=== PATIENT | male | born 1990 | race Caucasian/White ===

== ENCOUNTER 2019-05-20 06:00 | Outpatient (RCR) | payer MEDICARE, MEDICAID, SELFPAY | END 2019-06-05 23:59 | disposition home or self-care (01) | LOC: APT 06:00 | PROVIDERS: Family Provider Nurse Practitioner Family; PCP Family Medicine; Referring Provider Nurse Practitioner Family; Visit Provider Nurse Practitioner Family | DX: M54.5 Low back pain (principal) | CPT/HCPCS: 97110; 97161 ==

== ENCOUNTER 2019-05-26 16:17 | Outpatient (CLI) | payer OTHER, MEDICARE, MEDICAID, SELFPAY ==
--- NOTE | 2019-05-26 16:00 | MR_ITS ---
WS: [id number] MRI LUMBAR SPINE NONCONTRAST TECHNIQUE: Sagittal T1, T2 and STIR imaging. Axial T1 and T2 imaging. CLINICAL INFORMATION: see dx FINDINGS: Mild lumbar curve. Chronic appearing compression L1 vertebral body appears unchanged since CT abdomen pelvis . Chronic anterior wedging at this level. Small disc protrusions in the lower thoracic spine with slight effacement of ventral thecal sac more prominent at T9-T10, T10-11, T11-T12, and T1 2-L1. This is only covered on the sagittal imaging. L1-L2: Mild chronic retropulsion at L1 with slight effacement of the ventral thecal sac and mild cent ral canal stenosis. No significant disc bulging at L1-2.Mild facet arthropathy. Foramen are patent. L2-L3: Normal. L3-L4: Slight retrolisthesis L3 on L4. Mild annular bulging. Mild left and no significant right tyra inal narrowing. Mild facet arthropathy. Spinal canal is patent. L4-L5: Slight annular bulging. Moderate facet arthropathy. Mild right and no significant left foramin al narrowing. L5-S1: Slight annular bulging. Mild left and no significant right foraminal narrowing. Mild to modera te facet arthropathy. Visualized pelvic bony structures: Normal. Paravertebral soft tissues: Normal. MR/MR lumbar spine wo con* [id number] IMPRESSION: 1. Chronic compression L1 vertebral body with anterior wedging. This is unchan ged since CT June 12, 2018. Mild chronic retropulsion at L1 with mild central canal stenosis. 2. Prominent disc protrusions in the lower thoracic spine with slight effaceme nt of ventral thecal sac at T9-T10, T10-11, T11-12, T12-L1. This is only covere d on the sagittal imaging. 3. Mild left L3-4, right L4-5 and left L5-S1 foraminal narrowing. 4. Mild to moderate facet arthropathy L4-L5 and L5-S1.
== END 2019-05-26 16:18 ==
PROVIDERS: Family Provider Nurse Practitioner Family; PCP Nurse Practitioner Family; Visit Provider Nurse Practitioner Family
DX: M54.5 Low back pain (principal)
CPT/HCPCS: 72148; 99213; 99999

== ENCOUNTER 2019-05-27 20:00 | Outpatient (CLI) | payer MEDICARE, MEDICAID, SELFPAY | END 2019-05-27 20:01 | disposition home or self-care (01) | LOC: SLEEP 05-28 09:47 | PROVIDERS: Family Provider Nurse Practitioner Family; PCP Nurse Practitioner Family; Visit Provider Nurse Practitioner Family | DX: G47.33 Obstructive sleep apnea (adult) (pediatric) (principal) | CPT/HCPCS: 95810; 95811 ==

== ENCOUNTER 2019-06-06 06:00 | Outpatient (RCR) | payer MEDICARE, MEDICAID, SELFPAY | END 2019-07-06 23:59 | disposition home or self-care (01) | LOC: APT 06:00 | PROVIDERS: Family Provider Nurse Practitioner Family; PCP Nurse Practitioner Family; Referring Provider Nurse Practitioner Family; Visit Provider Nurse Practitioner Family | DX: M54.5 Low back pain (principal) | CPT/HCPCS: 97110; 97164 ==

== ENCOUNTER → 2019-06-08 12:48 | Outpatient (BNVA) | payer MEDICARE, MEDICAID, SELFPAY | PROVIDERS: Family Provider Nurse Practitioner Family; PCP Nurse Practitioner Family; Visit Provider Anesthesiology Pain Medicine | DX: G89.29 Other chronic pain (principal); M54.5 Low back pain | CPT/HCPCS: 99213; 99999 ==

== ENCOUNTER → 2019-08-03 11:23 | Outpatient (BNVA) | payer MEDICARE, SELFPAY | PROVIDERS: Family Provider Nurse Practitioner Family; PCP Nurse Practitioner Family; Visit Provider Nurse Practitioner | DX: E11.9 Type 2 diabetes mellitus without complications (principal); E55.9 Vitamin D deficiency, unspecified | CPT/HCPCS: 80053; 80061; 82306; 83036 ==

== ENCOUNTER 2019-08-05 11:04 | Outpatient (CLI) | payer MEDICARE, MEDICAID, SELFPAY ==
--- NOTE | 2019-08-05 11:30 | XR_ITS ---
WS: [id number] LUMBAR SPINE FLEXION AND EXTENSION TECHNIQUE: 3 views of the lumbar spine: Lateral neutral, flexion, and extension views. CLINICAL INFORMATION: Low back pain COMPARISON: None. FINDINGS: Anterior wedging with compression at L1 measuring approximately 60%. No retropulsion. No instability on flexion-extension. Mild facet arthropathy L5-S1. XR/XR lumbar spine f/e only [id number] IMPRESSION: 1. Anterior wedging with chronic compression at L1 is unchanged since May 26, 2019 with mild focal kyphosis at this level. 2. No instability on flexion extension.
== END 2019-08-05 11:05 | disposition home or self-care (01) ==
LOC: RADWPI 11:11
PROVIDERS: Family Provider Nurse Practitioner Family; PCP Nurse Practitioner Family; Visit Provider Licensed Practical Nurse
DX: M54.5 Low back pain (principal); M48.56XA Collapsed vertebra, not elsewhere classified, lumbar region, initial encounter for fracture; X58.XXXA Exposure to other specified factors, initial encounter
CPT/HCPCS: 72120

== ENCOUNTER → 2019-08-06 08:25 | Outpatient (BNVA) | payer MEDICARE, MEDICAID, SELFPAY | PROVIDERS: Family Provider Nurse Practitioner Family; PCP Nurse Practitioner Family; Visit Provider Nurse Practitioner | DX: F31.9 Bipolar disorder, unspecified (principal); F41.1 Generalized anxiety disorder | CPT/HCPCS: 99213 ==

== ENCOUNTER 2019-08-12 15:50 | Emergency (ER) | payer MEDICARE, MEDICAID, SELFPAY ==
[2019-08-12 16:00] VITALS: BP 128/80; PULSE 103; RESP 20; TEMP 36.6; O2SAT 96; BMI 38.4
[2019-08-12 16:20] VITALS: RESP 16
--- NOTE | 2019-08-12 16:21 | XR_ITS ---
WS: [id number] XR chest 1V portable [id number] REASON FOR EXAM: dyspnea/cough FINDINGS: The lung marquez are mildly hypoaerated. The heart and mediastinal interfaces normal. No active infiltrates, pneumonia, pulmonary edema, or pleural effusion. The hilum and apices are normal. No osseous abnormalities. XR/XR chest 1V portable [id number] IMPRESSION: Mildly hypoaerated lungs.
--- NOTE | 2019-08-12 16:29 | W.ED.SOB ---
HPI - SOB/Dyspnea General: Chief Complaint: Shortness of Breath/Dyspnea Stated Complaint: SOB Time Seen by Provider: 08/12/19 16:07 History of Present Illness: HPI Narrative: 29-year-old male comes in he was having an asthma attack he states while at [employer] at work. He did not have his albuterol inhaler with him symptoms have mostly resolved he reports having some tightness on the right side of his chest radiating across the front of his chest and upper abdomen he is not had any nausea vomiting or diarrhea no fever sweats chills no dysuria urgency or frequency. He is not had a productive cough. This began suddenly while at work [employer] at work and is resolved now. He has no residual wheezing at this time. MD elicited complaint: asthma attack Pertinent past history: asthma Onset (ago): hour(s) Context: anxiety Timing: now resolved Severity: mild Known history of: asthma Associated symptoms: Reports chest pain; Deny abdominal pain, fever(s), nausea or vomiting Review of Systems Const: Denies: fever, chills, body aches, change in appetite, fatigue or malaise ENMT: Denies: throat pain, ear pain, nasal discharge or nasal congestion Card: Reports: chest pain Resp: Denies: shortness of breath, productive cough or non-productive cough GI: Denies: abdominal pain, nausea, vomiting, vomiting blood, coffee grounds in vomit, diarrhea, constipation, bloating, blood in stool or black tarry stool : Denies: flank pain, painful urination, urinary frequency or urinary urgency Skin/Breast: Denies: rash or itching PFSH ED PFSH: Medical History Asthma Attention-deficit hyperactivity disorder, predominantly inattentive type Bipolar disorder, unspecified Displacement of lumbar intervertebral disc Generalized anxiety disorder Intervertebral disc disorder with radiculopathy of lumbosacral region Thoracic degenerative disc disease Surgical History History of splenectomy Hx of tonsillectomy Family History Mother Cancer Diabetes Family/Other Cancer UNCLE Denies family history of Anesthesia complication Bleeding disorder Social History Smoking and tobacco status: never smoked Alcohol intake: never Household members: family Marital status: Single Number of children: 0 Current occupational status: disabled History of recent travel: No Physical Exam Const: COMMON NORMALS: no apparent distress GENERAL APPEARANCE: cooperative and comfortable ORIENTATION/CONSCIOUSNESS: Yes awake, Yes oriented to person, Yes oriented to place and Yes oriented to time HENMT: COMMON NORMALS: normocephalic, head/scalp atraumatic, hearing grossly normal bilaterally, external ears normal, EAC's normal, TM's normal bilaterally, nasal mucous membranes and turbinates normal, moist oral mucous membranes and oropharynx normal HEAD & SCALP: normocephalic and atraumatic NOSE: nasal mucous membranes and turbinates normal EXTERNAL EAR: Yes external ears normal EXTERNAL AUDITORY CANAL: EAC's normal TYMPANIC MEMBRANE: TM's normal bilaterally Eye: COMMON NORMALS: PERRL, EOMs intact bilaterally, conjunctivae normal and no scleral icterus CONJUNCTIVA: Yes conjunctivae normal PUPIL: Yes PERRL Neck/C-Spine: COMMON NORMALS: full ROM, no lymphadenopathy, supple and no JVD Lymph: LYMPHATIC: no lymphadenopathy noted and no lymphedema noted Resp: COMMON NORMALS: normal respiratory effort, no retractions, no use of accessory muscles and clear to auscultation bilaterally AUSCULTATION: clear to auscultation bilaterally Cardio: COMMON NORMALS: no JVD, regular rate, regular rhythm and no murmurs RATE: regular rate RHYTHM: regular rhythm GI: COMMON NORMALS: soft to palpation and no hepatosplenomegaly AUSCULTATION: Yes normoactive bowel sounds PALPATION: Yes soft, No tender, No guarding and Yes no hepatosplenomegaly Extremity: COMMON NORMALS: normal to inspection, normal capillary refill, no clubbing, cyanosis or edema, no calf tenderness and no pedal edema Neuro: SENSORIUM/ORIENTATION: Yes oriented to person, Yes oriented to place and Yes oriented to time Skin: COMMON NORMALS: no rashes or lesions noted GENERAL SKIN EXAM: no rashes or lesions noted Course Vital Signs: Vital signs: Vital Signs Temperature 97.8 F 08/12/19 16:00 Pulse Rate 91 08/12/19 17:13 Respiratory Rate 16 08/12/19 17:13 Blood Pressure 128/80 08/12/19 16:00 Pulse Oximetry 98 08/12/19 17:13 MDM - SOB/Dyspnea MDM Narrative: Medical decision making narrative: Symptoms resolved now. There is no evidence of wheezing on exam. Give a prescription for albuterol inhaler to use PRN. Patient does have a history of some anxiety discussed with her that this might of been precipitated by anxiety especially given that is completely resolved there is no residual findings on physical exam. He acknowledges it could be but is not sure. Have him follow-up with his primary care doctor as needed. Discharge Plan Discharge Patient Disposition: Home, Self-Care Clinical Impression: Asthma Condition: Stable Prescriptions: New albuterol sulfate 90 mcg/actuation HFA aerosol inhaler 2 inh INHALATION Q4H PRN (Reason: shortness of breath or wheezing) Qty: 18 RF: 0 No Action melatonin 5 mg capsule PO .q hs RF: 0 tizanidine 4 mg tablet 4 mg PO TID MDD 3 PRN (Reason: muscle spasticity) Qty: 60 RF: 0 mupirocin calcium 2 % cream 1 applic TOPICAL TID 14 Days Qty: 15 RF: 2 hydroxyzine HCl 25 mg tablet 25 mg PO BID PRNRF: 0 budesonide-formoterol 160-4.5 mcg/actuation HFA aerosol inhaler 2 puff INHALATION Q12H RF: 0 tamsulosin 0.4 mg capsule 0.4 mg PO .day RF: 0 twyrqwc-qitmuwfcphkjd-jcsjngzv 250-250-65 mg tablet 1 tab PO Q6H RF: 0 propranolol 10 mg tablet 10 mg PO .at bed RF: 0 albuterol sulfate [Ventolin HFA] 90 mcg/actuation HFA aerosol inhaler 2 puff INHALATION Q6H PRNRF: 0 lurasidone 120 mg tablet 120 mg PO DAILY Qty: 30 RF: 1 lamotrigine 25 mg tablet 50 mg PO BID Qty: 120 RF: 0 gabapentin 300 mg capsule 300 mg PO BID Qty: 60 RF: 1 atomoxetine 40 mg capsule 40 mg PO BID Qty: 60 RF: 1 zolpidem 5 mg tablet 5 mg PO .q hs Qty: 30 RF: 1 omeprazole 40 mg capsule,delayed release(DR/EC) 40 mg PO DAILY 30 Days Qty: 30 RF: 5 (DME) cpap Qty: 1 RF: 0 fluticasone propionate 50 mcg/actuation spray,suspension 2 spray INTRANASAL DAILY Qty: 11.1 RF: 0 cetirizine 10 mg tablet 10 mg PO DAILY Qty: 30 RF: 0 Discharge Orders: Discharge Order (Routine); Ordered 08/12/19 Ordered By: Kwabena Pryor Referrals: Betzaida Santos FNP-C [Primary Care Provider] - Discharge Date/Time: 08/12/19 17:13 Coding Level of Care Code ED Electronic [employer] Technical for Chg Fwd Exam Comprehensive
[2019-08-12 17:13] VITALS: PULSE 91; RESP 16; O2SAT 98
== END 2019-08-12 17:13 | disposition home or self-care (01) ==
LOC: ER 17:55
PROVIDERS: Emergency Provider Family Medicine; PCP Nurse Practitioner Family
DX: J45.909 Unspecified asthma, uncomplicated (principal); Z79.82 Long term (current) use of aspirin
CPT/HCPCS: 12345; 71045; 99281; 99282

== ENCOUNTER 2019-09-24 12:23 | Outpatient (CLI) | payer MEDICARE, MEDICAID, SELFPAY ==
--- NOTE | 2019-09-24 13:00 | MR_ITS ---
WS: [id number] MRI THORACIC SPINE WITHOUT CONTRAST TECHNIQUE: Sagittal T1, T2 and STIR imaging. Axial T2 imaging. Noncontrast imaging obtained. CLINICAL INFORMATION: M51.34 Other intervertebral disc degeneration, thoracic r... COMPARISON: Lumbar spine MRI May 26, 2019 FINDINGS: Mild thoracic curve. Mild thoracic kyphosis. No acute compression. No acute compression fractures. Ch ronic anterior wedging L1. Small shallow central disc protrusion T6-C7, T7-T8, T8-T9, T9-T10, T10-11, and T12-L1. No high-grade central canal stenosis. Cord signal is normal. Left pericentral protrusion T9-T10 with slight narrowing of the left subarticular recess and mild lef t foraminal narrowing. Small left pericentral protrusion T10-11 with mild central canal stenosis. Mild left T11-T12 and right T10-11 foraminal narrowing. Moderate facet arthropathy lower thoracic spine. Normal caliber thoracic aorta. Adrenal glands are no rmal. MR/MR thoracic spin wo con* [id number] IMPRESSION: 1. Mild thoracic curve. Mild thoracic kyphosis. No acute compression fractures . 2. No significant spinal canal narrowing. Cord signal is normal. 3. Small disc protrusions in the mid and lower thoracic spine described above more prominent at T6-T7, T7-8, T10-11, and T12-L1. 4. Left pericentral protrusion T10-11 with mild central canal stenosis. 5. Mild bony foraminal narrowing left T9-T10, left T11-T12, and right T10-T11
== END 2019-09-24 12:24 | disposition home or self-care (01) ==
LOC: RADSHAW 12:31
PROVIDERS: PCP Nurse Practitioner Family; Visit Provider Specialist
DX: M51.34 Other intervertebral disc degeneration, thoracic region (principal); M51.24 Other intervertebral disc displacement, thoracic region; M48.04 Spinal stenosis, thoracic region
CPT/HCPCS: 72146

== ENCOUNTER → 2019-11-03 12:09 | Outpatient (BNVA) | payer MEDICARE, MEDICAID, SELFPAY | PROVIDERS: PCP Nurse Practitioner Family; Visit Provider Nurse Practitioner Family | DX: E55.9 Vitamin D deficiency, unspecified (principal); K21.9 Gastro-esophageal reflux disease without esophagitis; R82.90 Unspecified abnormal findings in urine; R51 Headache; J45.20 Mild intermittent asthma, uncomplicated; F41.9 Anxiety disorder, unspecified; Z79.899 Other long term (current) drug therapy; N63.0 Unspecified lump in unspecified breast; E11.69 Type 2 diabetes mellitus with other specified complication; J30.89 Other allergic rhinitis; R39.11 Hesitancy of micturition | CPT/HCPCS: 80053; 81000; 82306; 83036; 84443; 85025 ==

== ENCOUNTER → 2019-11-04 13:22 | Outpatient (BNVA) | payer MEDICARE, MEDICAID, SELFPAY | PROVIDERS: PCP Nurse Practitioner Family; Visit Provider Anesthesiology Pain Medicine | DX: M51.34 Other intervertebral disc degeneration, thoracic region (principal); M51.26 Other intervertebral disc displacement, lumbar region; S32.019D Unspecified fracture of first lumbar vertebra, subsequent encounter for fracture with routine healing; X58.XXXD Exposure to other specified factors, subsequent encounter; M51.17 Intervertebral disc disorders with radiculopathy, lumbosacral region | CPT/HCPCS: 99213 ==

== ENCOUNTER 2019-11-04 14:48 | Outpatient (CLI) | payer MEDICARE, MEDICAID, SELFPAY ==
[2019-11-04 15:12] LABS: Basophils # 0.1 10^3/uL (0.0-0.1); Basophils % 0.8 %; Eosinophils # 0.3 10^3/uL (0.0-0.8); Hemoglobin 14.8 g/dL (11.7-16.6); Lymphocytes # 5.1 10^3/uL (0.8-4.8); Lymphocytes % 37.5 %; Mean Corpuscular HGB Conc 32.9 g/dL (30.0-36.0); Mean Corpuscular Hemoglobin 30.3 pg (28.0-34.0); Mean Platelet Volume 10.9 fL (7.4-10.4); Monocytes # 1.5 10^3/uL (0.2-0.9); Neutrophils # 6.52 10^3/uL (1.8-7.7); Neutrophils % 48.5 %; Nucleated Red Blood Cells % 0 %; Platelet Count 559 10^3/cmm (130-400); Red Blood Count 4.89 10^6/uL (4.1-5.3); Red Cell Distribution Width 14.6 % (12.1-15.1); White Blood Count 13.5 10^3/uL (4.0-10.0)
[2019-11-04 15:33] LABS: Alanine Aminotransferase 35 U/L (0-41); Albumin Level 4.6 g/dL (3.5-5.2); Alkaline Phosphatase 98 IU/L (40-130); Aspartate Amino Transferase 31 U/L (0-40); Blood Urea Nitrogen 11 mg/dL (6-20); Calcium 9.6 mg/dL (8.5-10.5); Carbon Dioxide 24 mmol/L (22-29); Chloride 103 mmol/L (98-107); Globulin 2.8 g/dL (1.3-4.6); Glomerular Filtration Rate 115.1 mL/min (90-130); Glucose 93 mg/dL (65-115); Osmolality Calculated 282 mOsm/kg (285-295); Sodium 138 mmol/L (136-145); Total Bilirubin 0.3 mg/dL (0.15-1.2); Total Protein 7.4 g/dL (6.6-8.7)
[2019-11-04 16:03] LABS: Anion Gap 14.9 (5-19); Potassium 3.9 mmol/L (3.5-5.1)
--- NOTE | 2019-11-05 11:59 | ONC FU_ITS ---
Dr. Zuniga follow up note Patient: Willi Meadows Unit #: [id number]: 1990 Dicatated By: Randolph Zuniga M.D.Date of Visit:Nov 04, 2019 Onc Med Follow-up/Prog Note History of Present Illness: Mr. 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 Since then his white blood count and platelets go up and down . Patient denies any history of abnormal bleeding except gum bleed but he has some dental problem for which he is seeing dentist. Other than that no history of petechiae or ecchymosis, no history of hemoptysis or hematemesis. No night sweats, no weight loss, no peripheral lymphadenopathy, no history of recurrent infections Came for follow-up, denies any specific complaints, no fever chills, no nausea or vomiting, no diarrhea or constipation, no abdominal fullness, no recurrent fever or infection. Patient has history of chronic back pain, which is being managed by pain clinic and patient said he is considering steroid injection to his back and need clearance from hematology. Medications: Ambien 1 Tablet (of 10 mg) Oral at bedtime, Flomax 1 (0.4 mg) Capsule Oral daily, Latuda 1 (120 mg) Tablet Oral daily, Meclizine HCl 1 (25 mg) Tablet Oral daily, Omeprazole 1 (40 mg) Capsule Delayed Release Oral daily, Strattera 1 Capsule (of 40 mg) Oral daily, Vitamin D2 1 (45049 Units) Tablet Oral q 7 days Allergies: Adhesive Tape, anesthesia extension set, Depakote ER, Insect stings, LATEX, morphine derivatives, Peanut, and Penicillins. Review of Systems: Constitutional - His energy level is low. Appetite is good and weight is stable. No fever, chills, hot flashes, or night sweats, ENMT - No sinus congestion/drainage. No mouth sores. No sore throat or difficulty swallowing, Hematologic/Lymphatic - He bruises easily, Respiratory - He has shortness of breath with activity. No cough. No pleuritic pain, Cardiovascular - No angina pain, Gastrointestinal - He has nausea. No vomiting. He has heartburn. No acid reflux. He has diarrhea and constipation off and on. Bloody stools, Genitourinary (M) - No dysuria or hematuria. No urinary frequency. No urgency or incontinence, Musculoskeletal - No joint or bone pain, Neurologic - He has dizziness. No numbness/paresthesias or other focal neurologic symptoms, Psychiatric - He has anxiety. No depression. No insomnia. Vital Signs: Performed on Nov 04, 2019 15:55 Height - 66.00 in Weight - 252.2 lbs (HIGH) BSA - 2.21 sq.m BMI - 40.71 (HIGH) Temperature - 97.5 F (LOW) Pulse - 110 /min (HIGH) Respiration - 24 /min BP - 127/85 mm(hg) O2 Sat - 94 % (LOW) Pain - 6 Performance Status: 0 - Fully active, able to carry on all predisease activities without restrictions. (ECOG) Physical Examination: ENMT - No mouth sores, no thrush, no jaundice, no peripheral lymphadenopathy, Respiratory - Lungs are clear, Cardiovascular - Regular rate and rhythm of heart, Abdomen - Soft, bowel sounds present, no organomegaly, Extremities - No visible edema. Lab/Imaging: Most recent lab results are not available for this patient. Impression: History of ITP initially diagnosed in September 2010, treated with steroids but due to excessive weight gain and questionable psychosis due to steroids so, were discontinued and splenectomy was performed on 11/25/2010. Mild leukocytosis/thrombocytosis probably due to splenectomy or occult bleeding or subclinical infection, patient has alternate lifestyle Chronic back pain, followed in pain clinic Plan: Discussed with patient regarding his labs white blood count 13.5 hemoglobin 14.8 crit 45 platelets 559,000 with a normal differential CMP within normal limits Clinically, patient is doing well with no new signs symptom or signs symptoms suggestive of infection. His follow-up CBC shows persistent but stable, mild leukocytosis/thrombocytosis, which could be due to splenectomy done in the past other possibilities could be underlying chronic inflammation or subclinical infection. We will continue to monitor and he will return to clinic in 3 months with CBC CMP and sed rate. Based on his CBC, patient is mild but stable leukocytosis/thrombocytosis, patient is cleared from hematological point of view for procedure but again assuming normal rest of the preprocedure evaluation Signed By: Randolph Zuniga M.D. <<Signature on File>>
== END 2019-11-04 14:49 | disposition home or self-care (01) ==
LOC: ONCMED 14:53
PROVIDERS: PCP Nurse Practitioner Family; Visit Provider Internal Medicine Hematology & Oncology
DX: D72.829 Elevated white blood cell count, unspecified (principal); D47.3 Essential (hemorrhagic) thrombocythemia; Z90.81 Acquired absence of spleen; G89.29 Other chronic pain; M54.9 Dorsalgia, unspecified
CPT/HCPCS: 80053; 85025; G0463

== ENCOUNTER → 2019-12-22 09:05 | Outpatient (BNVA) | payer MEDICARE, MEDICAID, SELFPAY | PROVIDERS: PCP Nurse Practitioner Family; Visit Provider Nurse Practitioner | DX: F31.9 Bipolar disorder, unspecified (principal); F41.1 Generalized anxiety disorder; F90.0 Attention-deficit hyperactivity disorder, predominantly inattentive type | CPT/HCPCS: 99214 ==

== ENCOUNTER → 2019-12-23 09:39 | Outpatient (BNVA) | payer MEDICARE, MEDICAID, SELFPAY | PROVIDERS: PCP Nurse Practitioner Family; Referring Provider Nurse Practitioner Family; Visit Provider Specialist | DX: G43.711 Chronic migraine without aura, intractable, with status migrainosus (principal); G31.84 Mild cognitive impairment of uncertain or unknown etiology; E66.01 Morbid (severe) obesity due to excess calories; G47.33 Obstructive sleep apnea (adult) (pediatric); R20.2 Paresthesia of skin | CPT/HCPCS: 99215 ==

== ENCOUNTER 2020-01-07 11:49 | Outpatient (CLI) | payer MEDICARE, MEDICAID, SELFPAY ==
--- NOTE | 2020-01-07 12:09 | MR_ITS ---
WS: [id number] MRI HEAD WITHOUT CONTRAST TECHNIQUE: Sagittal T1, T2 axial, T2 axial FLAIR, axial and coronal T1 images, axial susceptibility w eighted imaging, axial diffusion weighted images, and coronal T2 images were obtained. CLINICAL INFORMATION: R41.3 Other amnesia COMPARISON: CT head January 08, 2019 FINDINGS: No evidence of restricted diffusion to suggest acute ischemia. Ventricular system and basal cisterns are patent. No suspicious intracranial signal abnormalities. Mild parenchymal volume loss. Moderate a trophy involving the cerebellar vermis. Cerebellar hemispheres are normal in appearance. Otherwise no rmal posterior fossa. Normal vascular flow voids at the skull base. No extra-axial fluid collections. No evidence of mass or mass effect. Retention cysts in the maxillar y sinuses left greater than right. No hemosiderin on susceptibly weighted images. Normal optic chiasm and pituitary infundibulum. Temporal lobes and hippocampal formations are normal in appearance. Normal cavernous sinuses and Meck el's cave. MR/MR head wo con* [id number] IMPRESSION: 1. No evidence of restricted diffusion to suggest acute ischemia. 2. No suspicious intracranial signal abnormalities. 3. Moderate atrophy involving the cerebellar vermis 4. Mild parenchymal volume loss more pronounced in the parietal lobes somewhat prominent for a patient this age. 5. Temporal lobes and hippocampal formations are normal in appearance.
== END 2020-01-07 11:50 | disposition home or self-care (01) ==
PROVIDERS: PCP Nurse Practitioner Family; Visit Provider Specialist
DX: R41.3 Other amnesia (principal); G31.9 Degenerative disease of nervous system, unspecified
CPT/HCPCS: 70551

== ENCOUNTER → 2020-01-21 07:38 | Outpatient (BNVA) | payer MEDICARE, MEDICAID, SELFPAY | PROVIDERS: PCP Nurse Practitioner Family; Visit Provider Nurse Practitioner | DX: F31.9 Bipolar disorder, unspecified (principal); F41.1 Generalized anxiety disorder; F90.0 Attention-deficit hyperactivity disorder, predominantly inattentive type; F43.12 Post-traumatic stress disorder, chronic | CPT/HCPCS: 99214 ==

== ENCOUNTER → 2020-02-18 08:08 | Outpatient (BNVA) | payer MEDICARE, MEDICAID, SELFPAY | PROVIDERS: PCP Nurse Practitioner Family; Visit Provider Anesthesiology | DX: M47.26 Other spondylosis with radiculopathy, lumbar region (principal); M51.26 Other intervertebral disc displacement, lumbar region; M51.17 Intervertebral disc disorders with radiculopathy, lumbosacral region; M51.34 Other intervertebral disc degeneration, thoracic region; Z79.891 Long term (current) use of opiate analgesic | CPT/HCPCS: 99214 ==

== ENCOUNTER → 2020-03-08 07:40 | Outpatient (BNVA) | payer MEDICARE, MEDICAID, SELFPAY | PROVIDERS: PCP Nurse Practitioner Family; Visit Provider Nurse Practitioner | DX: F31.9 Bipolar disorder, unspecified (principal); F41.1 Generalized anxiety disorder; F90.0 Attention-deficit hyperactivity disorder, predominantly inattentive type | CPT/HCPCS: 99214 ==

== ENCOUNTER → 2020-03-17 13:51 | Outpatient (BNVA) | payer MEDICARE, MEDICAID, SELFPAY | PROVIDERS: PCP Nurse Practitioner Family; Visit Provider Anesthesiology | DX: M54.41 Lumbago with sciatica, right side (principal); M47.26 Other spondylosis with radiculopathy, lumbar region; M51.26 Other intervertebral disc displacement, lumbar region; M51.34 Other intervertebral disc degeneration, thoracic region; Z79.891 Long term (current) use of opiate analgesic | CPT/HCPCS: 99213; 99214 ==

== ENCOUNTER → 2020-04-25 09:20 | Outpatient (BNVA) | payer MEDICARE, MEDICAID, SELFPAY | PROVIDERS: PCP Nurse Practitioner Family; Visit Provider Nurse Practitioner | DX: F31.9 Bipolar disorder, unspecified (principal); F41.1 Generalized anxiety disorder; F90.0 Attention-deficit hyperactivity disorder, predominantly inattentive type | CPT/HCPCS: 99214 ==

== ENCOUNTER → 2020-05-10 09:30 | Outpatient (BNVA) | payer MEDICARE, MEDICAID, SELFPAY | PROVIDERS: PCP Nurse Practitioner Family; Visit Provider Nurse Practitioner | DX: F31.9 Bipolar disorder, unspecified (principal); F41.1 Generalized anxiety disorder; F90.0 Attention-deficit hyperactivity disorder, predominantly inattentive type | CPT/HCPCS: 99214 ==

== ENCOUNTER → 2020-06-16 08:54 | Outpatient (BNVA) | payer MEDICARE, MEDICAID, SELFPAY | PROVIDERS: PCP Nurse Practitioner Family; Visit Provider Anesthesiology | DX: M47.26 Other spondylosis with radiculopathy, lumbar region (principal); M51.17 Intervertebral disc disorders with radiculopathy, lumbosacral region; M51.34 Other intervertebral disc degeneration, thoracic region; M51.26 Other intervertebral disc displacement, lumbar region; S32.019D Unspecified fracture of first lumbar vertebra, subsequent encounter for fracture with routine healing; S32.010D Wedge compression fracture of first lumbar vertebra, subsequent encounter for fracture with routine healing; X58.XXXD Exposure to other specified factors, subsequent encounter; Z79.891 Long term (current) use of opiate analgesic | CPT/HCPCS: 99213; 99214 ==

== ENCOUNTER → 2020-06-30 11:58 | Outpatient (BNVA) | payer MEDICARE, MEDICAID, SELFPAY | PROVIDERS: PCP Nurse Practitioner Family; Visit Provider Nurse Practitioner | DX: F41.1 Generalized anxiety disorder (principal); F31.9 Bipolar disorder, unspecified; F90.0 Attention-deficit hyperactivity disorder, predominantly inattentive type | CPT/HCPCS: 99214 ==

== ENCOUNTER → 2020-08-17 08:30 | Outpatient (BNVA) | payer MEDICARE, MEDICAID, SELFPAY | PROVIDERS: PCP Nurse Practitioner Family; Visit Provider Nurse Practitioner | DX: F41.1 Generalized anxiety disorder (principal); F90.0 Attention-deficit hyperactivity disorder, predominantly inattentive type; F31.9 Bipolar disorder, unspecified | CPT/HCPCS: 99214 ==

== ENCOUNTER 2020-09-01 21:01 | Emergency (ER) | payer MEDICARE, MEDICAID, SELFPAY ==
[2020-09-01 21:18] VITALS: BP 157/95; PULSE 88; RESP 18; TEMP 37.1; O2SAT 95; BMI 45.7
--- NOTE | 2020-09-01 21:22 | CTR_ITS ---
PROCEDURE INFORMATION: Exam: CT Abdomen And Pelvis With Contrast Exam date and time: 09/01/2020 9:25 PM Age: 30 years old Clinical indication: Abdominal pain; Localized; Upper; Prior surgery; Surgery type: Splenectomy, hernia; Additional info: Abd pain TECHNIQUE: Imaging protocol: Computed tomography of the abdomen and pelvis with contrast. Radiation optimization: All CT scans at this facility use at least one of these dose optimization techniques: automated exposure control; mA and/or kV adjustment per patient size (includes targeted exams where dose is matched to clinical indication); or iterative reconstruction. Contrast material: OMNI 300; Contrast volume: 95 ml; Contrast route: INTRAVENOUS (IV); COMPARISON: CT abdomen pelvis w con* [id number] 06/12/2018 7:21 PM RADIATION DOSE METRICS: Total DLP (mGy-cm): 1875.21 FINDINGS: Liver: Normal. No mass. Gallbladder and bile ducts: Normal. No calcified stones. No ductal dilation. Pancreas: Normal. No ductal dilation. Spleen: Status post splenectomy. Adrenal glands: Normal. No mass. Kidneys and ureters: Normal. No hydronephrosis. Stomach and bowel: Few diverticula are seen on the distal descending colon compatible with mild diverticulosis. There are nondilated loops of small bowel seen, some containing desiccated bowel contents suggesting small bowel stasis and enteritis. Appendix: The appendix is visualized and is normal in configuration. Intraperitoneal space: See Lymph nodes finding. Vasculature: Unremarkable. No abdominal aortic aneurysm. Lymph nodes: There multiple small mesenteric lymph nodes seen within the right flank that are below CT criteria for lymphadenopathy. However, mesenteric lymphadenitis cannot be entirely excluded. Urinary bladder: Unremarkable as visualized. Reproductive: Unremarkable as visualized. Bones/joints: There is moderate anterior wedge compression of the L1 vertebral body. Soft tissues: Unremarkable. CT/CT abdomen pelvis w con* [id number] IMPRESSION: 1. Nondilated small bowel loops containing some desiccated bowel contents could represent small bowel stasis and enteritis. 2. Small lymph nodes seen in the right flank below CT criteria for lymphadenopathy. However, mild mesenteric lymphadenitis cannot be entirely excluded. 3. Normal appendix 4. No evidence for ureteral obstruction Radiation Dose CTDIVOL = (mGy): DLP = 1875.21 (mGy-cm)
--- NOTE | 2020-09-01 21:26 | ED_ITS ---
HPI - Abdominal Pain General: Chief Complaint: Abdominal Pain Stated Complaint: diarrhea Time Seen by Provider: 09/01/20 21:22 Source: patient Mode of arrival: ambulatory Limitations: no limitations History of Present Illness: HPI narrative: 30-year-old male has been having diarrhea since March. has been having abdominal pain as well. States been worsening since March he has tried multiple different things including diet modification. States his pain is diffuse in nature and rates it a 5 out of 10 states his stools are watery. He has been seen by multiple providers and saw Dr. Reddy recently. He is scheduled for a colonoscopy in a month. He denies any worsening improving factors. Associated Symptoms: Reports diarrhea; Denies chills, dysuria and fever(s) Review of Systems Const: Denies: fever(s), chills, body aches or change in appetite Eyes: Denies: blurry vision or eye discomfort ENMT: Denies: throat pain or dental pain Card: Denies: chest pain Resp: Denies: dyspnea GI: Reports: abdominal pain and diarrhea : Denies: dysuria Musc: Denies: neck pain or back pain Skin/Breast: Denies: rash Neuro: Denies: headache(s) Psych: Denies: depression Thaddeus/Lymph: Denies: easy bruising All/Imm: Denies: urticaria PFSH ED PFSH: Medical History Anxiety Asthma Attention-deficit hyperactivity disorder, predominantly inattentive type Bipolar disorder, unspecified Calculus of kidney Compression fracture of L1 vertebra with routine healing Displacement of lumbar intervertebral disc Frequent headaches Generalized anxiety disorder GERD (gastroesophageal reflux disease) Idiopathic thrombocytopenic purpura (ITP) 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, lumbar region Thoracic degenerative disc disease Urinary hesitancy Surgical History H/O esophagogastroduodenoscopy History of hernia repair History of splenectomy Hx of tonsillectomy Status post colonoscopy Family History Mother Cancer Diabetes Family/Other Cancer UNCLE Denies family history of Anesthesia complication Bleeding disorder Social History Smoking and tobacco status: never smoked Second hand smoke exposure: Yes Alcohol intake: never Household members: family Marital status: Single Number of children: 0 Current occupational status: disabled History of recent travel: No Physical Exam Const: COMMON NORMALS: no acute distress, patient oriented x3 and healthy appearing HENMT: COMMON NORMALS: normocephalic and atraumatic HEAD & SCALP: normocephalic and atraumatic Eye: COMMON NORMALS: Equal, round and reactive pupils present and EOMs intact bilaterally PUPIL: Yes Equal, round and reactive pupils present Neck/C-Spine: COMMON NORMALS: full ROM and supple Chest: COMMONS NORMALS: normal inspection of the chest and normal palpation of entire chest wall Resp: COMMON NORMALS: normal respiratory effort, No retractions, No use of accessory muscles and clear to auscultation bilaterally AUSCULTATION: clear to auscultation bilaterally Cardio: COMMON NORMALS: regular rate, regular rhythm and No murmurs present (Cardio) RATE: regular rate RHYTHM: regular rhythm GI: COMMON NORMALS: Normal to inspection, nondistended, normoactive bowel sounds present, Soft to palpation, non-tender and no masses PALPATION: Yes Soft to palpation Extremity: COMMON NORMALS: normal to inspection and full ROM Neuro: COMMON NORMALS: patient oriented x3, moves all extremities and no focal motor deficits Psych: COMMON NORMALS: mental status grossly normal, Normal thought process present and cooperative THOUGHT PROCESS: Normal thought process present Skin: COMMON NORMALS: no rashes or lesions noted and no wounds GENERAL SKIN EXAM: no rashes or lesions noted Course Vital Signs: Vital signs: Vital Signs Temperature 98.7 F 09/01/20 21:18 Pulse Rate 88 09/01/20 21:18 Respiratory Rate 18 09/01/20 21:18 Blood Pressure 157/95 09/01/20 21:18 Pulse Oximetry 95 09/01/20 21:18 MDM - Abdominal Pain MDM Narrative: Medical decision making narrative: Patient presents with chronic diarrhea and abdominal pain. CT showed no acute findings. He is to follow-up with Dr. Reddy as scheduled for his colonoscopy. He is to return if worsening. He understands agrees the plan. Lab Data: Labs: Lab Results 09/01/20 09/01/20 Range/Units 21:42 21:42 WBC 15.1 H (4.0-10.0) 10^3/ uL RBC 4.84 (4.1-5.3) 10^6/u L Hgb 15.1 (11.7-16.6) g/dL Hct 45.3 (42.0-52.0) % MCV 93.6 (80-94) fL MCH 31.2 (28.0-34.0) pg MCHC 33.3 (30.0-36.0) g/dL RDW 14.6 (12.1-15.1) % Plt Count 526 H (130-400) 10^3/c mm MPV 11.1 H (7.4-10.4) fL Neut % (Auto) 45.4 % Lymph % (Auto) 38.9 % Borden % (Auto) 12.6 % Eos % (Auto) 1.8 % Baso % (Auto) 0.9 % Neut # (Auto) 6.89 (1.8-7.7) 10^3/u L Lymph # (Auto) 5.9 H (0.8-4.8) 10^3/u L Borden # (Auto) 1.9 H (0.2-0.9) 10^3/u L Eos # (Auto) 0.3 (0.0-0.8) 10^3/u L Baso # (Auto) 0.1 (0.0-0.1) 10^3/u L Nucleated RBC % (a uto) 0 % Nucleated RBCs # 0.0 /100WBC Sodium 139 (136-145) mmol/L Potassium 4.1 (3.5-5.1) mmol/L Chloride 106 (98-107) mmol/L Carbon Dioxide 24 (22-29) mmol/L Anion Gap 13.1 (5-19) BUN 10 (6-20) mg/dL Creatinine 0.6 L (0.7-1.2) mg/dL GFR Calculation 159.3 H (90-130) mL/min Glucose 90 (65-115) mg/dL Calculated Osmolal ity 287 (285-295) mOsm/k g Calcium 8.9 (8.5-10.5) mg/dL Total Bilirubin 0.3 (0.15-1.2) mg/dL AST 21 (0-40) U/L ALT 33 (0-41) U/L Alkaline Phosphata se 101 (40-130) IU/L Total Protein 7.0 (6.6-8.7) g/dL Albumin 4.3 (3.5-5.2) g/dL Globulin 2.7 (1.3-4.6) g/dL Lipase 37 (13-60) U/L Imaging Data ^: CT Abd/Pel: Attestation: I personally reviewed and interpreted this imaging study as follows: Radiologist's impression: [employer] [address] [address] Scan Report Signed Patient: Willi Meadows Unit #: [id number] : 1990 Age/Sex: 30 / M ADM Date: 09/01/20 Loc: ER Room/Bed: Attending Dr: Ordering Provider/Ordering MD: Oscar Jurado MD Date of Service: 09/01/20 Procedure(s): CT abdomen pelvis w con* [id number] Accession Number(s): [id number] Report Number: [id number] PROCEDURE INFORMATION: Exam: CT Abdomen And Pelvis With Contrast Exam date and time: 09/01/2020 9:25 PM Age: 30 years old Clinical indication: Abdominal pain; Localized; Upper; Prior surgery; Surgery type: Splenectomy, hernia; Additional info: Abd pain TECHNIQUE: Imaging protocol: Computed tomography of the abdomen and pelvis with contrast. Radiation optimization: All CT scans at this facility use at least one of these dose optimization techniques: automated exposure control; mA and/or kV adjustment per patient size (includes targeted exams where dose is matched to clinical indication); or iterative reconstruction. Contrast material: OMNI 300; Contrast volume: 95 ml; Contrast route: INTRAVENOUS (IV); COMPARISON: CT abdomen pelvis w con* [id number] 06/12/2018 7:21 PM RADIATION DOSE METRICS: Total DLP (mGy-cm): 1875.21 FINDINGS: Liver: Normal. No mass. Gallbladder and bile ducts: Normal. No calcified stones. No ductal dilation. Pancreas: Normal. No ductal dilation. Spleen: Status post splenectomy. Adrenal glands: Normal. No mass. Kidneys and ureters: Normal. No hydronephrosis. Stomach and bowel: Few diverticula are seen on the distal descending colon compatible with mild diverticulosis. There are nondilated loops of small bowel seen, some containing desiccated bowel contents suggesting small bowel stasis and enteritis. Appendix: The appendix is visualized and is normal in configuration. Intraperitoneal space: See Lymph nodes finding. Vasculature: Unremarkable. No abdominal aortic aneurysm. Lymph nodes: There multiple small mesenteric lymph nodes seen within the right flank that are below CT criteria for lymphadenopathy. However, mesenteric lymphadenitis cannot be entirely excluded. Urinary bladder: Unremarkable as visualized. Reproductive: Unremarkable as visualized. Bones/joints: There is moderate anterior wedge compression of the L1 vertebral body. Soft tissues: Unremarkable. CT/CT abdomen pelvis w con* [id number] IMPRESSION: 1. Nondilated small bowel loops containing some desiccated bowel contents could represent small bowel stasis and enteritis. 2. Small lymph nodes seen in the right flank below CT criteria for lymphadenopathy. However, mild mesenteric lymphadenitis cannot be entirely excluded. 3. Normal appendix 4. No evidence for ureteral obstruction Radiation Dose CTDIVOL = (mGy): DLP = 1875.21 Discharge Plan Discharge Patient Disposition: Home Clinical Impression: Abdominal pain, Diarrhea Condition: Stable Prescriptions: No Action melatonin 5 mg capsule 10 mg PO BEDTIME@2200 RF: 0 mupirocin calcium 2 % cream 1 applic TOPICAL TID 14 Days Qty: 15 RF: 2 hydroxyzine HCl 25 mg tablet 25 mg PO BID PRN (Reason: anxiety) 30 Days Qty: 30 RF: 5 rjzsjxd-vunhkwbsghokp-xwlkttox 250-250-65 mg tablet 2 tab PO Q6H 30 Days Qty: 240 RF: 5 pantoprazole [Protonix] 20 mg tablet,delayed release (DR/EC) 40 mg PO DAILY@1000 RF: 0 propranolol 10 mg tablet 10 mg PO BEDTIME@2200 RF: 0 albuterol sulfate [Ventolin HFA] 90 mcg/actuation HFA aerosol inhaler 2 puff INHALATION Q6H PRN (Reason: Shortness Of Breath) RF: 0 budesonide-formoterol [Symbicort] 160-4.5 mcg/actuation HFA aerosol inhaler 2 puff inhalation BID@1000,2200 RF: 0 Aimovig Autoinjector 140 mg/mL auto-injector 140 mg SUBCUT Q30D RF: 0 tramadol 50 mg tablet 50 mg PO TID PRN (Reason: pain) 30 Days Qty: 90 RF: 2 (DME) cpap Qty: 1 RF: 0 Benadryl 50 mg Capsule 50 mg PO Q6H PRN (Reason: Allergy Symptoms) RF: 0 Lastacaft 0.25 % drops See Rx Instructions .ROUTE .COMPLEX RF: 0 Lamictal 150 mg tablet 75 mg PO BID@1000,2200 RF: 0 cetirizine 10 mg tablet 10 mg PO DAILY@1000 RF: 0 gabapentin 400 mg capsule 400 mg PO BID@1000,2200 RF: 0 tamsulosin 0.4 mg capsule 0.4 mg PO DAILY@1000 RF: 0 fluticasone propionate 50 mcg/actuation spray,suspension 2 spray INTRANASAL DAILY@1000 RF: 0 atomoxetine 40 mg capsule 40 mg PO BID@1000,2200 RF: 0 Lunesta 3 mg tablet 3 mg PO BEDTIME@220 RF: 0 cholecalciferol (vitamin D3) 1,250 mcg (50,000 unit) tablet 50,000 unit PO Q7D RF: 0 lurasidone 120 mg tablet 120 mg PO DAILY@1000 RF: 0 Discharge Orders: Discharge ED (Routine); Ordered 09/01/20 Ordered By: Oscar Jurado Referrals: Geni Espinosa APN [Primary Care Provider] - Mitul Reddy MD [Physician] - 1-3 days Discharge Diet: Advance as tolerated Discharge Activity: Resume usual activity Patient Instructions: Chronic Diarrhea (ED), Abdominal Pain (ED) Coding Level of Care Code ED Chemical Processor for Chg Fwd Exam Comprehensive
[2020-09-01] MEDS: diphenoxylate/atropine Tablet 2 TAB PO (21:39)
[2020-09-01] MEDS: sodium chloride 0.9% 1,000 ML 999 ML IV (21:39)
[2020-09-01] MEDS: iohexol 300 mg/mL 100 mL Btl IV (21:44)
[2020-09-01 21:46] LABS: Basophils # 0.1 10^3/uL (0.0-0.1); Basophils % 0.9 %; Eosinophils # 0.3 10^3/uL (0.0-0.8); Eosinophils % 1.8 %; Hematocrit 45.3 % (42.0-52.0); Hemoglobin 15.1 g/dL (11.7-16.6); Lymphocytes # 5.9 10^3/uL (0.8-4.8); Lymphocytes % 38.9 %; Mean Corpuscular HGB Conc 33.3 g/dL (30.0-36.0); Mean Corpuscular Hemoglobin 31.2 pg (28.0-34.0); Mean Corpuscular Volume 93.6 fL (80-94); Mean Platelet Volume 11.1 fL (7.4-10.4); Monocytes # 1.9 10^3/uL (0.2-0.9); Monocytes % 12.6 %; Neutrophils # 6.89 10^3/uL (1.8-7.7); Neutrophils % 45.4 %; Nucleated Red Blood Cells % 0 %; Platelet Count 526 10^3/cmm (130-400); Red Blood Count 4.84 10^6/uL (4.1-5.3); Red Cell Distribution Width 14.6 % (12.1-15.1); White Blood Count 15.1 10^3/uL (4.0-10.0)
[2020-09-01 22:01] LABS: Alanine Aminotransferase 33 U/L (0-41); Albumin Level 4.3 g/dL (3.5-5.2); Alkaline Phosphatase 101 IU/L (40-130); Anion Gap 13.1 (5-19); Aspartate Amino Transferase 21 U/L (0-40); Blood Urea Nitrogen 10 mg/dL (6-20); Calcium 8.9 mg/dL (8.5-10.5); Carbon Dioxide 24 mmol/L (22-29); Chloride 106 mmol/L (98-107); Globulin 2.7 g/dL (1.3-4.6); Glomerular Filtration Rate 159.3 mL/min (90-130); Glucose 90 mg/dL (65-115); Lipase 37 U/L (13-60); Osmolality Calculated 287 mOsm/kg (285-295); Potassium 4.1 mmol/L (3.5-5.1); Sodium 139 mmol/L (136-145); Total Bilirubin 0.3 mg/dL (0.15-1.2)
[2020-09-01 22:21] VITALS: BP 122/88; PULSE 76; RESP 16; O2SAT 94
== END 2020-09-01 22:25 | disposition home or self-care (01) ==
PROVIDERS: Emergency Provider Emergency Medicine; PCP Nurse Practitioner Family
DX: R10.9 Unspecified abdominal pain (principal); R19.7 Diarrhea, unspecified; Z79.82 Long term (current) use of aspirin; Z87.442 Personal history of urinary calculi; Z77.22 Contact with and (suspected) exposure to environmental tobacco smoke (acute) (chronic)
CPT/HCPCS: 74177; 80053; 83690; 85025; 96360; 99283; J7030; Q9967

== ENCOUNTER → 2020-09-06 11:02 | Outpatient (BNVA) | payer MEDICARE, MEDICAID, SELFPAY | PROVIDERS: PCP Nurse Practitioner Family; Visit Provider Surgery | DX: R10.9 Unspecified abdominal pain (principal); Z20.822 Contact with and (suspected) exposure to COVID-19 | CPT/HCPCS: 87635; 99211 ==

== ENCOUNTER → 2020-10-04 08:42 | Outpatient (BNVA) | payer MEDICARE, MEDICAID, SELFPAY | PROVIDERS: PCP Nurse Practitioner Family; Visit Provider Anesthesiology | DX: M47.26 Other spondylosis with radiculopathy, lumbar region (principal); M51.17 Intervertebral disc disorders with radiculopathy, lumbosacral region; M51.26 Other intervertebral disc displacement, lumbar region; S32.010D Wedge compression fracture of first lumbar vertebra, subsequent encounter for fracture with routine healing; X58.XXXD Exposure to other specified factors, subsequent encounter; Z79.891 Long term (current) use of opiate analgesic | CPT/HCPCS: 99213 ==

== ENCOUNTER → 2020-10-31 07:19 | Outpatient (BNVA) | payer MEDICARE, MEDICAID, SELFPAY | PROVIDERS: PCP Nurse Practitioner Family; Visit Provider Nurse Practitioner | DX: F41.1 Generalized anxiety disorder (principal); F90.0 Attention-deficit hyperactivity disorder, predominantly inattentive type; F31.9 Bipolar disorder, unspecified | CPT/HCPCS: 99214 ==

== ENCOUNTER → 2020-11-16 10:49 | Outpatient (BNVA) | payer MEDICARE, MEDICAID, SELFPAY | PROVIDERS: PCP Nurse Practitioner Family; Visit Provider Anesthesiology | DX: M54.41 Lumbago with sciatica, right side (principal); M47.26 Other spondylosis with radiculopathy, lumbar region; M51.34 Other intervertebral disc degeneration, thoracic region; M51.26 Other intervertebral disc displacement, lumbar region; S32.010D Wedge compression fracture of first lumbar vertebra, subsequent encounter for fracture with routine healing; X58.XXXD Exposure to other specified factors, subsequent encounter; Z79.891 Long term (current) use of opiate analgesic | CPT/HCPCS: 87635; 99213 ==

== ENCOUNTER 2020-11-20 06:27 | Day surgery (SDC) | payer MEDICARE, MEDICAID, SELFPAY ==
[2020-11-20 06:47] VITALS: BP 143/102; PULSE 81; RESP 18; TEMP 36.3; O2SAT 95
--- NOTE | 2020-11-20 06:50 | W.PM.OPSFHP ---
Same Day Surgery H&P Indication for Procedure/HPI DATE OF PROCEDURE: November 20, 2020 CHIEF COMPLAINT/INDICATIONFOR SURGICAL PROCEDURE: EGD/colon PREOP DIAGNOSIS: panendoscopy PLANNED PROCEDRUE: Operation Date: 10/19/20 12:00 Proposed Procedures p EGD/colon 87433 88206 R10.9(Not Applicable) - Mitul Reddy MD s Colonoscopy(Not Applicable) - Mitul Reddy MD Operation Date: 11/20/20 07:30 Proposed Procedures p EGD 38518 38560 r10.9(Not Applicable) - Mitul Reddy MD s Colonoscopy(Not Applicable) - Mitul Reddy MD Medications/Allergies* Home Medications Medication Instructions Recorded Confirmed Type melatonin 5 mg capsule 10 mg PO BEDTIME@2200 cap 05/26/19 11/20/20 History propranolol 10 mg tablet 10 mg PO BEDTIME@2200 tab 05/26/19 11/20/20 History albuterol sulfate 90 mcg/actuation 2 puff INHALATION Q6H PRN 06/08/19 11/20/20 History aerosol inhaler budesonide-formoterol HFA 160 2 puff INHALATION BID@1000,2200 02/18/20 11/20/20 History mcg-4.5 mcg/actuation aerosol inhaler erenumab-aooe 140 mg/mL 140 mg SUBCUT Q30D ml 03/17/20 11/20/20 History subcutaneous auto-injector pantoprazole 20 mg tablet,delayed 40 mg PO DAILY@1000 tab 08/29/20 11/20/20 History release alcaftadine [Lastacaft] See Rx Instructions .ROUTE .COMPLEX 09/01/20 11/20/20 History cetirizine 10 mg PO DAILY@1000 09/01/20 11/20/20 History cholecalciferol (vitamin D3) 50,000 unit PO Q7D 09/01/20 11/20/20 History diphenhydramine HCl [Benadryl] 50 mg PO Q6H PRN 09/01/20 11/20/20 History fluticasone propionate 2 spray INTRANASAL DAILY@1000 09/01/20 11/20/20 History tamsulosin 0.4 mg PO DAILY@1000 09/01/20 11/20/20 History mupirocin calcium 1 applic TOPICAL TID PRN 11/16/20 11/20/20 History Allergies/Adverse Reactions Allergy/AdvReac Type Severity Reaction Status Date / Time aripiprazole [From Abilify] Allergy Severe anaphylaxsi Verified 11/16/20 11:13 s insect venom Allergy Severe respiratory Verified 11/16/20 11:13 distress Milk Containing Products Allergy Severe diahrrea Verified 11/16/20 11:13 peanut Allergy Severe anaphylaxsis, Verified 11/16/20 11:13 hives adhesive tape Allergy Mild rash Verified 11/16/20 11:13 morphine Allergy Mild itching Verified 11/16/20 11:13 procaine [From Novocain] Allergy brain Verified 11/16/20 11:13 becomes foggy divalproex sodium AdvReac Mild confusion Verified 11/16/20 11:13 [From Depakote] latex AdvReac Mild rash, edema Verified 11/16/20 11:13 Pertinent History/Comorbid Conditions* Medical History (Updated 11/04/20 @ 09:38 by Anibal Weathers MD) Anxiety Asthma Attention-deficit hyperactivity disorder, predominantly inattentive type Bipolar disorder, unspecified Calculus of kidney Compression fracture of L1 vertebra with routine healing Displacement of lumbar intervertebral disc Frequent headaches Generalized anxiety disorder GERD (gastroesophageal reflux disease) Idiopathic thrombocytopenic purpura (ITP) 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, lumbar region Thoracic degenerative disc disease Urinary hesitancy Surgical History (Updated 08/29/20 @ 11:56 by Mitul Reddy MD) H/O esophagogastroduodenoscopy History of hernia repair History of splenectomy Hx of tonsillectomy Status post colonoscopy Family History (Updated 05/26/19 @ 12:50 by Faith Coleman LPN) Diabetes Mother Cancer Mother Family/Other UNCLE Denies family history of Anesthesia complication Bleeding disorder Social History Smoking and tobacco status: never smoked Second hand smoke exposure: Yes Alcohol intake: never Household members: family Marital status: Single Number of children: 0 Current occupational status: disabled History of recent travel: No Pertinent Exam Findings alert, oriented x 3 and regular rate & rhythm Recommendations Surgery/Procedure today Coding Level of Care Code Acute 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
[2020-11-20] MEDS: sodium chloride 0.9% 1,000 ML 30 ML IV (06:59)
[2020-11-20 07:01] LABS: Glucose Point of Care 93 mg/dL (70-110)
--- NOTE | 2020-11-20 07:10 | P.ANESASSM_ITS ---
Pre-Anesthetic Assessment Pre-Anesthetic Assessment: Height/Weight: Height 1.65 m Weight 123.831 kg Temp Pulse Resp BP Pulse Ox 97.4 F L 81 18 143/102 95 11/20/20 06:47 11/20/20 06:47 11/20/20 06:47 11/20/20 06:47 11/20/20 06:47 Preop Diagnosis: panendoscopy Proposed Procedure: Operation Date: 10/19/20 12:00 Proposed Procedures p EGD/colon 37653 98408 R10.9(Not Applicable) - Mitul Reddy MD s Colonoscopy(Not Applicable) - Mitul Reddy MD Operation Date: 11/20/20 07:30 Proposed Procedures p EGD 01809 14555 r10.9(Not Applicable) - Mitul Reddy MD s Colonoscopy(Not Applicable) - Mitul Reddy MD Familial anesthetic complications: long wake up Was Beta Ashanti taken within 24 hours: N/A Was Clonidine taken within 24 hours: N/A Last intake: Intake Last Liquid Date 11/19/20 Last Liquid Time 23:30 Last Solid Date 11/17/20 Last Solid Time 00:00 Social: Social History: No alcohol and No tobacco Exam: Pre-Anes Outpt Exam: alert, oriented x 3, clear to auscultation bilaterally and regular rate & rhythm Airway: Submandibular: WNL Cervical ROM: WNL MP: 2 Dentition: Full History/ROS: Other Pulmonary: Pulmonary: Asthma, DRISCOLL and Sleep apnea CV/HEM: CV/HEM: Arrythmia : : None reported GI: GI: GERD Metabolic: Metabolic: DM and Morbid obesity Musc/skel: Musc/skel: Lower Back Pain Neuropsych: Neuropsych: Anxiety, Bipolar, Depression and MCGREGOR Anesthetic Plan: ASA status: 2 Anesthesia: MAC Risk of > 500 ml blood loss (7ml/kg in children): No Meds/Allergies 2 Current Medications: Current Medications Generic Name Dose Route Start Last Admin Trade Name Freq PRN Reason Stop Dose Admin Sodium Chloride 1,000 mls @ 30 ml s/hr 11/20/20 06:45 11/20/20 06:59 Sodium Chloride 0.9% IV 11/21/20 06:44 30 mls/hr .Q24H YADIRA Administration PFSH Anesthesia PFSH: Medical History Anxiety Asthma Attention-deficit hyperactivity disorder, predominantly inattentive type Bipolar disorder, unspecified Calculus of kidney Compression fracture of L1 vertebra with routine healing Displacement of lumbar intervertebral disc Frequent headaches Generalized anxiety disorder GERD (gastroesophageal reflux disease) Idiopathic thrombocytopenic purpura (ITP) 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, lumbar region Thoracic degenerative disc disease Urinary hesitancy Surgical History H/O esophagogastroduodenoscopy History of hernia repair History of splenectomy Hx of tonsillectomy Status post colonoscopy Family History Mother Cancer Diabetes Family/Other Cancer UNCLE Denies family history of Anesthesia complication Bleeding disorder Social History (Updated 11/16/20 @ 11:14 by Magda Dozier LPN) Smoking and tobacco status: never smoked Second hand smoke exposure: Yes Alcohol intake: never Household members: family Marital status: Single Number of children: 0 Current occupational status: disabled History of recent travel: No Data Anesthesia Other Labs: Laboratory Results - last 48 hr 11/20/20 06:58 POC Glucose 93 Cardiac Studies: No Data to Display
--- NOTE | 2020-11-20 07:51 | ANE.PACU2 ---
Inpatient post-anesthesia follow up: Airway intact: Yes Vital signs: Temperature 97.4 F Pulse Rate 81 Respiratory Rate 18 Blood Pressure 143/102 Pulse Oximetry 95 Oxygen Delivery Me thod Room Air Oxygen Flow Rate Fraction of Inspir ed Oxygen Hydration adequate: Yes Nausea and vomiting: No Pain level: 1 Mental status: Baseline
[2020-11-20 07:54] VITALS: BP 114/78; PULSE 92; RESP 16; TEMP 36.4; O2SAT 95
[2020-11-20 08:05] VITALS: BP 115/78; PULSE 90; RESP 16; TEMP 36.6; O2SAT 96
== END 2020-11-20 08:20 | disposition home or self-care (01) ==
PROVIDERS: PCP Nurse Practitioner Family; Visit Provider Surgery
PROC: 0DJ08ZZ Inspection of Upper Intestinal Tract, Via Natural or Artificial Opening Endoscopic (ICD-10-PCS; CPT 43235; principal; 2020-11-20 07:30)
PROC: 0DJD8ZZ Inspection of Lower Intestinal Tract, Via Natural or Artificial Opening Endoscopic (ICD-10-PCS; CPT 45378; 2020-11-20 07:30)
DX: K52.9 Noninfective gastroenteritis and colitis, unspecified (principal); R10.9 Unspecified abdominal pain; K29.70 Gastritis, unspecified, without bleeding; K21.9 Gastro-esophageal reflux disease without esophagitis; E11.9 Type 2 diabetes mellitus without complications; E66.01 Morbid (severe) obesity due to excess calories; Z68.42 Body mass index [BMI] 45.0-49.9, adult; F41.9 Anxiety disorder, unspecified; J45.909 Unspecified asthma, uncomplicated
CPT/HCPCS: 36416; 43239; 45380; 82274; 82962; 83630; 87493; 87506; 88305; 96360; J2704; J7030

== ENCOUNTER → 2020-11-27 14:31 | Outpatient (BNVA) | payer MEDICARE, MEDICAID, SELFPAY | PROVIDERS: PCP Nurse Practitioner Family; Visit Provider Nurse Practitioner | DX: F90.0 Attention-deficit hyperactivity disorder, predominantly inattentive type (principal); F41.1 Generalized anxiety disorder; F31.9 Bipolar disorder, unspecified; Z02.83 Encounter for blood-alcohol and blood-drug test | CPT/HCPCS: 80306; 99214 ==

== ENCOUNTER → 2020-12-04 13:52 | Outpatient (BNVA) | payer MEDICARE, MEDICAID, SELFPAY | PROVIDERS: PCP Nurse Practitioner Family; Visit Provider Nurse Practitioner Family | DX: J02.9 Acute pharyngitis, unspecified (principal); E55.9 Vitamin D deficiency, unspecified; R73.01 Impaired fasting glucose; Z13.6 Encounter for screening for cardiovascular disorders; K21.9 Gastro-esophageal reflux disease without esophagitis; Z79.899 Other long term (current) drug therapy | CPT/HCPCS: 80053; 80061; 82306; 82607; 83036; 84443; 85025; 87071; 87880 ==

== ENCOUNTER → 2020-12-25 14:47 | Outpatient (BNVA) | payer MEDICARE, MEDICAID, SELFPAY | PROVIDERS: PCP Nurse Practitioner Family; Visit Provider Nurse Practitioner | DX: F90.0 Attention-deficit hyperactivity disorder, predominantly inattentive type (principal); F41.1 Generalized anxiety disorder; F31.9 Bipolar disorder, unspecified; Z02.83 Encounter for blood-alcohol and blood-drug test | CPT/HCPCS: 99214 ==

== ENCOUNTER → 2020-12-26 16:39 | Outpatient (BNVA) | payer MEDICARE, MEDICAID, SELFPAY | PROVIDERS: PCP Nurse Practitioner Family; Visit Provider Orthopaedic Surgery | DX: M54.5 Low back pain (principal) | CPT/HCPCS: 72110; 80053; 85025 ==

== ENCOUNTER 2021-01-09 06:00 | Outpatient (RCR) | payer MEDICARE, MEDICAID, SELFPAY | END 2021-02-04 23:59 | disposition home or self-care (01) | LOC: TPT 06:00 | PROVIDERS: PCP Nurse Practitioner Family; Referring Provider Orthopaedic Surgery; Visit Provider Orthopaedic Surgery | DX: M54.50 Low back pain, unspecified (principal) | CPT/HCPCS: 97110; 97163; 97530 ==

== ENCOUNTER → 2021-01-24 17:21 | Outpatient (BNVA) | payer MEDICARE, MEDICAID, SELFPAY | PROVIDERS: PCP Nurse Practitioner Family; Visit Provider Nurse Practitioner Family | DX: E53.8 Deficiency of other specified B group vitamins (principal); R19.7 Diarrhea, unspecified; E55.9 Vitamin D deficiency, unspecified | CPT/HCPCS: 82306; 82607; 86592; 87806 ==

== ENCOUNTER → 2021-01-30 15:04 | Outpatient (BNVA) | payer MEDICARE, MEDICAID, SELFPAY | PROVIDERS: PCP Nurse Practitioner Family; Visit Provider Nurse Practitioner | DX: F90.0 Attention-deficit hyperactivity disorder, predominantly inattentive type (principal); F41.1 Generalized anxiety disorder; F31.9 Bipolar disorder, unspecified; Z02.83 Encounter for blood-alcohol and blood-drug test | CPT/HCPCS: 99214 ==

== ENCOUNTER → 2021-01-31 09:24 | Outpatient (BNVA) | payer MEDICARE, MEDICAID, SELFPAY | PROVIDERS: PCP Nurse Practitioner Family; Visit Provider Nurse Practitioner Family | DX: R39.11 Hesitancy of micturition (principal); R79.89 Other specified abnormal findings of blood chemistry; R19.7 Diarrhea, unspecified | CPT/HCPCS: 81000; 82274; 86705; 86706; 86709; 86803; 87340; 87491; 87493; 87506; 87591 ==

== ENCOUNTER → 2021-02-07 16:56 | Outpatient (BNVA) | payer MEDICARE, MEDICAID, SELFPAY | PROVIDERS: PCP Nurse Practitioner Family; Visit Provider Nurse Practitioner Family | DX: J02.9 Acute pharyngitis, unspecified (principal); Z20.822 Contact with and (suspected) exposure to COVID-19 | CPT/HCPCS: 87071; 87635; 87880 ==

== ENCOUNTER 2021-02-12 17:04 | Emergency (ER) | payer MEDICARE, MEDICAID, SELFPAY ==
[2021-02-12 17:47] VITALS: BP 131/83; PULSE 101; RESP 18; TEMP 36.8; O2SAT 96; BMI 44.9
--- NOTE | 2021-02-12 21:00 | XRR_ITS ---
PROCEDURE INFORMATION: Exam: XR Chest Exam date and time: 02/12/2021 9:00 PM Age: 30 years old Clinical indication: Cough TECHNIQUE: Imaging protocol: XR of the chest. Views: 1 view. COMPARISON: CR XR chest 1V portable [id number] 08/12/2019 4:26 PM FINDINGS: The lungs are clear of infiltrate. There are no pleural effusions or pneumothorax. The heart size and pulmonary vascularity are normal. XR/XR chest 1V portable [id number] IMPRESSION: No active disease. Radiation Dose CTDIVOL = (mGy): DLP = (mGy-cm)
--- NOTE | 2021-02-12 21:01 | ED_ITS ---
HPI - Nausea/Vomiting/Diarrhea General: Chief complaint: Nausea/Vomiting/Diarrhea Stated complaint: Vomiting & Coughing, unable to stop urinating Time Seen by Provider: 02/12/21 20:55 Source: patient Mode of arrival: ambulatory Limitations: no limitations History of Present Illness: HPI Narrative: 30-year-old male states that over the last day has been having nausea vomiting states that everything that he is eating or drinking he has been vomiting is not able to keep anything down. States he is also had a cough over the same time denies any shortness of breath denies any fever denies any pain anywhere. Denies any diarrhea. Associated nausea: Yes Associated symtoms: Reports nausea; Denies chest pain, dysuria or headache(s) Review of Systems Const: Denies: fever(s), chills, body aches or change in appetite Eyes: Denies: blurry vision or eye discomfort ENMT: Denies: throat pain or dental pain Card: Denies: chest pain Resp: Reports: non-productive cough GI: Reports: nausea : Denies: dysuria Musc: Denies: neck pain or back pain Skin/Breast: Denies: rash Neuro: Denies: headache(s) Psych: Denies: depression Thaddeus/Lymph: Denies: easy bruising All/Imm: Denies: urticaria PFSH ED PFSH: Medical History Anxiety Asthma Attention-deficit hyperactivity disorder, predominantly inattentive type Bipolar disorder, unspecified Calculus of kidney Compression fracture of L1 vertebra with routine healing Displacement of lumbar intervertebral disc Frequent headaches Generalized anxiety disorder GERD (gastroesophageal reflux disease) Idiopathic thrombocytopenic purpura (ITP) 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, lumbar region Psychiatric care Thoracic degenerative disc disease Urinary hesitancy Surgical History H/O esophagogastroduodenoscopy (11/20/20) History of hernia repair History of splenectomy Hx of tonsillectomy Status post colonoscopy (11/20/20) Family History Mother Cancer Diabetes Family/Other Cancer UNCLE Denies family history of Anesthesia complication Bleeding disorder Social History Smoking and tobacco status: never smoked Second hand smoke exposure: Yes Alcohol intake: never Caregiver/support person: Yes Lives independently: No Household members: family Marital status: Single Number of children: 0 service: No Current occupational status: disabled History of recent travel: No Current gender identity: Male Special law needs: No Physical Exam Const: COMMON NORMALS: no acute distress, patient oriented x3 and healthy appearing HENMT: COMMON NORMALS: normocephalic and atraumatic HEAD & SCALP: normocephalic and atraumatic Eye: COMMON NORMALS: Equal, round and reactive pupils present and EOMs intact bilaterally PUPIL: Yes Equal, round and reactive pupils present Neck/C-Spine: COMMON NORMALS: full ROM and supple Chest: COMMONS NORMALS: normal inspection of the chest and normal palpation of entire chest wall Resp: COMMON NORMALS: normal respiratory effort, No retractions, No use of accessory muscles and clear to auscultation bilaterally AUSCULTATION: clear to auscultation bilaterally Cardio: COMMON NORMALS: regular rate, regular rhythm and No murmurs present (Cardio) RATE: regular rate RHYTHM: regular rhythm GI: COMMON NORMALS: Normal to inspection, nondistended, normoactive bowel meka nds present, Soft to palpation, non-tender and no masses PALPATION: Yes Soft to palpation Extremity: COMMON NORMALS: normal to inspection and full ROM Neuro: COMMON NORMALS: patient oriented x3, moves all extremities and no focal motor deficits Psych: COMMON NORMALS: mental status grossly normal, Normal thought process present and cooperative THOUGHT PROCESS: Normal thought process present Skin: COMMON NORMALS: no rashes or lesions noted and no wounds GENERAL SKIN EXAM: no rashes or lesions noted Course Vital Signs: Vital signs: Vital Signs Temperature 98.2 F 02/12/21 17:47 Pulse Rate 98 02/12/21 22:15 Respiratory Rate 16 02/12/21 22:15 Blood Pressure 125/83 02/12/21 22:15 Pulse Oximetry 97 02/12/21 22:15 MDM - Nausea/Vomiting/Diarrhea MDM Narrative: Medical decision making narrative: 30-year-old male presented here wit vomiting likely viral in origin he is well-appearing here CT scan is normal he does have an elevated white count looking back his white count only slightly elevated but is likely elevated today due to stress reaction he has no signs of any serious illness get CT of his abdomen is normal he is follow-up his PCP have his white count rechecked will prescribe Zofran for home he feels improved here. Lab Data: Labs: Lab Results 02/12/21 02/12/21 02/12/21 21:20 21:20 21:20 WBC 23.6 10^3/uL H 10 ^3/uL (4.0-10.0) RBC 5.07 10^6/uL 10^6 /uL (4.1-5.3) Hgb 15.7 g/dL g/dL (11.7-16.6) Hct 45.0 % % (42.0-52.0) MCV 88.8 fl fl (80-94) MCH 31.0 pg pg (28.0-34.0) MCHC 34.9 g/dL g/dL (30.0-36.0) RDW 14.0 % % (12.1-15.1) Plt Count 641 10^3/cmm H 10 ^3/cmm (130-400) MPV 11.2 fL H fL (7.4-10.4) Neut % (Auto) 61.7 % % Lymph % (Auto) 29.0 % % [place] % (Auto) 7.7 % % Eos % (Auto) 0.6 % % Baso % (Auto) 0.5 % % Neut # (Auto) 14.58 10^3/uL H 1 0^3/uL (1.8-7.7) Lymph # (Auto) 6.9 10^3/uL H 10^ 3/uL (0.8-4.8) [place] # (Auto) 1.8 10^3/uL H 10^ 3/uL (0.2-0.9) Eos # (Auto) 0.2 10^3/uL 10^3/ uL (0.0-0.8) Baso # (Auto) 0.1 10^3/uL 10^3/ uL (0.0-0.1) Nucleated RBC % (a uto) 0 % % Nucleated RBCs # 0.0 /100WBC /100W BC Sodium 139 mmol/L mmol/L (136-145) Potassium 3.7 mmol/L mmol/L (3.5-5.1) Chloride 102 mmol/L mmol/L (98-107) Carbon Dioxide 24 mmol/L mmol/L (22-29) Anion Gap 16.7 (5-19) BUN 8 mg/dL mg/dL (6-20) Creatinine 0.6 mg/dL L mg/dL (0.7-1.2) GFR Calculation 159.3 mL/min H mL /min (90-130) Glucose 87 mg/dL mg/dL (65-115) Calculated Osmolal ity 286 mOsm/kg mOsm/ kg (285-295) Calcium 9.5 mg/dL mg/dL (8.5-10.5) Total Bilirubin 0.4 mg/dL mg/dL (0.15-1.2) AST 31 U/L U/L (0-40) ALT 51 U/L H U/L (0-41) Alkaline Phosphata se 116 IU/L IU/L (40-130) Total Protein 7.8 g/dL g/dL (6.6-8.7) Albumin 4.5 g/dL g/dL (3.5-5.2) Globulin 3.3 g/dL g/dL (1.3-4.6) Lipase 38 U/L U/L (13-60) Urine Color Urine Appearance Urine pH Ur Specific Gravit y Urine Protein Urine Glucose (UA) Urine Ketones Urine Blood Urine Nitrate Urine Bilirubin Urine Urobilinogen Ur Leukocyte Anjelica ase Urine RBC Urine WBC Ur Squamous Epith Cells Amorphous Sediment Urine Bacteria Urine Mucus SARS-CoV-2 Ag (Rap id) Negative (Negative) 02/12/21 21:20 WBC RBC Hgb Hct MCV MCH MCHC RDW Plt Count MPV Neut % (Auto) Lymph % (Auto) [place] % (Auto) Eos % (Auto) Baso % (Auto) Neut # (Auto) Lymph # (Auto) [place] # (Auto) Eos # (Auto) Baso # (Auto) Nucleated RBC % (a uto) Nucleated RBCs # Sodium Potassium Chloride Carbon Dioxide Anion Gap BUN Creatinine GFR Calculation Glucose Calculated Osmolal ity Calcium Total Bilirubin AST ALT Alkaline Phosphata se Total Protein Albumin Globulin Lipase Urine Color Dark yellow (Yellow) Urine Appearance Clear (CLEAR) Urine pH 5 (5-7) Ur Specific Gravit y 1.030 (1.005-1.030) Urine Protein Trace (Negative) Urine Glucose (UA) Norm (Normal) Urine Ketones 1+ H (Negative) Urine Blood Neg (Negative) Urine Nitrate Negative (Negative) Urine Bilirubin 1+ H (Negative) Urine Urobilinogen Norm mg/dL mg/dL (Negative) Ur Leukocyte Anjelica ase Negative (Negative) Urine RBC None /hpf /hpf (0-2) Urine WBC None /hpf /hpf (0-5) Ur Squamous Epith Cells None /hpf /hpf (0-5) Amorphous Sediment Not Reportable Urine Bacteria None /hpf /hpf (NONE) Urine Mucus 3+ /hpf /hpf SARS-CoV-2 Ag (Rap id) Imaging Data^: CT Abd/Pel: Attestation: I personally reviewed and interpreted this imaging study as follows: Radiologist's impression: [id number] [address] [address] Scan Report Signed Patient: Willi Meadows Unit #: [id number] : 1990 Age/Sex: 30 / M ADM Date: 02/12/21 Loc: ER Room/Bed: Attending Dr: Ordering Provider/Ordering MD: Oscar Jurado MD Date of Service: 02/12/21 Procedure(s): CT abdomen pelvis w con* [id number] Accession Number(s): [id number] Report Number: [id number] PROCEDURE INFORMATION: Exam: CT Abdomen And Pelvis With Contrast Exam date and time: 02/12/2021 10:13 PM Age: 30 years old Clinical indication: Nausea and vomiting and other: Diarrhea; Abdominal pain; Epigastric; Prior surgery; Surgery type: Spleenectomy, hernia x 2; Additional info: Abd pain TECHNIQUE: Imaging protocol: Computed tomography of the abdomen and pelvis with contrast. Radiation optimization: All CT scans at this facility use at least one of these dose optimization techniques: automated exposure control; mA and/or kV adjustment per patient size (includes targeted exams where dose is matched to clinical indication); or iterative reconstruction. Contrast material: OMNI 350; Contrast volume: 95 ml; Contrast route: INTRAVENOUS (IV); COMPARISON: CT abdomen pelvis w con* [id number] 09/01/2020 9:41 PM RADIATION DOSE METRICS: Total DLP (mGy-cm): 1925.21 FINDINGS: The lung bases are clear. The there is an old compression fracture of L1. There is no liver mass. There is no intrahepatic biliary dilatation. A gallstone is seen within the gallbladder. The pancreas is unremarkable. The patient is status post splenectomy. There is no adrenal mass. There is no hydronephrosis. There are no renal calculi. There is no perinephric stranding. There is no renal mass. The aorta is normal in caliber. The IVC is normal in caliber. There is no retroperitoneal adenopathy. There are some small lymph nodes within the mesentery in the right lower quadrant. The stomach is unremarkable. The small bowel loops in the upper abdomen are nondistended with no bowel wall thickening. The colonic structures within the upper abdomen are normal in caliber with no bowel wall thickening. Within the pelvis: A normal appendix is seen within the right lower quadrant. The bladder is unremarkable. The prostate gland and seminal vesicles are normal. There is no free fluid within the pelvis. There is no inguinal adenopathy. There is no pelvic adenopathy. The rectosigmoid colon is decompressed. CT/CT abdomen pelvis w con* [id number] IMPRESSION: 1. A gallstone is seen within the gallbladder. 2. Normal appendix. 3. The no evidence for bowel obstruction or bowel wall thickening. Radiation Dose CTDIVOL = (mGy): DLP = 1925.21 (mGy-cm) Dictated By: Mauricio Ayers MD Signed By: Mauricio Ayers MD Signed Date/Time: 02/12/212241 DD/ 12 Discharge Plan Discharge Patient Disposition: Home Clinical Impression: Diarrhea, Vomiting Condition: Stable Prescriptions: New ondansetron 4 mg tablet,disintegrating 4 mg PO Q6H PRN (Reason: nausea and vomiting) Qty: 14 RF: 0 No Action albuterol sulfate [Ventolin HFA] 90 mcg/actuation HFA aerosol inhaler 2 puff INHALATION Q6H PRN (Reason: Shortness Of Breath) RF: 0 Aimovig Autoinjector 140 mg/mL auto-injector 140 mg SUBCUT Q30D RF: 0 cholecalciferol (vitamin D3) 125 mcg (5,000 unit) capsule 125 mcg PO DAILY Qty: 30 RF: 2 atorvastatin 10 mg tablet 10 mg PO DAILY Qty: 30 RF: 2 atomoxetine 40 mg capsule 40 mg PO BID@1000,2200 Qty: 60 RF: 1 eszopiclone [Lunesta] 3 mg tablet 3 mg PO BEDTIME@2200 Qty: 30 RF: 1 lamotrigine [Lamictal] 200 mg tablet 200 mg PO DAILY Qty: 30 RF: 1 lurasidone 120 mg tablet 120 mg PO DAILY@1000 Qty: 30 RF: 1 dextroamphetamine-amphetamine [Adderall XR] 20 mg capsule,extended release 24hr 20 mg PO DAILY 30 Days Qty: 30 RF: 0 triamcinolone acetonide 0.1 % lotion 1 applic topical BID 14 Days Qty: 60 RF: 0 ketoconazole 2 % shampoo 1 applic topical .twice a week 56 Days Qty: 120 RF: 2 ergocalciferol (vitamin D2) 1,250 mcg (50,000 unit) capsule 1,250 mcg PO .WEEKLY Qty: 4 RF: 2 tramadol 50 mg tablet 50 mg PO QID PRN (Reason: pain) 30 Days Qty: 120 RF: 0 gabapentin 400 mg capsule 400 mg PO BID@1000,2200 30 Days Qty: 60 RF: 0 cyanocobalamin (vitamin B-12) 1,000 mcg/mL solution See Rx Instructions .ROUTE .COMPLEX Qty: 4 RF: 0 montelukast 10 mg tablet 10 mg PO DAILY Qty: 10 RF: 0 Lastacaft 0.25 % drops See Rx Instructions .ROUTE .COMPLEX RF: 0 fluticasone propionate 50 mcg/actuation spray,suspension 2 spray INTRANASAL DAILY@1000 RF: 0 mupirocin calcium 2 % cream 1 applic TOPICAL TID PRN (Reason: Itching) RF: 0 Discharge Orders: Discharge ED (Routine); Ordered 02/12/21 Ordered By: Oscar Jurado Referrals: Jana Mcbride FNP [Primary Care Provider] - 4-7 days Discharge Diet: Advance as tolerated Discharge Activity: Resume usual activity Patient Instructions: Acute Nausea and Vomiting (ED) Coding Level of Care Code ED Learning Disabled Teacher for Chg Fwd Exam Comprehensive
[2021-02-12] MEDS: sodium chloride 0.9% 1,000 ML 999 ML IV (21:29)
[2021-02-12] MEDS: diphenhydrAMINE 50 mg/mL SDV 1mL IVP (21:29)
[2021-02-12] MEDS: metoclopramide 5 mg/mL SDV 2 mL 10 MG IVP (21:29)
[2021-02-12 21:31] LABS: Basophils % 0.5 %; Hemoglobin 15.7 g/dL (11.7-16.6); Monocytes % 7.7 %; Nucleated Red Blood Cells % 0 %
[2021-02-12 21:34] LABS: Basophils # 0.1 10^3/uL (0.0-0.1); Eosinophils # 0.2 10^3/uL (0.0-0.8); Eosinophils % 0.6 %; Lymphocytes # 6.9 10^3/uL (0.8-4.8); Mean Corpuscular HGB Conc 34.9 g/dL (30.0-36.0); Mean Corpuscular Volume 88.8 fl (80-94); Mean Platelet Volume 11.2 fL (7.4-10.4); Monocytes # 1.8 10^3/uL (0.2-0.9); Neutrophils # 14.58 10^3/uL (1.8-7.7); Neutrophils % 61.7 %; Platelet Count 641 10^3/cmm (130-400); Red Blood Count 5.07 10^6/uL (4.1-5.3); White Blood Count 23.6 10^3/uL (4.0-10.0)
[2021-02-12 21:46] LABS: Add Urine Microscopic? YES; Bilirubin Urine 1+ (Negative); Blood Urine Neg (Negative); Glucose Urine UA Norm (Normal); Ketones Urine 1+ (Negative); Leukocyte Esterase Urine Negative (Negative); Nitrate Urine Negative (Negative); Protein Urine Trace (Negative); Urine Appearance Clear (CLEAR); Urine Color Dark Yellow (Yellow); Urobilinogen Urine Norm (Negative); pH Urine 5 (5-7)
[2021-02-12 21:48] LABS: Add Urine Culture? No; Mucus Urine 3+ /hpf
[2021-02-12 21:52] LABS: Alanine Aminotransferase 51 U/L (0-41); Albumin Level 4.5 g/dL (3.5-5.2); Alkaline Phosphatase 116 IU/L (40-130); Anion Gap 16.7 (5-19); Aspartate Amino Transferase 31 U/L (0-40); Blood Urea Nitrogen 8 mg/dL (6-20); Calcium 9.5 mg/dL (8.5-10.5); Carbon Dioxide 24 mmol/L (22-29); Chloride 102 mmol/L (98-107); Globulin 3.3 g/dL (1.3-4.6); Glomerular Filtration Rate 159.3 mL/min (90-130); Glucose 87 mg/dL (65-115); Lipase 38 U/L (13-60); Osmolality Calculated 286 mOsm/kg (285-295); Potassium 3.7 mmol/L (3.5-5.1); Sodium 139 mmol/L (136-145); Total Bilirubin 0.4 mg/dL (0.15-1.2); Total Protein 7.8 g/dL (6.6-8.7)
[2021-02-12 22:00] LABS: SARS Covid-2 Antigen Negative (Negative)
[2021-02-12 22:10] LABS: Slide Review Slide Review Perform
--- NOTE | 2021-02-12 22:13 | CTR_ITS ---
PROCEDURE INFORMATION: Exam: CT Abdomen And Pelvis With Contrast Exam date and time: 02/12/2021 10:13 PM Age: 30 years old Clinical indication: Nausea and vomiting and other: Diarrhea; Abdominal pain; Epigastric; Prior surgery; Surgery type: Spleenectomy, hernia x 2; Additional info: Abd pain TECHNIQUE: Imaging protocol: Computed tomography of the abdomen and pelvis with contrast. Radiation optimization: All CT scans at this facility use at least one of these dose optimization techniques: automated exposure control; mA and/or kV adjustment per patient size (includes targeted exams where dose is matched to clinical indication); or iterative reconstruction. Contrast material: OMNI 350; Contrast volume: 95 ml; Contrast route: INTRAVENOUS (IV); COMPARISON: CT abdomen pelvis w con* [id number] 09/01/2020 9:41 PM RADIATION DOSE METRICS: Total DLP (mGy-cm): 1925.21 FINDINGS: The lung bases are clear. The there is an old compression fracture of L1. There is no liver mass. There is no intrahepatic biliary dilatation. A gallstone is seen within the gallbladder. The pancreas is unremarkable. The patient is status post splenectomy. There is no adrenal mass. There is no hydronephrosis. There are no renal calculi. There is no perinephric stranding. There is no renal mass. The aorta is normal in caliber. The IVC is normal in caliber. There is no retroperitoneal adenopathy. There are some small lymph nodes within the mesentery in the right lower quadrant. The stomach is unremarkable. The small bowel loops in the upper abdomen are nondistended with no bowel wall thickening. The colonic structures within the upper abdomen are normal in caliber with no bowel wall thickening. Within the pelvis: A normal appendix is seen within the right lower quadrant. The bladder is unremarkable. The prostate gland and seminal vesicles are normal. There is no free fluid within the pelvis. There is no inguinal adenopathy. There is no pelvic adenopathy. The rectosigmoid colon is decompressed. CT/CT abdomen pelvis w con* [id number] IMPRESSION: 1. A gallstone is seen within the gallbladder. 2. Normal appendix. 3. The no evidence for bowel obstruction or bowel wall thickening. Radiation Dose CTDIVOL = (mGy): DLP = 1925.21 (mGy-cm)
[2021-02-12 22:15] VITALS: BP 125/83; PULSE 98; RESP 16; O2SAT 97
[2021-02-12] MEDS: iohexol 350 mg/mL 100 mL Btl IV (22:22)
== END 2021-02-12 22:57 | disposition home or self-care (01) ==
PROVIDERS: Emergency Provider Emergency Medicine; PCP Nurse Practitioner Family
DX: R19.7 Diarrhea, unspecified (principal); R11.10 Vomiting, unspecified; Z79.891 Long term (current) use of opiate analgesic; F41.1 Generalized anxiety disorder; F90.0 Attention-deficit hyperactivity disorder, predominantly inattentive type; M51.34 Other intervertebral disc degeneration, thoracic region
CPT/HCPCS: 71045; 74177; 80053; 81001; 83690; 85025; 87426; 96361; 96374; 96375; 99283; J1200; J2765; J7030; Q9967

== ENCOUNTER → 2021-03-20 17:00 | Outpatient (BNVA) | payer MEDICARE, MEDICAID, SELFPAY | PROVIDERS: PCP Nurse Practitioner Family; Visit Provider Nurse Practitioner Family | DX: E78.5 Hyperlipidemia, unspecified (principal); R73.01 Impaired fasting glucose; L02.413 Cutaneous abscess of right upper limb | CPT/HCPCS: 80061; 83036; 87070 ==

== ENCOUNTER → 2021-04-03 07:27 | Outpatient (BNVA) | payer MEDICARE, MEDICAID, SELFPAY | PROVIDERS: PCP Nurse Practitioner Family; Visit Provider Nurse Practitioner | DX: F41.1 Generalized anxiety disorder (principal); F31.9 Bipolar disorder, unspecified; Z02.83 Encounter for blood-alcohol and blood-drug test; F90.0 Attention-deficit hyperactivity disorder, predominantly inattentive type | CPT/HCPCS: 99214 ==

== ENCOUNTER → 2021-06-11 11:30 | Outpatient (BNVA) | payer MEDICARE, MEDICAID, SELFPAY | PROVIDERS: PCP Nurse Practitioner Family; Visit Provider Nurse Practitioner Family | DX: K58.9 Irritable bowel syndrome, unspecified (principal); G62.9 Polyneuropathy, unspecified; E87.5 Hyperkalemia; E78.5 Hyperlipidemia, unspecified; R73.9 Hyperglycemia, unspecified; E66.9 Obesity, unspecified; R79.89 Other specified abnormal findings of blood chemistry | CPT/HCPCS: 80053; 80061; 83036 ==

== ENCOUNTER 2021-07-04 22:35 | Emergency (ER) | payer MEDICARE, MEDICAID, SELFPAY ==
[2021-07-04 22:42] VITALS: BP 148/79; PULSE 88; RESP 16; TEMP 36.7; O2SAT 93; BMI 44.1
--- NOTE | 2021-07-04 22:57 | ED_ITS ---
HPI - Nausea/Vomiting/Diarrhea General: Chief complaint: Nausea/Vomiting/Diarrhea Stated complaint: Diarrhea Time Seen by Provider: 07/04/21 22:38 History of Present Illness: Patient states that she had diarrhea since year 2013 been worse since 2017 when he moved here and is been worse over the last year and especially the last few weeks he is having more frequent bowel movements. Has been treated multiple times for this through primary care. No medication seems to work. Patient does have a lot of anxiety and takes quite a bit medication. Associated nausea: No Associated symtoms: Denies chest pain, headache(s) or nausea Review of Systems Const: Denies: fever(s), chills or body aches Eyes: Denies: eye discomfort ENMT: Denies: throat pain Card: Denies: chest pain Resp: Denies: dyspnea GI: Reports: diarrhea (Becoming more frequently last few weeks. 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, lumbar region Psychiatric care Thoracic degenerative disc disease Urinary hesitancy Surgical History H/O esophagogastroduodenoscopy (11/20/20) History of hernia repair History of splenectomy Hx of tonsillectomy Status post colonoscopy (11/20/20) Family History Mother Cancer Diabetes Family/Other Cancer UNCLE Denies family history of Anesthesia complication Bleeding disorder Social History Smoking and tobacco status: never smoked Second hand smoke exposure: Yes Alcohol intake: never Caregiver/support person: Yes Lives independently: No Household members: family Marital status: Single Number of children: 0 service: No Current occupational status: disabled History of recent travel: No Current gender identity: Male Special law needs: No Physical Exam Const: COMMON NORMALS: no acute distress, patient oriented x3 and alert HENMT: COMMON NORMALS: normocephalic and external ears normal HEAD & SCALP: normocephalic EXTERNAL EAR: Yes external ears normal Eye: COMMON NORMALS: EOMs intact bilaterally Neck/C-Spine: COMMON NORMALS: no JVD Resp: COMMON NORMALS: normal respiratory effort and No use of accessory muscles Cardio: COMMON NORMALS: no JVD GI: INSPECTION: Yes normal to inspection Extremity: COMMON NORMALS: normal to inspection and full ROM Neuro: COMMON NORMALS: patient oriented x3 SENSORIUM/ORIENTATION: Yes alert Psych: COMMON NORMALS: mental status grossly normal Skin: COMMON NORMALS: no rashes or lesions noted GENERAL SKIN EXAM: no rashes or lesions noted Course Vital Signs: Vital signs: Vital Signs Temperature 98.1 F 07/04/21 23:05 Pulse Rate 87 07/04/21 23:05 Respiratory Rate 16 07/04/21 23:05 Blood Pressure 145/71 07/04/21 23:05 Pulse Oximetry 95 07/04/21 23:05 MDM - Nausea/Vomiting/Diarrhea Medical Decision Making Patient presents with chronic diarrhea that is been present since 2012 worse since 2016 and then worse the last few weeks. Patient not follow-up primary care provider patient encouraged to see primary care provider Discharge Plan Discharge Patient Disposition: Home Clinical Impression: Chronic diarrhea Condition: Stable Prescriptions: New Lomotil 2.5-0.025 mg tablet 1 tab PO QID PRN (Reason: diarrhea) Qty: 14 0RF No Action atomoxetine 40 mg capsule 40 mg PO BID@1000,2200 Qty: 60 1RF lurasidone 120 mg tablet 120 mg PO DAILY@1000 Qty: 30 1RF lamotrigine [Lamictal] 200 mg tablet 200 mg PO DAILY Qty: 30 1RF eszopiclone [Lunesta] 3 mg tablet 3 mg PO BEDTIME@2200 Qty: 30 1RF dextroamphetamine-amphetamine [Adderall XR] 20 mg capsule,extended release 24hr 20 mg PO DAILY 30 Days Qty: 30 0RF dicyclomine 20 mg tablet 40 mg PO QID Qty: 240 0RF Aimovig Autoinjector 140 mg/mL auto-injector 140 mg SUBCUT Q30D Qty: 1 6RF Rx Instructions: TAKE MONTHLY ON THE 18 albuterol sulfate [Ventolin HFA] 90 mcg/actuation HFA aerosol inhaler 2 puff INHALATION Q6H PRN (Reason: Shortness Of Breath) 0RF cholecalciferol (vitamin D3) 125 mcg (5,000 unit) capsule 125 mcg PO DAILY Qty: 30 2RF triamcinolone acetonide 0.1 % lotion 1 applic topical BID 14 Days Qty: 60 0RF ketoconazole 2 % shampoo 1 applic topical .twice a week 56 Days Qty: 120 2RF clotrimazole-betamethasone 1-0.05 % cream 1 applic topical BID 14 Days Qty: 45 0RF fluticasone propionate 50 mcg/actuation spray,suspension 2 spray INTRANASAL DAILY Qty: 16 5RF erythromycin 5 mg/gram (0.5 %) ointment 0.5 inch ophthalmic (eye) BID Qty: 1 1RF dicyclomine 10 mg capsule 10 mg PO BID 30 Days Qty: 60 2RF gabapentin 400 mg capsule 400 mg PO BID@1000,2200 30 Days Qty: 60 3RF cyanocobalamin (vitamin B-12) 1,000 mcg/mL solution See Rx Instructions .ROUTE .COMPLEX Qty: 4 0RF Dose Instruction: inject 1ML INTRAMUSCULARLY WEEKLY Rx Instructions: inject 1ML INTRAMUSCULARLY WEEKLY montelukast 10 mg tablet 10 mg PO DAILY Qty: 30 5RF ergocalciferol (vitamin D2) 1,250 mcg (50,000 unit) capsule See Rx Instructions .ROUTE .COMPLEX Qty: 4 2RF Dose Instruction: TAKE ONE CAPSULE BY MOUTH WEEKLY Rx Instructions: TAKE ONE CAPSULE BY MOUTH WEEKLY atorvastatin 10 mg tablet See Rx Instructions .ROUTE .COMPLEX Qty: 30 2RF Dose Instruction: TAKE ONE TABLET BY MOUTH EVERY DAY Rx Instructions: TAKE ONE TABLET BY MOUTH EVERY DAY emtricitabine-tenofovir (TDF) 200-300 mg tablet See Rx Instructions .ROUTE .COMPLEX Qty: 30 2RF Dose Instruction: TAKE ONE TABLET BY MOUTH EVERY DAY Rx Instructions: TAKE ONE TABLET BY MOUTH EVERY DAY Lastacaft 0.25 % drops See Rx Instructions .ROUTE .COMPLEX 0RF Rx Instructions: USE DIRECTED BID AT 1000,2200 mupirocin calcium 2 % cream 1 applic TOPICAL TID PRN (Reason: Itching) 0RF Discharge Orders: Discharge ED (Routine); Ordered 07/04/21 Ordered By: Marino Solis Referrals: Jana Mcbride FNP [Primary Care Provider] - Discharge Diet: Usual diet Discharge Activity: Resume usual activity Patient Instructions: Irritable Bowel Syndrome (ED) Activity Restrictions/Additional Instructions: Follow-up with medical provider as directed. Take medications as prescribed. Return to the ER or your medical provider if condition worsens. Please read and understand discharge instructions. If any questions ask please. Hospital will contact you with appointment for Dr. Kruger's office Coding Level of Care Code ED Dietary Server for Travis Fwd Exam Comprehensive
[2021-07-04] MEDS: diphenoxylate/atropine Tablet 2 TAB PO (23:04)
[2021-07-04 23:05] VITALS: BP 145/71; PULSE 87; RESP 16; TEMP 36.7; O2SAT 95
--- NOTE | 2021-07-05 11:01 | DCPLANNER ---
Addendum entered by Bree Vigil 08/08/21 21:36: Patient had a follow up appointment scheduled with Dr. Kruger at [facility] - patient did not attend appointment. Addendum entered by Bree Vigil 07/10/21 09:04: Patient has an appointment scheduled for Friday, August 01, [address] at 9:[address] Kruger. Clinic will call patient with appointment information. Original Note: catalogue and special products manager had message to schedule a follow up appointment for patient with Dr. Teixeira office. catalogue and special products manager sent patients information to the [facility] front office thru workload. Patients information will be printed and reviewed. Clinic will call patient with appointment information.
== END 2021-07-04 23:07 | disposition home or self-care (01) ==
PROVIDERS: Emergency Provider Nurse Practitioner Family; PCP Nurse Practitioner Family
DX: K52.9 Noninfective gastroenteritis and colitis, unspecified (principal); Z90.81 Acquired absence of spleen; F41.9 Anxiety disorder, unspecified; K21.9 Gastro-esophageal reflux disease without esophagitis
CPT/HCPCS: 99283

== ENCOUNTER → 2021-07-27 13:44 | Outpatient (BNVA) | payer MEDICARE, MEDICAID, SELFPAY | PROVIDERS: PCP Nurse Practitioner Family; Visit Provider Nurse Practitioner | DX: F31.9 Bipolar disorder, unspecified (principal); F41.1 Generalized anxiety disorder; F90.0 Attention-deficit hyperactivity disorder, predominantly inattentive type | CPT/HCPCS: 99214 ==

== ENCOUNTER 2022-05-12 15:00 | Emergency (ER) | payer MEDICARE, MEDICAID, SELFPAY ==
[2022-05-12 15:08] VITALS: BP 122/76; PULSE 107; RESP 16; TEMP 36.2; O2SAT 95; BMI 39.4
[2022-05-12] MEDS: sodium chloride 0.9% 1,000 ML 999 ML IV (15:51)
--- NOTE | 2022-05-12 15:51 | ED_ITS ---
HPI - Nausea/Vomiting/Diarrhea General: Chief complaint: Nausea/Vomiting/Diarrhea Stated complaint: diarrhea Time Seen by Provider: 05/12/22 15:09 Source: patient Mode of arrival: ambulatory Limitations: no limitations History of Present Illness: This 32-year-old male presents to the ER with chronic vomiting and diarrhea. He has had this for over 3 years and has been evaluated by the keypunch operator who performed colonoscopy and upper GI endoscopies with no clear etiology found. Patient has no fever, chest pain or shortness of breath. He presents to the ER today stating that the diarrhea is like a waterfall . This waterfall type diarrhea has been going on for months now. He also complains of some epigastric discomfort. Patient is afebrile and clinically stable. Associated symtoms: Denies chest pain, dysuria or headache(s) Review of Systems Const: Denies: chills, body aches or change in appetite Card: Denies: chest pain or lightheadedness GI: Reports: diarrhea : Denies: dysuria Musc: Denies: neck pain or back pain Neuro: Denies: headache(s) or weakness in extremities Psych: Denies: depression Thaddeus/Lymph: Denies: easy bruising All/Imm: Denies: urticaria, tongue swelling or facial swelling PFSH ED PFSH: Medical History Anxiety Asthma Attention-deficit hyperactivity disorder, predominantly inattentive type Bipolar disorder, unspecified Calculus of kidney Compression fracture of L1 vertebra with routine healing Displacement of lumbar intervertebral disc Frequent headaches Generalized anxiety disorder GERD (gastroesophageal reflux disease) Idiopathic thrombocytopenic purpura (ITP) 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, lumbar region Psychiatric care Thoracic degenerative disc disease Urinary hesitancy Surgical History H/O esophagogastroduodenoscopy (11/20/20) History of hernia repair History of splenectomy Hx of tonsillectomy Status post colonoscopy (11/20/20) Family History Mother Cancer Diabetes Family/Other Cancer UNCLE Denies family history of Anesthesia complication Bleeding disorder Social History (Reviewed 05/10/22 @ 11:38 by LEIF Darden Smoking and tobacco status: never smoked Second hand smoke exposure: Yes Alcohol intake: never Caregiver/support person: Yes Lives independently: No Household members: family Marital status: Single Number of children: 0 service: No Current occupational status: disabled History of recent travel: No Current gender identity: Male Special law needs: No Physical Exam Const: COMMON NORMALS: no acute distress, patient oriented x3, no limitations and alert Chest: COMMONS NORMALS: normal inspection of the chest Resp: COMMON NORMALS: normal respiratory effort, No retractions, No use of accessory muscles and clear to auscultation bilaterally AUSCULTATION: clear to auscultation bilaterally Cardio: COMMON NORMALS: regular rate, regular rhythm and No murmurs present (C ardio) RATE: regular rate RHYTHM: regular rhythm GI: COMMON NORMALS: Normal to inspection, nondistended, normoactive bowel sounds present OTHER: Abdomen is soft. Minimal epigastric discomfort. Normal bowel sounds. : COMMON NORMALS: Yes no CVA tenderness BLADDER/KIDNEY EXAM: Yes no CVA tenderness Back/Pelvis: COMMON NORMALS: no CVA tenderness and no thoracic nor lumbar tenderness Extremity: GENERAL: Yes normal exam except as noted Neuro: COMMON NORMALS: patient oriented x3 and no focal motor deficits SENSORIUM/ORIENTATION: Yes alert Psych: COMMON NORMALS: mental status grossly normal and cooperative Course Vital Signs: Vital signs: Vital Signs Temperature 97.1 F L 05/12/22 15:08 Pulse Rate 107 H 05/12/22 15:08 Respiratory Rate 16 05/12/22 15:08 Blood Pressure 122/76 05/12/22 15:08 Pulse Oximetry 95 05/12/22 15:08 Oxygen Delivery Me thod 05/12/22 15:08 MDM - Nausea/Vomiting/Diarrhea Medical Decision Making Medical decision making: Patient has chronic diarrhea that has been extensively worked up with no significant findings. Review of his medical records shows that he has irritable bowel syndrome though patient states he is not aware of this. CBC and CMP are unremarkable. Patient has no fever, chest pain, shortness of br eath or any other systemic symptoms of concern. He will be treated symptomatically with Imodium. Return instructions provided. Lab Data 05/12/22 15:47 05/12/22 15:45 Laboratory Results WBC 12.5 10^3/uL (4.0-10.0) H 05/12/22 15:47 RBC 4.97 10^6/uL (4.1-5.3) 05/12/22 15:47 Hgb 14.9 g/dL (11.7-16.6) 05/12/22 15:47 Hct 44.7 % (42.0-52.0) 05/12/22 15:47 MCV 89.9 fl (80-94) 05/12/22 15:47 MCH 30.0 pg (28.0-34.0) 05/12/22 15:47 MCHC 33.3 g/dL (30.0-36.0) 05/12/22 15:47 RDW 14.6 % (12.1-15.1) 05/12/22 15:47 Plt Count 616 10^3/cmm (130-400) H 05/12/22 15:47 MPV 11.4 fL (7.4-10.4) H 05/12/22 15:47 Neut % (Auto) 45.0 % 05/12/22 15:47 Lymph % (Auto) 45.0 % 05/12/22 15:47 [place] % (Auto) 7.5 % 05/12/22 15:47 Eos % (Auto) 1.4 % 05/12/22 15:47 Baso % (Auto) 0.9 % 05/12/22 15:47 Neut # (Auto) 5.63 10^3/uL (1.8-7.7) 05/12/22 15:47 Lymph # (Auto) 5.6 10^3/uL (0.8-4.8) H 05/12/22 15:47 [place] # (Auto) 0.9 10^3/uL (0.2-0.9) 05/12/22 15:47 Eos # (Auto) 0.2 10^3/uL (0.0-0.8) 05/12/22 15:47 Baso # (Auto) 0.1 10^3/uL (0.0-0.1) 05/12/22 15:47 Nucleated RBC % (auto) 0 % 05/12/22 15:47 Nucleated RBCs # 0.0 /100WBC 05/12/22 15:47 Sodium 138 mmol/L (136-145) 05/12/22 15:45 Potassium 4.0 mmol/L (3.5-5.1) 05/12/22 15:45 Chloride 102 mmol/L (98-107) 05/12/22 15:45 Carbon Dioxide 26 mmol/L (22-29) 05/12/22 15:45 Anion Gap 14.0 (5-19) 05/12/22 15:45 BUN 9 mg/dL (6-20) 05/12/22 15:45 Creatinine 0.7 mg/dL (0.7-1.2) 05/12/22 15:45 GFR Calculation 131.5 mL/min (90-130) H 05/12/22 15:45 Glucose 143 mg/dL (65-115) H 05/12/22 15:45 Calculated Osmolality 287 mOsm/kg (285-295) 05/12/22 15:45 Calcium 8.7 mg/dL (8.5-10.5) 05/12/22 15:45 Total Bilirubin 0.3 mg/dL (0.15-1.2) 05/12/22 15:45 AST 26 U/L (0-40) 05/12/22 15:45 ALT 31 U/L (0-41) 05/12/22 15:45 Alkaline Phosphatase 101 U/L (40-130) 05/12/22 15:45 Total Protein 7.7 g/dL (6.6-8.7) 05/12/22 15:45 Albumin 4.7 g/dL (3.5-5.2) 05/12/22 15:45 Globulin 3.0 g/dL (1.3-4.6) 05/12/22 15:45 Lipase 22 U/L (13-60) 05/12/22 15:45 Discharge Plan Discharge Patient Disposition: Home Clinical Impression: Chronic diarrhea Condition: Stable Prescriptions: New Imodium A-D 2 mg tablet 2 mg PO Q6H PRN (Reason: loose stool) Qty: 30 0RF No Action Aimovig Autoinjector 140 mg/mL auto-injector 140 mg SUBCUT Q30D Qty: 1 6RF Rx Instructions: TAKE MONTHLY ON THE 18 albuterol sulfate [Ventolin HFA] 90 mcg/actuation HFA aerosol inhaler 2 puff INHALATION Q6H PRN (Reason: Shortness Of Breath) cholecalciferol (vitamin D3) 125 mcg (5,000 unit) capsule 125 mcg PO DAILY Qty: 30 2RF triamcinolone acetonide 0.1 % lotion 1 applic topical BID 14 Days Qty: 60 0RF ketoconazole 2 % shampoo 1 applic topical .twice a week 56 Days Qty: 120 2RF clotrimazole-betamethasone 1-0.05 % cream 1 applic topical BID 14 Days Qty: 45 0RF fluticasone propionate 50 mcg/actuation spray,suspension 2 spray INTRANASAL DAILY Qty: 16 5RF erythromycin 5 mg/gram (0.5 %) ointment 0.5 inch ophthalmic (eye) BID Qty: 1 1RF gabapentin 400 mg capsule 400 mg PO BID@1000,2200 30 Days Qty: 60 3RF clindamycin HCl 300 mg capsule 300 mg PO TID 10 Days Qty: 30 0RF tramadol 50 mg tablet 50 mg PO Q6H PRN (Reason: pain) Qty: 20 0RF clindamycin HCl 300 mg capsule 300 mg PO TID Qty: 21 3RF hydroxyzine pamoate [Vistaril] 25 mg capsule 25 mg PO TID PRN (Reason: itching) Qty: 90 2RF sertraline 25 mg tablet 25 mg PO DAILY Qty: 30 5RF cyanocobalamin (vitamin B-12) 1,000 mcg/mL solution See Rx Instructions .ROUTE .COMPLEX Qty: 4 0RF Dose Instruction: inject 1ML INTRAMUSCULARLY WEEKLY Rx Instructions: inject 1ML INTRAMUSCULARLY WEEKLY emtricitabine-tenofovir (TDF) 200-300 mg tablet See Rx Instructions .ROUTE .COMPLEX Qty: 30 2RF Dose Instruction: TAKE ONE TABLET BY MOUTH EVERY DAY Rx Instructions: TAKE ONE TABLET BY MOUTH EVERY DAY eszopiclone [Lunesta] 3 mg tablet 3 mg PO BEDTIME@2200 Qty: 30 0RF dextroamphetamine-amphetamine [Adderall XR] 20 mg capsule,extended release 24hr 20 mg PO DAILY 30 Days Qty: 30 0RF ergocalciferol (vitamin D2) 1,250 mcg (50,000 unit) capsule See Rx Instructions .ROUTE .COMPLEX Qty: 4 2RF Dose Instruction: TAKE ONE CAPSULE BY MOUTH WEEKLY Rx Instructions: TAKE ONE CAPSULE BY MOUTH WEEKLY montelukast 10 mg tablet See Rx Instructions .ROUTE .COMPLEX Qty: 30 5RF Dose Instruction: TAKE ONE TABLET BY MOUTH EVERY DAY Rx Instructions: TAKE ONE TABLET BY MOUTH EVERY DAY atomoxetine 40 mg capsule 40 mg PO BID@1000,2200 Qty: 60 1RF lamotrigine [Lamictal] 200 mg tablet 200 mg PO DAILY Qty: 30 1RF lurasidone 120 mg tablet 120 mg PO DAILY@1000 Qty: 30 1RF atorvastatin 10 mg tablet See Rx Instructions .ROUTE .COMPLEX Qty: 30 2RF Dose Instruction: TAKE ONE TABLET BY MOUTH EVERY DAY Rx Instructions: TAKE ONE TABLET BY MOUTH EVERY DAY Lastacaft 0.25 % drops See Rx Instructions .ROUTE .COMPLEX Rx Instructions: USE DIRECTED BID AT 1000,2200 mupirocin calcium 2 % cream 1 applic TOPICAL TID PRN (Reason: Itching) Lomotil 2.5-0.025 mg tablet 1 tab PO QID PRN (Reason: diarrhea) Qty: 14 0RF Discharge Orders: Discharge ED (Routine); Ordered 05/12/22 Ordered By: Boris Abrams Referrals: [facility] [Primary Care Provider] - Discharge Diet: Usual diet Discharge Activity: Resume usual activity Patient Instructions: Opioid Safety, Pain Management Activity Restrictions/Additional Instructions: Take Imodium as needed for diarrhea. Maintain adequate fluid intake. Follow-up with your primary care physician within a week for reevaluation. Return with new or worsening symptoms. Coding Level of Care Code ED [employer] Admissions Representative for [facility] [employer] Exam Comprehensive
[2022-05-12 16:05] LABS: Basophils # 0.1 10^3/uL (0.0-0.1); Basophils % 0.9 %; Eosinophils # 0.2 10^3/uL (0.0-0.8); Eosinophils % 1.4 %; Hematocrit 44.7 % (42.0-52.0); Hemoglobin 14.9 g/dL (11.7-16.6); Lymphocytes # 5.6 10^3/uL (0.8-4.8); Mean Corpuscular HGB Conc 33.3 g/dL (30.0-36.0); Mean Corpuscular Volume 89.9 fl (80-94); Mean Platelet Volume 11.4 fL (7.4-10.4); Monocytes # 0.9 10^3/uL (0.2-0.9); Monocytes % 7.5 %; Neutrophils # 5.63 10^3/uL (1.8-7.7); Nucleated Red Blood Cells % 0 %; Platelet Count 616 10^3/cmm (130-400); Red Blood Count 4.97 10^6/uL (4.1-5.3); Red Cell Distribution Width 14.6 % (12.1-15.1); White Blood Count 12.5 10^3/uL (4.0-10.0)
[2022-05-12 16:21] LABS: Alanine Aminotransferase 31 U/L (0-41); Albumin Level 4.7 g/dL (3.5-5.2); Alkaline Phosphatase 101 U/L (40-130); Aspartate Amino Transferase 26 U/L (0-40); Blood Urea Nitrogen 9 mg/dL (6-20); Calcium 8.7 mg/dL (8.5-10.5); Carbon Dioxide 26 mmol/L (22-29); Chloride 102 mmol/L (98-107); Glomerular Filtration Rate 131.5 mL/min (90-130); Glucose 143 mg/dL (65-115); Lipase 22 U/L (13-60); Osmolality Calculated 287 mOsm/kg (285-295); Sodium 138 mmol/L (136-145); Total Bilirubin 0.3 mg/dL (0.15-1.2); Total Protein 7.7 g/dL (6.6-8.7)
[2022-05-12 16:29] LABS: Slide Review Slide Review Perform
[2022-05-12 17:52] VITALS: BP 134/72; PULSE 77; RESP 16; O2SAT 98
== END 2022-05-12 18:21 | disposition home or self-care (01) ==
PROVIDERS: Emergency Provider Family Medicine
DX: K52.9 Noninfective gastroenteritis and colitis, unspecified (principal); Z77.22 Contact with and (suspected) exposure to environmental tobacco smoke (acute) (chronic)
CPT/HCPCS: 80053; 83690; 85025; 99284; J7030

== ENCOUNTER 2022-05-25 15:58 | Emergency (ER) | payer MEDICARE, MEDICAID, SELFPAY ==
[2022-05-25 16:05] VITALS: BP 121/89; PULSE 118; RESP 18; TEMP 36.6; O2SAT 95
[2022-05-25] MEDS: ketorolac 60 mg/2 mL INJ IM (16:41)
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
[2022-05-25 16:57] VITALS: BP 121/89; PULSE 118; RESP 18; TEMP 36.6; O2SAT 95
== END 2022-05-25 17:00 | disposition home or self-care (01) ==
PROVIDERS: Emergency Provider Nurse Practitioner; PCP Pediatrics
DX: K02.9 Dental caries, unspecified (principal); H92.01 Otalgia, right ear; K52.9 Noninfective gastroenteritis and colitis, unspecified; H61.21 Impacted cerumen, right ear; Z77.22 Contact with and (suspected) exposure to environmental tobacco smoke (acute) (chronic)
CPT/HCPCS: 96372; 99283; J1885

== ENCOUNTER → 2022-06-10 17:08 | Outpatient (BNVA) | payer MEDICARE, MEDICAID, SELFPAY | PROVIDERS: PCP Pediatrics; Visit Provider Nurse Practitioner Family | DX: G62.9 Polyneuropathy, unspecified (principal); J45.20 Mild intermittent asthma, uncomplicated; J30.89 Other allergic rhinitis; Z91.89 Other specified personal risk factors, not elsewhere classified; E55.9 Vitamin D deficiency, unspecified; R73.9 Hyperglycemia, unspecified; E78.5 Hyperlipidemia, unspecified; R53.83 Other fatigue; R39.11 Hesitancy of micturition; K58.9 Irritable bowel syndrome, unspecified; Z11.3 Encounter for screening for infections with a predominantly sexual mode of transmission; Z91.010 Allergy to peanuts; E53.8 Deficiency of other specified B group vitamins; R19.7 Diarrhea, unspecified | CPT/HCPCS: 80053; 81000; 82306; 82607; 83036; 84146; 84153; 84403; 84443; 85025; 86003; 86592; 87491; 87591; 87806 ==

== ENCOUNTER 2022-06-11 18:04 | Outpatient (CLI) | payer MEDICARE, MEDICAID, SELFPAY | END 2022-06-11 18:05 | disposition home or self-care (01) | PROVIDERS: PCP Nurse Practitioner Family; Visit Provider Nurse Practitioner Family | DX: K58.9 Irritable bowel syndrome, unspecified (principal); R19.7 Diarrhea, unspecified | CPT/HCPCS: 83630; 87493; 87506 ==

== ENCOUNTER 2022-06-11 22:36 | Emergency (ER) | payer MEDICARE, MEDICAID, SELFPAY ==
[2022-06-11 22:42] VITALS: BP 138/91; PULSE 113; RESP 18; TEMP 36.4; O2SAT 95; BMI 41.2
--- NOTE | 2022-06-11 23:17 | W.ED.GENADLT ---
HPI - General Adult General: Chief complaint: General Medical Stated complaint: right side of face pain, MCGREGOR Time Seen by Provider: 06/11/22 23:15 History of Present Illness: 32-year-old male patient comes in with mouth pain. Patient reports upper right-sided jaw pain. Patient does have a long history of dental problems and infection. Patient is unable to get into a dentist at this time. Patient appears nontoxic. Patient appears in mild to moderate pain. Associated symptoms: Deny chest pain, dyspnea, nausea, rash or vomiting Review of Systems General: Reports: 10 or more systems reviewed and unremarkable except in HPI and below Const: Reports: fever(s) Eyes: Denies: change in vision ENMT: Reports: dental pain Card: Denies: chest pain Resp: Denies: dyspnea GI: Denies: nausea or vomiting Skin/Breast: Denies: rash PFSH ED PFSH: Medical History Anxiety Asthma Attention-deficit hyperactivity disorder, predominantly inattentive type Bipolar disorder, unspecified Calculus of kidney Compression fracture of L1 vertebra with routine healing Displacement of lumbar intervertebral disc Frequent headaches Generalized anxiety disorder GERD (gastroesophageal reflux disease) Idiopathic thrombocytopenic purpura (ITP) 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, lumbar region Psychiatric care Thoracic degenerative disc disease Urinary hesitancy Surgical History H/O esophagogastroduodenoscopy (11/20/20) History of hernia repair History of splenectomy Hx of tonsillectomy Status post colonoscopy (11/20/20) Family History Mother Cancer Diabetes Family/Other Cancer UNCLE Denies family history of Anesthesia complication Bleeding disorder Social History Smoking and tobacco status: never smoked Second hand smoke exposure: Yes Alcohol intake: never Caregiver/support person: Yes Lives independently: No Household members: family Marital status: Single Number of children: 0 service: No Current occupational status: disabled Current gender identity: Male Special law needs: No Physical Exam Const: COMMON NORMALS: alert HENMT: COMMON NORMALS: normocephalic and TM's normal bilaterally HEAD & SCALP: normocephalic TYMPANIC MEMBRANE: TM's normal bilaterally MOUTH: other (Poor dentition, receding gum lines, decay of teeth at the gingiva) THROAT: posterior oropharynx normal Neck/C-Spine: COMMON NORMALS: full ROM Resp: COMMON NORMALS: normal respiratory effort Cardio: COMMON NORMALS: regular rate and regular rhythm RATE: regular rate RHYTHM: regular rhythm Extremity: COMMON NORMALS: normal to inspection Neuro: SENSORIUM/ORIENTATION: Yes alert Skin: COMMON NORMALS: turgor normal GENERAL SKIN EXAM: turgor normal Course Vital Signs: Vital signs: Vital Signs Temperature 97.6 F 06/11/22 22:42 Pulse Rate 113 H 06/11/22 22:42 Respiratory Rate 18 06/11/22 22:42 Blood Pressure 138/91 06/11/22 22:42 Pulse Oximetry 95 06/11/22 22:42 Oxygen Delivery Me thod 06/11/22 22:42 MDM - General Adult Medical Decision Making Patient comes in today with dental pain. On exam patient has poor dentition with decay at the gumline. No obvious facial swelling. Bilateral TMs are clear. No significant swelling is noted. Differential diagnosis includes not limited to gingivitis, dental abscess, Karl's angina. No sign of serious illness or injury is noted. Reviewed exam with patient with recommendations for treatment for dental infection and need for follow-up with dentist for further treatment. A list of local dental clinics was given to patient. Discharge Plan Discharge Patient Disposition: Home Clinical Impression: Periodontitis, Pain, dental Condition: Stable Prescriptions: New doxycycline monohydrate 100 mg capsule 100 mg PO BID 10 Days Qty: 20 0RF tramadol 50 mg tablet 50 mg PO BID PRN (Reason: pain (scale score 7-10)) Qty: 7 0RF No Action clindamycin HCl 300 mg capsule 300 mg PO TID Qty: 21 3RF hydroxyzine pamoate [Vistaril] 25 mg capsule 25 mg PO TID PRN (Reason: itching) Qty: 90 2RF sertraline 25 mg tablet 25 mg PO DAILY Qty: 30 5RF gabapentin 400 mg capsule 400 mg PO BID@1000,2200 30 Days Qty: 60 2RF montelukast 10 mg tablet See Rx Instructions .ROUTE .COMPLEX Qty: 30 2RF Dose Instruction: TAKE ONE TABLET BY MOUTH EVERY DAY Rx Instructions: TAKE ONE TABLET BY MOUTH EVERY DAY albuterol sulfate [Ventolin HFA] 90 mcg/actuation HFA aerosol inhaler 2 puff INHALATION Q6H PRN (Reason: Shortness Of Breath) Qty: 8.5 2RF budesonide-formoterol [Symbicort] 160-4.5 mcg/actuation HFA aerosol inhaler 2 puff inhalation BID Qty: 10.2 2RF fluticasone propionate 50 mcg/actuation spray,suspension 2 spray INTRANASAL DAILY Qty: 16 2RF emtricitabine-tenofovir (TDF) 200-300 mg tablet See Rx Instructions .ROUTE .COMPLEX Qty: 30 2RF Dose Instruction: TAKE ONE TABLET BY MOUTH EVERY DAY Rx Instructions: TAKE ONE TABLET BY MOUTH EVERY DAY Lastacaft 0.25 % drops See Rx Instructions .ROUTE .COMPLEX Rx Instructions: USE DIRECTED BID AT 1000,2200 Imodium A-D 2 mg tablet 2 mg PO Q6H PRN (Reason: loose stool) Qty: 30 0RF Periogard 0.12 % mouthwash 15 ml buccal BID Qty: 473 0RF Discharge Orders: Discharge ED (Routine); Ordered 06/11/22 Ordered By: Jose C Mancera Referrals: Jana Mcbride FNP [Primary Care Provider] - Discharge Diet: Usual diet Discharge Activity: Increase activity as tolerated Patient Instructions: Gingivostomatitis (ED) Activity Restrictions/Additional Instructions: Good oral care. Take antibiotic as directed. Follow-up with primary care for further instructions. Follow-up with dentist for definitive care. Coding Level of Care Code ED Otorhinolaryngologist for Travis Landrum
[2022-06-11] MEDS: doxycycline 100 mg Tablet PO (23:52)
[2022-06-11] MEDS: TRAMadol 50 mg Tablet PO (23:52)
[2022-06-12 00:01] VITALS: BP 165/94; PULSE 104; RESP 16; O2SAT 99
== END 2022-06-12 00:02 | disposition home or self-care (01) ==
PROVIDERS: Emergency Provider Nurse Practitioner Family; PCP Nurse Practitioner Family
DX: K05.30 Chronic periodontitis, unspecified (principal); Z77.22 Contact with and (suspected) exposure to environmental tobacco smoke (acute) (chronic)
CPT/HCPCS: 99283

== ENCOUNTER → 2023-08-13 10:53 | Outpatient (BNVA) | payer MEDICAID, SELFPAY | PROVIDERS: PCP Nurse Practitioner Family; Visit Provider Nurse Practitioner Family | DX: J45.20 Mild intermittent asthma, uncomplicated (principal); J30.89 Other allergic rhinitis; F31.9 Bipolar disorder, unspecified; K58.9 Irritable bowel syndrome, unspecified; E55.9 Vitamin D deficiency, unspecified; F41.9 Anxiety disorder, unspecified; E66.01 Morbid (severe) obesity due to excess calories; R79.89 Other specified abnormal findings of blood chemistry; E53.8 Deficiency of other specified B group vitamins; F41.1 Generalized anxiety disorder; E78.5 Hyperlipidemia, unspecified | CPT/HCPCS: 80053; 80061; 82306; 82607; 83036; 84443; 85025 ==

== ENCOUNTER 2023-08-14 00:54 | Emergency (ER) | payer MEDICAID, SELFPAY ==
[2023-08-14] VITALS (9 sets, daily range): BP systolic 111–136; BP diastolic 60–88; PULSE 86–111; RESP 16–18; TEMP 36.6; O2SAT 92–95
[2023-08-14 01:22] LABS: Basophils # 0.1 10^3/uL (0.0-0.1); Basophils % 0.5 %; Eosinophils # 0.2 10^3/uL (0.0-0.8); Hematocrit 45.7 % (37-53); Lymphocytes # 3.4 10^3/uL (0.8-4.8); Lymphocytes % 15.4 %; Mean Corpuscular HGB Conc 34.8 g/dL (30-55); Mean Corpuscular Hemoglobin 31.7 pg (27-33); Mean Corpuscular Volume 91.2 fl (82-101); Mean Platelet Volume 10.8 fL (7.4-10.4); Monocytes # 1.8 10^3/uL (0.2-0.9); Monocytes % 8.1 %; Neutrophils # 16.35 10^3/uL (1.8-7.7); Neutrophils % 74.6 %; Nucleated Red Blood Cells % 0 %; Platelet Count 523 10^3/cmm (157-399); Red Blood Count 5.01 10^6/uL (3.85-5.65); Red Cell Distribution Width 14.9 % (12.1-15.1); White Blood Count 21.92 10^3/uL (3.29-11.43)
[2023-08-14] MEDS: ondansetron 2 mg/ML SDV 2 mL 4 MG IVP ×2 (01:25→05:20)
[2023-08-14] MEDS: sodium chloride 0.9% 1,000 ML 999 ML IV (01:25)
--- NOTE | 2023-08-14 01:28 | ED_ITS ---
HPI - Nausea/Vomiting/Diarrhea 2 General: Chief complaint: Nausea/Vomiting/Diarrhea Stated complaint: V\Diar Time Seen by Provider: 08/14/23 00:58 History of Present Illness: Patient presents to the ER with nausea vomiting and diarrhea. Patient said this is chronic and been going on for over a year. Patient says his entire abdomen started hurting about an hour ago this prompted him to come in to the ER. Patient is been seen multiple times by his family practice doctor and in ER for this chronic nausea vomiting diarrhea. 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 Asthma Attention-deficit hyperactivity disorder, predominantly inattentive type Generalized anxiety disorder Bipolar disorder, unspecified Surgical History H/O esophagogastroduodenoscopy (11/20/20) Status post colonoscopy (11/20/20) History of hernia repair Hx of tonsillectomy History of splenectomy Family History Mother Cancer Diabetes Family/Other Cancer UNCLE Denies family history of Anesthesia complication Bleeding disorder Social History Smoking and tobacco/nicotine status: never used tobacco/nicotine Second hand smoke exposure: Yes Alcohol intake: never Substance/Drug Use: never Caregiver/support person: Yes Lives independently: No Household members: family Marital status: Single Number of children: 0 service: No Current occupational status: disabled Current gender identity: Male Special law needs: No Physical Exam 2 Const: COMMON NORMALS: no acute distress, average body habitus, patient oriented x3, no limitations, healthy appearing, alert and well nourished Neck/C-Spine: COMMON NORMALS: no JVD Chest: COMMONS NORMALS: normal inspection of the chest and normal palpation of entire chest wall Resp: COMMON NORMALS: normal respiratory effort, No retractions, No use of accessory muscles and clear to auscultation bilaterally AUSCULTATION: clear to auscultation bilaterally Cardio: COMMON NORMALS: no JVD, regular rate (Mildly tachycardic), regular rhythm, S1 normal heart sound present, S2 normal heart sound present, No gallops present (Cardio), No clicks present (Cardio) and No murmurs present (Cardio) RATE: regular rate (Mildly tachycardic) RHYTHM: regular rhythm HEART SOUNDS: S1 normal heart sound present and S2 normal heart sound present GI: COMMON NORMALS: Normal to inspection, nondistended, normoactive bowel sounds present, Soft to palpation and No hepatosplenomegaly present; negative for non-tender (Mildly diffusely tender to palpation) PALPATION: Yes Soft to palpation and Yes No hepatosplenomegaly present Neuro: COMMON NORMALS: patient oriented x3 SENSORIUM/ORIENTATION: Yes alert Course 2 Vital Signs: Vital signs: Vital Signs Temperature 97.9 F 08/14/23 00:58 Pulse Rate 102 H 08/14/23 04:00 Respiratory Rate 18 08/14/23 00:58 Blood Pressure 111/60 08/14/23 04:00 Pulse Oximetry 92 08/14/23 04:00 Oxygen Delivery Me thod Room Air 08/14/23 02:01 MDM - Nausea/Vomiting/Diarrhea Medical Decision Making Patient given 1 L normal saline bolus, 4 mg Zofran, lab work involve the CBC CMP lipase which showed a white count of 21,000 otherwise unremarkable, abdomen pelvis CT was obtained which showed infectious or inflammatory enteritis. Patient be placed on Cipro and referred back to his family practice doctor for further evaluation and treatment. Differential Diagnosis Unlikely traveler's diarrhea, food poisoning, gastroenteritis, clostridium difficile infection, drug-induced nausea and vomiting or dehydration Medical Records I reviewed the patient's medical records. Lab Data I reviewed the patient's lab results. 08/14/23 01:10 08/14/23 01:10 Radiology Impressions Abdomen/Pelvis CT 08/14/23 02:14 IMPRESSION: Infectious or inflammatory enteritis. Status post splenectomy. Gallstones without acute cholecystitis. Laboratory Results WBC 21.92 10^3/uL (3.29-11.43) H 08/14/23 01:10 RBC 5.01 10^6/uL (3.85-5.65) 08/14/23 01:10 Hgb 15.90 g/dL (11.27-16.99) 08/14/23 01:10 Hct 45.7 % (37-53) 08/14/23 01:10 MCV 91.2 fl (82-101) 08/14/23 01:10 MCH 31.7 pg (27-33) 08/14/23 01:10 MCHC 34.8 g/dL (30-55) 08/14/23 01:10 RDW 14.9 % (12.1-15.1) 08/14/23 01:10 Plt Count 523 10^3/cmm (157-399) H 08/14/23 01:10 MPV 10.8 fL (7.4-10.4) H 08/14/23 01:10 Neut % (Auto) 74.6 % 08/14/23 01:10 Lymph % (Auto) 15.4 % 08/14/23 01:10 Wilkin % (Auto) 8.1 % 08/14/23 01:10 Eos % (Auto) 1.0 % 08/14/23 01:10 Baso % (Auto) 0.5 % 08/14/23 01:10 Neut # (Auto) 16.35 10^3/uL (1.8-7.7) H 08/14/23 01:10 Lymph # (Auto) 3.4 10^3/uL (0.8-4.8) 08/14/23 01:10 Wilkin # (Auto) 1.8 10^3/uL (0.2-0.9) H 08/14/23 01:10 Eos # (Auto) 0.2 10^3/uL (0.0-0.8) 08/14/23 01:10 Baso # (Auto) 0.1 10^3/uL (0.0-0.1) 08/14/23 01:10 Nucleated RBC % (auto) 0 % 08/14/23 01:10 Nucleated RBCs # 0.0 /100WBC 08/14/23 01:10 Sodium 139 mmol/L (136-145) 08/14/23 01:10 Potassium 3.7 mmol/L (3.5-5.1) 08/14/23 01:10 Chloride 103 mmol/L (98-107) 08/14/23 01:10 Carbon Dioxide 22 mmol/L (22-29) 08/14/23 01:10 Anion Gap 17.7 (5-19) 08/14/23 01:10 BUN 16 mg/dL (6-20) 08/14/23 01:10 Creatinine 0.7 mg/dL (0.7-1.2) 08/14/23 01:10 GFR Calculation 130.7 mL/min (90-130) H 08/14/23 01:10 Glucose 121 mg/dL (65-115) H 08/14/23 01:10 Calculated Osmolality 290 mOsm/kg (285-295) 08/14/23 01:10 Calcium 9.4 mg/dL (8.5-10.5) 08/14/23 01:10 Magnesium 1.8 mg/dL (1.7-2.3) 08/14/23 01:10 Total Bilirubin 0.8 mg/dL (0.15-1.2) 08/14/23 01:10 AST 33 U/L (0-40) 08/14/23 01:10 ALT 45 U/L (0-41) H 08/14/23 01:10 Alkaline Phosphatase 116 U/L (40-130) 08/14/23 01:10 Total Protein 8.0 g/dL (6.6-8.7) 08/14/23 01:10 Albumin 4.6 g/dL (3.5-5.2) 08/14/23 01:10 Globulin 3.4 g/dL (1.3-4.6) 08/14/23 01:10 Lipase 23 U/L (13-60) 08/14/23 01:10 No radiology studies performed this visit Discharge Plan Discharge Patient Disposition: Home Clinical Impression: Enteritis Abdominal pain Qualifiers: Abdominal location: unspecified location Qualified Code(s): R10.9 - Unspecified abdominal pain Condition: Stable Prescriptions: New ondansetron HCl 4 mg tablet 4 mg PO Q8H PRN (Reason: nausea and vomiting) Qty: 14 0RF ciprofloxacin HCl 500 mg tablet 500 mg PO Q12H Qty: 20 0RF No Action emtricitabine-tenofovir (TDF) 200-300 mg tablet See Rx Instructions .ROUTE .COMPLEX Qty: 30 2RF Dose Instruction: TAKE ONE TABLET BY MOUTH EVERY DAY Rx Instructions: TAKE ONE TABLET BY MOUTH EVERY DAY cholecalciferol (vitamin D3) 1,250 mcg (50,000 unit) capsule 50,000 unit PO .weekly Qty: 4 2RF dicyclomine 20 mg tablet 20 mg PO QID Qty: 120 2RF Rx Instructions: Take 1 tablet by mouth four times daily. quetiapine 50 mg tablet 50 mg PO DAILY Qty: 30 2RF Rx Instructions: Take one tablet by mouth every day at bedtime. montelukast 10 mg tablet See Rx Instructions .ROUTE .COMPLEX Qty: 30 2RF Dose Instruction: TAKE ONE TABLET BY MOUTH EVERY DAY Rx Instructions: TAKE ONE TABLET BY MOUTH EVERY DAY fluticasone propionate 50 mcg/actuation spray,suspension 2 spray INTRANASAL DAILY Qty: 16 2RF Spiriva Respimat 2.5 mcg/actuation mist 2 puff inhalation DAILY Qty: 4 2RF albuterol sulfate [Ventolin HFA] 90 mcg/actuation HFA aerosol inhaler 2 puff INHALATION Q6H PRN (Reason: Shortness Of Breath) Qty: 8.5 2RF budesonide-formoterol [Symbicort] 160-4.5 mcg/actuation HFA aerosol inhaler 2 puff inhalation BID Qty: 10.2 2RF Periogard 0.12 % mouthwash 15 ml buccal BID Qty: 473 2RF Lastacaft 0.25 % drops See Rx Instructions .ROUTE .COMPLEX Rx Instructions: USE DIRECTED BID AT 1000,2200 Imodium A-D 2 mg tablet 2 mg PO Q6H PRN (Reason: loose stool) Qty: 30 0RF Discharge Orders: Discharge ED (Routine); Ordered 08/14/23 Ordered By: Papito Styles Patient Instructions: Abdominal Pain (ED), Enteritis (ED) Activity Restrictions/Additional Instructions: Your evaluation in the ER that included lab work and CT scan of your abdomen pelvis showed you may have enteritis which is irritation of your intestines. This is sometimes inflammatory or infectious. You have been prescribed Cipro as an antibiotic and Zofran is an antinausea pill please take these as directed. Please follow-up with your family practice physician for further evaluation and testing. Coding Level of Care Code ED Rubber Tile Floor Layer for Travis Landrum
[2023-08-14 01:40] LABS: Alanine Aminotransferase 45 U/L (0-41); Albumin Level 4.6 g/dL (3.5-5.2); Alkaline Phosphatase 116 U/L (40-130); Anion Gap 17.7 (5-19); Aspartate Amino Transferase 33 U/L (0-40); Blood Urea Nitrogen 16 mg/dL (6-20); Calcium 9.4 mg/dL (8.5-10.5); Carbon Dioxide 22 mmol/L (22-29); Chloride 103 mmol/L (98-107); Creatinine Clr Calc Pharmacy 170.4377; Globulin 3.4 g/dL (1.3-4.6); Glomerular Filtration Rate 130.7 mL/min (90-130); Glucose 121 mg/dL (65-115); Lipase 23 U/L (13-60); Magnesium 1.8 mg/dL (1.7-2.3); Osmolality Calculated 290 mOsm/kg (285-295); Potassium 3.7 mmol/L (3.5-5.1); Sodium 139 mmol/L (136-145); Total Bilirubin 0.8 mg/dL (0.15-1.2)
[2023-08-14 01:50] LABS: Slide Review Slide Review Perform
--- NOTE | 2023-08-14 02:14 | CTR_ITS ---
PROCEDURE INFORMATION: Exam: CT Abdomen And Pelvis With Contrast Exam date and time: 08/14/2023 2:24 AM Age: 33 years old Clinical indication: Nausea and vomiting; Prior surgery; Surgery date: 6+ months; Surgery type: Hernia, splenectomy; Additional info: Diffuse abd pain, n/v/d, leukocytosis TECHNIQUE: Imaging protocol: Computed tomography of the abdomen and pelvis with contrast. Radiation optimization: All CT scans at this facility use at least one of these dose optimization techniques: automated exposure control; mA and/or kV adjustment per patient size (includes targeted exams where dose is matched to clinical indication); or iterative reconstruction. Contrast material: OMNI 350; Contrast volume: 100 ml; Contrast route: INTRAVENOUS (IV); COMPARISON: CT abdomen pelvis w con* [id number] 02/12/2021 10:20 PM RADIATION DOSE METRICS: Total DLP (mGy-cm): 951 FINDINGS: Liver: Normal. No mass. Gallbladder and bile ducts: Gallstones without evidence of acute cholecystitis. Pancreas: Normal. No ductal dilation. Spleen: The patient has had a splenectomy. Adrenal glands: Normal. No mass. Kidneys and ureters: Normal. No hydronephrosis. Stomach and bowel: Loops of small bowel in the left upper quadrant with thickened hussein consistent with infectious or inflammatory enteritis. Appendix: No evidence of appendicitis. Intraperitoneal space: Unremarkable. No free air. No significant fluid collection. Vasculature: Unremarkable. No abdominal aortic aneurysm. Lymph nodes: Unremarkable. No enlarged lymph nodes. Urinary bladder: Unremarkable as visualized. Reproductive: Unremarkable as visualized. Bones/joints: Unremarkable. No acute fracture. Soft tissues: Unremarkable. CT/CT abdomen pelvis w con* [id number] IMPRESSION: Infectious or inflammatory enteritis. Status post splenectomy. Gallstones without acute cholecystitis.
[2023-08-14] MEDS: iohexol 350 mg/mL 500 mL Btl (per mL) IV (02:26)
== END 2023-08-14 05:32 | disposition home or self-care (01) ==
PROVIDERS: Emergency Provider Emergency Medicine
DX: K52.9 Noninfective gastroenteritis and colitis, unspecified (principal); Z77.22 Contact with and (suspected) exposure to environmental tobacco smoke (acute) (chronic)
CPT/HCPCS: 74177; 80053; 83690; 83735; 85025; 96361; 96374; 96376; 99285; J2405; J7030; Q9967

== ENCOUNTER 2023-08-24 17:06 | Emergency (ER) | payer MEDICAID, SELFPAY ==
[2023-08-24 17:14] VITALS: BP 121/79; PULSE 86; RESP 16; TEMP 36.6; O2SAT 95
--- NOTE | 2023-08-24 17:26 | ED_ITS ---
HPI - Nausea/Vomiting/Diarrhea 2 General: Chief complaint: Nausea/Vomiting/Diarrhea Stated complaint: v/d Time Seen by Provider: 08/24/23 17:25 History of Present Illness: 33-year-old male patient comes in today with epigastric pain along with vomiting and diarrhea that he reports is chronic. Patient states that it has been going on for several years but has flared up more recently. Patient reports being seen by emergency department 10 days ago and at that time was diagnosed with enteritis. Patient was given some antibiotics and Zofran but reports no improvement of symptoms and increased pain. Patient appears nontoxic. Patient appears in no pain at this time. Patient does not endorse blood in the stool or vomitus. Review of the record it was noted patient had enteritis on the and was also noted to have a large gallstone in the gallbladder. Patient was also seen to have been seen in February 2021 and had a gallstone at that time 2. Patient's symptoms are reported to be exacerbated after eating. 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 Asthma Attention-deficit hyperactivity disorder, predominantly inattentive type Generalized anxiety disorder Bipolar disorder, unspecified Surgical History H/O esophagogastroduodenoscopy (11/20/20) Status post colonoscopy (11/20/20) History of hernia repair Hx of tonsillectomy History of splenectomy Family History Mother Cancer Diabetes Family/Other Cancer UNCLE Denies family history of Anesthesia complication Bleeding disorder Social History Smoking and tobacco/nicotine status: never used tobacco/nicotine Second hand smoke exposure: Yes Alcohol intake: never Substance/Drug Use: never Caregiver/support person: Yes Lives independently: No Household members: family Marital status: Single Number of children: 0 service: No Current occupational status: disabled Current gender identity: Male Special law needs: No Physical Exam 2 Const: COMMON NORMALS: alert HENMT: COMMON NORMALS: normocephalic HEAD & SCALP: normocephalic Neck/C-Spine: COMMON NORMALS: full ROM Resp: COMMON NORMALS: normal respiratory effort and clear to auscultation bilaterally AUSCULTATION: clear to auscultation bilaterally Cardio: COMMON NORMALS: regular rate RATE: regular rate GI: AUSCULTATION: Yes normoactive bowel sounds PALPATION: Yes Tenderness to palpation present (GI) (Epigastric) Back/Pelvis: COMMON NORMALS: thoracic and lumbar spine normal to inspection Extremity: COMMON NORMALS: normal to inspection Neuro: SENSORIUM/ORIENTATION: Yes alert Skin: COMMON NORMALS: turgor normal GENERAL SKIN EXAM: turgor normal Course 2 Vital Signs: Vital signs: Vital Signs Temperature 97.8 F 08/24/23 17:14 Pulse Rate 86 08/24/23 17:14 Respiratory Rate 16 08/24/23 17:14 Blood Pressure 121/79 08/24/23 17:14 Pulse Oximetry 95 08/24/23 17:14 Oxygen Delivery Me thod Room Air 08/24/23 17:14 MDM - Nausea/Vomiting/Diarrhea Medical Decision Making 33-year-old male patient comes in today with recurrent nausea, vomiting, and diarrhea. Patient reports eating seems to make the symptoms worse. Patient reports symptoms have waxed and waned for the last 2 to 3 years. Patient appears nontoxic. Patient was last treated 10 days ago with Zofran and Cipro. Patient reports medications do not help and seems to have worsened the symptoms. Patient denies any blood in vomit or stool. Patient appears well. Patient appears in no pain. Vital signs are normal. Differential diagnosis includes gallbladder colic, cholelithiasis, irritable bowel syndrome, malingering. Laboratory values were unremarkable. Patient was given a liter of fluids. Patient is mainly concerned with about the persistence of symptoms she has had. Reviewed CT scan from 10 days ago and shoulder enteritis but patient also had a large gallstone. Did a gallbladder ultrasound today which did note cholelithiasis and some mild gallbladder wall thickening. No Mckee's tenderness was noted. White count had improved from prior exam. And chemistries were normal. Suspect patient may have had a mild cholecystitis with his enteritis before that was treated with the Cipro. Will go ahead and recommend the patient follow-up with surgeon for the gallstone and due to his symptoms of nausea and diarrhea after eating. Patient was agreeable to this and believes that may be his gallbladder that is acting up but has yet to have anyone wanting to remove it. Otherwise, patient is stable and discharged home with Bentyl and Zofran. Lab Data 08/24/23 17:50 08/24/23 17:50 Radiology Impressions Gallbladder Ultrasound 08/24/23 17:37 IMPRESSION: Cholelithiasis and mild gallbladder wall thickening, raising concern for acute cholecystitis. If clinically indicated, HIDA scan may be useful for confirmation. Laboratory Results WBC 10.73 10^3/uL (3.29-11.43) 08/24/23 17:50 RBC 4.76 10^6/uL (3.85-5.65) 08/24/23 17:50 Hgb 15.00 g/dL (11.27-16.99) 08/24/23 17:50 Hct 42.9 % (37-53) 08/24/23 17:50 MCV 90.1 fl (82-101) 08/24/23 17:50 MCH 31.5 pg (27-33) 08/24/23 17:50 MCHC 35.0 g/dL (30-55) 08/24/23 17:50 RDW 14.6 % (12.1-15.1) 08/24/23 17:50 Plt Count 648 10^3/cmm (157-399) H 08/24/23 17:50 MPV 10.4 fL (7.4-10.4) 08/24/23 17:50 Neut % (Auto) 31.8 % 08/24/23 17:50 Lymph % (Auto) 47.3 % 08/24/23 17:50 Tate % (Auto) 15.8 % 08/24/23 17:50 Eos % (Auto) 3.7 % 08/24/23 17:50 Baso % (Auto) 1.1 % 08/24/23 17:50 Neut # (Auto) 3.41 10^3/uL (1.8-7.7) 08/24/23 17:50 Lymph # (Auto) 5.1 10^3/uL (0.8-4.8) H 08/24/23 17:50 Tate # (Auto) 1.7 10^3/uL (0.2-0.9) H 08/24/23 17:50 Eos # (Auto) 0.4 10^3/uL (0.0-0.8) 08/24/23 17:50 Baso # (Auto) 0.1 10^3/uL (0.0-0.1) 08/24/23 17:50 Nucleated RBC % (auto) 0 % 08/24/23 17:50 Nucleated RBCs # 0.0 /100WBC 08/24/23 17:50 Sodium 145 mmol/L (136-145) 08/24/23 17:50 Potassium 3.7 mmol/L (3.5-5.1) 08/24/23 17:50 Chloride 109 mmol/L (98-107) H 08/24/23 17:50 Carbon Dioxide 25 mmol/L (22-29) 08/24/23 17:50 Anion Gap 14.7 (5-19) 08/24/23 17:50 BUN 9 mg/dL (6-20) 08/24/23 17:50 Creatinine 0.8 mg/dL (0.7-1.2) 08/24/23 17:50 GFR Calculation 112.0 mL/min (90-130) 08/24/23 17:50 Glucose 93 mg/dL (65-115) 08/24/23 17:50 Calculated Osmolality 298 mOsm/kg (285-295) H 08/24/23 17:50 Lactic Acid 0.8 mmol/L (0.5-2.2) 08/24/23 17:50 Calcium 8.8 mg/dL (8.5-10.5) 08/24/23 17:50 Total Bilirubin 0.3 mg/dL (0.15-1.2) 08/24/23 17:50 AST 25 U/L (0-40) 08/24/23 17:50 ALT 32 U/L (0-41) 08/24/23 17:50 Alkaline Phosphatase 127 U/L (40-130) 08/24/23 17:50 Total Protein 7.6 g/dL (6.6-8.7) 08/24/23 17:50 Albumin 4.4 g/dL (3.5-5.2) 08/24/23 17:50 Globulin 3.2 g/dL (1.3-4.6) 08/24/23 17:50 Lipase 26 U/L (13-60) 08/24/23 17:50 All radiology interpretation(s) finalized by discharge Discharge Plan Discharge Patient Disposition: Home Clinical Impression: Cholelithiasis Qualifiers: Cholelithiasis location: gallbladder Cholecystitis presence: without cholecystitis Biliary obstruction: without biliary obstruction Qualified Code(s): K80.20 - Calculus of gallbladder without cholecystitis without obstruction Condition: Stable Prescriptions: New dicyclomine 20 mg tablet 20 mg PO QID PRN (Reason: abdominal pain) Qty: 40 0RF ondansetron 4 mg tablet,disintegrating 4 mg PO Q8H PRN (Reason: nausea and vomiting) Qty: 10 0RF No Action emtricitabine-tenofovir (TDF) 200-300 mg tablet See Rx Instructions .ROUTE .COMPLEX Qty: 30 2RF Dose Instruction: TAKE ONE TABLET BY MOUTH EVERY DAY Rx Instructions: TAKE ONE TABLET BY MOUTH EVERY DAY cholecalciferol (vitamin D3) 1,250 mcg (50,000 unit) capsule 50,000 unit PO .weekly Qty: 4 2RF dicyclomine 20 mg tablet 20 mg PO QID Qty: 120 2RF Rx Instructions: Take 1 tablet by mouth four times daily. quetiapine 50 mg tablet 50 mg PO DAILY Qty: 30 2RF Rx Instructions: Take one tablet by mouth every day at bedtime. montelukast 10 mg tablet See Rx Instructions .ROUTE .COMPLEX Qty: 30 2RF Dose Instruction: TAKE ONE TABLET BY MOUTH EVERY DAY Rx Instructions: TAKE ONE TABLET BY MOUTH EVERY DAY fluticasone propionate 50 mcg/actuation spray,suspension 2 spray INTRANASAL DAILY Qty: 16 2RF Spiriva Respimat 2.5 mcg/actuation mist 2 puff inhalation DAILY Qty: 4 2RF albuterol sulfate [Ventolin HFA] 90 mcg/actuation HFA aerosol inhaler 2 puff INHALATION Q6H PRN (Reason: Shortness Of Breath) Qty: 8.5 2RF budesonide-formoterol [Symbicort] 160-4.5 mcg/actuation HFA aerosol inhaler 2 puff inhalation BID Qty: 10.2 2RF Periogard 0.12 % mouthwash 15 ml buccal BID Qty: 473 2RF Lastacaft 0.25 % drops See Rx Instructions .ROUTE .COMPLEX Rx Instructions: USE DIRECTED BID AT 1000,2200 Imodium A-D 2 mg tablet 2 mg PO Q6H PRN (Reason: loose stool) Qty: 30 0RF ondansetron HCl 4 mg tablet 4 mg PO Q8H PRN (Reason: nausea and vomiting) Qty: 14 0RF ciprofloxacin HCl 500 mg tablet 500 mg PO Q12H Qty: 20 0RF Discharge Orders: Discharge ED (Routine); Ordered 08/24/23 Ordered By: Jose C Mancera Referrals: Betzaida Satnos FNP-C [Primary Care Provider] - Discharge Diet: Usual diet Patient Instructions: Biliary Colic (ED), Gallstones (ED) Activity Restrictions/Additional Instructions: Use dicyclomine to help with abdominal pain and diarrhea. Take medication as directed every 4-6 hours as needed for pain. Take 30 minutes prior to meal to help with postmeal symptoms. Use Zofran as needed for breakthrough nausea. Follow-up with surgeon for further care and removal of gallbladder. Return to ER for fever greater than 100.4, blood in vomit or stool, or uncontrolled pain. Coding Level of Care Code ED [employer] Compliance Specialist for Travis Landrum
--- NOTE | 2023-08-24 17:37 | USR_ITS ---
PROCEDURE INFORMATION: Exam: US Abdomen, Limited; Right Upper Quadrant Exam date and time: 08/24/2023 5:49 PM Age: 33 years old Clinical indication: Abdominal pain; Acute; Additional info: N/v/d, gallstones TECHNIQUE: Imaging protocol: Real time ultrasound of the abdomen with image documentation. Limited exam focused on the right upper quadrant. COMPARISON: CT abdomen pelvis w con* [id number] 08/14/2023 2:24 AM FINDINGS: Liver: Unremarkable. Gallbladder: Cholelithiasis and mild gallbladder wall thickening. No pericholecystic fluid. Biliary ducts: Normal. No stones. No dilation. Pancreas: Unremarkable as visualized. Right kidney: No mass. No definite stones. No hydronephrosis. US/US gall bladder [id number] IMPRESSION: Cholelithiasis and mild gallbladder wall thickening, raising concern for acute cholecystitis. If clinically indicated, HIDA scan may be useful for confirmation.
[2023-08-24 18:06] LABS: Positive M 1
[2023-08-24 18:07] LABS: Basophils # 0.1 10^3/uL (0.0-0.1); Basophils % 1.1 %; Eosinophils # 0.4 10^3/uL (0.0-0.8); Eosinophils % 3.7 %; Hematocrit 42.9 % (37-53); Lymphocytes # 5.1 10^3/uL (0.8-4.8); Lymphocytes % 47.3 %; Mean Corpuscular Hemoglobin 31.5 pg (27-33); Mean Corpuscular Volume 90.1 fl (82-101); Mean Platelet Volume 10.4 fL (7.4-10.4); Monocytes # 1.7 10^3/uL (0.2-0.9); Monocytes % 15.8 %; Neutrophils # 3.41 10^3/uL (1.8-7.7); Neutrophils % 31.8 %; Nucleated Red Blood Cells % 0 %; Platelet Count 648 10^3/cmm (157-399); Red Blood Count 4.76 10^6/uL (3.85-5.65); Red Cell Distribution Width 14.6 % (12.1-15.1); White Blood Count 10.73 10^3/uL (3.29-11.43)
[2023-08-24 18:29] LABS: Alanine Aminotransferase 32 U/L (0-41); Albumin Level 4.4 g/dL (3.5-5.2); Alkaline Phosphatase 127 U/L (40-130); Anion Gap 14.7 (5-19); Aspartate Amino Transferase 25 U/L (0-40); Blood Urea Nitrogen 9 mg/dL (6-20); Calcium 8.8 mg/dL (8.5-10.5); Carbon Dioxide 25 mmol/L (22-29); Chloride 109 mmol/L (98-107); Creatinine Clr Calc Pharmacy 151.8548; Globulin 3.2 g/dL (1.3-4.6); Glucose 93 mg/dL (65-115); Lipase 26 U/L (13-60); Osmolality Calculated 298 mOsm/kg (285-295); Potassium 3.7 mmol/L (3.5-5.1); Sodium 145 mmol/L (136-145); Total Bilirubin 0.3 mg/dL (0.15-1.2); Total Protein 7.6 g/dL (6.6-8.7)
[2023-08-24] MEDS: lactated ringers 1,000 ML 999 ML IV (18:29)
[2023-08-24 18:30] LABS: Lactic Sepsis W/Reflex 0.8 mmol/L (0.5-2.2)
[2023-08-24 19:31] VITALS: BP 120/82; PULSE 81; RESP 16; TEMP 36.6; O2SAT 96
--- NOTE | 2023-08-24 20:53 | DCPLANNER ---
Message sent to General surgery for referral of gallstones
== END 2023-08-24 19:32 | disposition home or self-care (01) ==
PROVIDERS: Emergency Provider Nurse Practitioner Family; PCP Nurse Practitioner Family
DX: K80.20 Calculus of gallbladder without cholecystitis without obstruction (principal); Z77.22 Contact with and (suspected) exposure to environmental tobacco smoke (acute) (chronic)
CPT/HCPCS: 36415; 76705; 80053; 83605; 83690; 85025; 99284; J7120

== ENCOUNTER 2023-08-28 14:26 | Emergency (ER) | payer MEDICAID, SELFPAY ==
[2023-08-28 14:29] VITALS: BP 115/70; PULSE 64; RESP 17; TEMP 36.6; O2SAT 94; BMI 39.1
[2023-08-28 15:44] LABS: Basophils # 0.1 10^3/uL (0.0-0.1); Eosinophils # 0.2 10^3/uL (0.0-0.8); Eosinophils % 2.4 %; Hematocrit 42.7 % (37-53); Lymphocytes # 5.1 10^3/uL (0.8-4.8); Lymphocytes % 63.7 %; Mean Corpuscular HGB Conc 34.2 g/dL (30-55); Mean Corpuscular Hemoglobin 31.5 pg (27-33); Mean Platelet Volume 10.2 fL (7.4-10.4); Monocytes # 0.7 10^3/uL (0.2-0.9); Monocytes % 8.5 %; Neutrophils # 1.93 10^3/uL (1.8-7.7); Neutrophils % 24.3 %; Nucleated Red Blood Cells % 0 %; Platelet Count 575 10^3/cmm (157-399); Red Blood Count 4.64 10^6/uL (3.85-5.65); Red Cell Distribution Width 14.7 % (12.1-15.1); White Blood Count 7.96 10^3/uL (3.29-11.43)
[2023-08-28 16:02] LABS: Alanine Aminotransferase 29 U/L (0-41); Albumin Level 4.2 g/dL (3.5-5.2); Alkaline Phosphatase 110 U/L (40-130); Anion Gap 12.5 (5-19); Aspartate Amino Transferase 23 U/L (0-40); Blood Urea Nitrogen 12 mg/dL (6-20); Calcium 9.2 mg/dL (8.5-10.5); Carbon Dioxide 28 mmol/L (22-29); Chloride 105 mmol/L (98-107); Glomerular Filtration Rate 156.1 mL/min (90-130); Glucose 85 mg/dL (65-115); Osmolality Calculated 293 mOsm/kg (285-295); Potassium 3.5 mmol/L (3.5-5.1); Sodium 142 mmol/L (136-145); Total Bilirubin 0.3 mg/dL (0.15-1.2); Total Protein 7.2 g/dL (6.6-8.7)
[2023-08-28 16:28] VITALS: BP 146/62; PULSE 67; O2SAT 94
--- NOTE | 2023-08-28 16:28 | USR_ITS ---
PROCEDURE INFORMATION: Exam: US Abdomen, Limited; Right Upper Quadrant Exam date and time: 08/28/2023 4:55 PM Age: 33 years old Clinical indication: Abdominal pain; Additional info: Abd pain TECHNIQUE: Imaging protocol: Real time ultrasound of the abdomen with image documentation. Limited exam focused on the right upper quadrant. COMPARISON: US gall bladder [id number] 08/24/2023 5:49 PM FINDINGS: Liver: Unremarkable. Gallbladder: Cholelithiasis and mild gallbladder wall thickening. No pericholecystic fluid. Biliary ducts: Normal. No stones. No dilation. Pancreas: Unremarkable as visualized. Right kidney: No mass. No definite stones. No hydronephrosis. US/US gall bladder [id number] IMPRESSION: Cholelithiasis and mild gallbladder wall thickening, raising concern for acute cholecystitis. If clinically indicated, HIDA scan may be useful for confirmation.
[2023-08-28] MEDS: diphenhydrAMINE 50 mg/mL SDV 1mL IVP (16:46)
--- NOTE | 2023-08-28 16:48 | ED_ITS ---
HPI - Nausea/Vomiting/Diarrhea 2 General: Chief complaint: Nausea/Vomiting/Diarrhea Stated complaint: diarrhea Time Seen by Provider: 08/28/23 16:27 Source: patient Mode of arrival: ambulatory History of Present Illness: 33-year-old male presents emergency room complaining of persistent diarrhea with upper abdominal epigastric discomfort. He was seen for it earlier this month initially on the and subsequently on the . His first visit was thought to be enteritis he did have an elevated white count, CT at that time which did not show any significant abdominal pathology did note gallstones with no evidence of acute cholecystitis. On subsequent visit on the his white count was improved but an ultrasound done at that time had signs of cholecystitis with some thickening of the gallbladder wall. He was deferred to outpatient treatment. He returns today continued complaining of continued nausea vomiting and diarrhea triggered by eating. It does not seem to matter what he eats almost anything will cause that he denies hematochezia melena hematemesis or coffee-ground emesis denies dysuria urgency or frequency no fever. MD elicited complaint: nausea, vomiting and diarrhea Pertinent past history: other (Cholelithiasis) Onset (ago): minute(s) Description of vomiting: bilious Description of diarrhea: semi-solid Associated nausea: Yes Associated abdominal pain: Yes Location of pain: Epigastric, LUQ and RUQ Quality: cramping Exacerbating factors: eating Relieving factors: none Associated symtoms: Reports bloating, anorexia, malaise, nausea and weakness; Denies altered mental status, anxiety, change in vision, chest pain, cough, diaphoresis, decreased urine output, dizziness, dysuria, epistaxis, fatigue, fecal incontinence, fevers/chills, headache(s), myalgias, numbness, palpitations, rash, short of breath, syncope, tenesmus or tinnitus Review of Systems 2 Const: Reports: malaise; Denies: fever(s), chills, fatigue or diaphoresis Eyes: Denies: change in vision ENMT: Denies: tinnitus or epistaxis Card: Denies: chest pain, palpitations or syncope Resp: Denies: dyspnea, productive cough or non-productive cough GI: Reports: abdominal pain, nausea, vomiting, diarrhea and bloating; Denies: fecal incontinence : Denies: dysuria, urinary frequency or urinary urgency Musc: Denies: neck pain or back pain Skin/Breast: Denies: rash Neuro: Denies: headache(s) or dizziness Psych: Denies: anxiety PFSH ED 2 PFSH: Medical History Urinary hesitancy Calculus of kidney Anxiety Frequent headaches GERD (gastroesophageal reflux disease) Idiopathic thrombocytopenic purpura (ITP) Compression fracture of L1 vertebra with routine healing Other spondylosis with radiculopathy, lumbar region Displacement of lumbar intervertebral disc 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 Asthma Attention-deficit hyperactivity disorder, predominantly inattentive type Generalized anxiety disorder Bipolar disorder, unspecified Surgical History H/O esophagogastroduodenoscopy (11/20/20) Status post colonoscopy (11/20/20) History of hernia repair Hx of tonsillectomy History of splenectomy Family History Mother Cancer Diabetes Family/Other Cancer UNCLE Denies family history of Anesthesia complication Bleeding disorder Social History Smoking and tobacco/nicotine status: never used tobacco/nicotine Second hand smoke exposure: Yes Alcohol intake: never Substance/Drug Use: never Caregiver/support person: Yes Lives independently: No Household members: family Marital status: Single Number of children: 0 service: No Current occupational status: disabled Current gender identity: Male Special law needs: No Physical Exam 2 Const: COMMON NORMALS: no acute distress EXAM LIMITATIONS: no altered mental status GENERAL APPEARANCE: cooperative and comfortable O RIENTATION/CONSCIOUSNESS: Yes awake, Yes oriented to person, Yes oriented to place and Yes oriented to time HENMT: COMMON NORMALS: normocephalic, atraumatic and hearing grossly normal bilaterally HEAD & SCALP: normocephalic and atraumatic Resp: COMMON NORMALS: normal respiratory effort, No retractions, No use of accessory muscles and clear to auscultation bilaterally AUSCULTATION: clear to auscultation bilaterally Cardio: COMMON NORMALS: regular rate, regular rhythm and No murmurs present (Cardio) RATE: regular rate RHYTHM: regular rhythm GI: COMMON NORMALS: Soft to palpation and No hepatosplenomegaly present A USCULTATION: Yes normoactive bowel sounds PALPATION: Yes Soft to palpation, No Tenderness to palpation present (GI), No Guarding due to palpation present (GI) and Yes No hepatosplenomegaly present Extremity: COMMON NORMALS: normal to inspection, capillary refill normal, no clubbing, cyanosis or edema, no calf tenderness and no pedal edema Neuro: SENSORIUM/ORIENTATION: Yes oriented to person, Yes oriented to place and Yes oriented to time Skin: COMMON NORMALS: no rashes or lesions noted GENERAL SKIN EXAM: no rashes or lesions noted Course 2 Vital Signs: Vital signs: Vital Signs Temperature 97.9 F 08/28/23 14:29 Pulse Rate 67 08/28/23 16:28 Respiratory Rate 17 08/28/23 14:29 Blood Pressure 146/62 08/28/23 16:28 Pulse Oximetry 94 08/28/23 16:28 Oxygen Delivery Me thod Room Air 08/28/23 16:28 MDM - Nausea/Vomiting/Diarrhea Medical Decision Making Gallbladder shows signs of early acute cholecystitis as seen previously. Also has cholelithiasis. White count liver functions are normal. Patient is complaining of persistent symptoms over the last 3 weeks. Consult general surgery in the ER for further recommendations General surgery seen the patient recommends follow-up in the outpatient clinic for scheduling of outpatient cholecystectomy Medical Records I reviewed the patient's medical records. Lab Data I reviewed the patient's lab results. 08/28/23 15:38 08/28/23 15:38 Radiology Impressions Gallbladder Ultrasound 08/28/23 16:28 IMPRESSION: Cholelithiasis and mild gallbladder wall thickening, raising concern for acute cholecystitis. If clinically indicated, HIDA scan may be useful for confirmation. Laboratory Results WBC 7.96 10^3/uL (3.29-11.43) 08/28/23 15:38 RBC 4.64 10^6/uL (3.85-5.65) 08/28/23 15:38 Hgb 14.60 g/dL (11.27-16.99) 08/28/23 15:38 Hct 42.7 % (37-53) 08/28/23 15:38 MCV 92.0 fl (82-101) 08/28/23 15:38 MCH 31.5 pg (27-33) 08/28/23 15:38 MCHC 34.2 g/dL (30-55) 08/28/23 15:38 RDW 14.7 % (12.1-15.1) 08/28/23 15:38 Plt Count 575 10^3/cmm (157-399) H 08/28/23 15:38 MPV 10.2 fL (7.4-10.4) 08/28/23 15:38 Neut % (Auto) 24.3 % 08/28/23 15:38 Lymph % (Auto) 63.7 % 08/28/23 15:38 [place] % (Auto) 8.5 % 08/28/23 15:38 Eos % (Auto) 2.4 % 08/28/23 15:38 Baso % (Auto) 1.0 % 08/28/23 15:38 Neut # (Auto) 1.93 10^3/uL (1.8-7.7) 08/28/23 15:38 Lymph # (Auto) 5.1 10^3/uL (0.8-4.8) H 08/28/23 15:38 [place]lette # (Auto) 0.7 10^3/uL (0.2-0.9) 08/28/23 15:38 Eos # (Auto) 0.2 10^3/uL (0.0-0.8) 08/28/23 15:38 Baso # (Auto) 0.1 10^3/uL (0.0-0.1) 08/28/23 15:38 Nucleated RBC % (auto) 0 % 08/28/23 15:38 Nucleated RBCs # 0.0 /100WBC 08/28/23 15:38 Sodium 142 mmol/L (136-145) 08/28/23 15:38 Potassium 3.5 mmol/L (3.5-5.1) 08/28/23 15:38 Chloride 105 mmol/L (98-107) 08/28/23 15:38 Carbon Dioxide 28 mmol/L (22-29) 08/28/23 15:38 Anion Gap 12.5 (5-19) 08/28/23 15:38 BUN 12 mg/dL (6-20) 08/28/23 15:38 Creatinine 0.6 mg/dL (0.7-1.2) L 08/28/23 15:38 GFR Calculation 156.1 mL/min (90-130) H 08/28/23 15:38 Glucose 85 mg/dL (65-115) 08/28/23 15:38 Calculated Osmolality 293 mOsm/kg (285-295) 08/28/23 15:38 Calcium 9.2 mg/dL (8.5-10.5) 08/28/23 15:38 Total Bilirubin 0.3 mg/dL (0.15-1.2) 08/28/23 15:38 AST 23 U/L (0-40) 08/28/23 15:38 ALT 29 U/L (0-41) 08/28/23 15:38 Alkaline Phosphatase 110 U/L (40-130) 08/28/23 15:38 Total Protein 7.2 g/dL (6.6-8.7) 08/28/23 15:38 Albumin 4.2 g/dL (3.5-5.2) 08/28/23 15:38 Globulin 3.0 g/dL (1.3-4.6) 08/28/23 15:38 Lipase 24 U/L (13-60) 08/28/23 15:38 All radiology interpretation(s) finalized by discharge Discharge Plan Discharge Patient Disposition: Home Clinical Impression: Cholelithiasis, Biliary colic, Nausea vomiting and diarrhea Condition: Stable Prescriptions: No Action emtricitabine-tenofovir (TDF) 200-300 mg tablet See Rx Instructions .ROUTE .COMPLEX Qty: 30 2RF Dose Instruction: TAKE ONE TABLET BY MOUTH EVERY DAY Rx Instructions: TAKE ONE TABLET BY MOUTH EVERY DAY cholecalciferol (vitamin D3) 1,250 mcg (50,000 unit) capsule 50,000 unit PO .weekly Qty: 4 2RF dicyclomine 20 mg tablet 20 mg PO QID Qty: 120 2RF Rx Instructions: Take 1 tablet by mouth four times daily. quetiapine 50 mg tablet 50 mg PO DAILY Qty: 30 2RF Rx Instructions: Take one tablet by mouth every day at bedtime. montelukast 10 mg tablet See Rx Instructions .ROUTE .COMPLEX Qty: 30 2RF Dose Instruction: TAKE ONE TABLET BY MOUTH EVERY DAY Rx Instructions: TAKE ONE TABLET BY MOUTH EVERY DAY fluticasone propionate 50 mcg/actuation spray,suspension 2 spray INTRANASAL DAILY Qty: 16 2RF Spiriva Respimat 2.5 mcg/actuation mist 2 puff inhalation DAILY Qty: 4 2RF albuterol sulfate [Ventolin HFA] 90 mcg/actuation HFA aerosol inhaler 2 puff INHALATION Q6H PRN (Reason: Shortness Of Breath) Qty: 8.5 2RF budesonide-formoterol [Symbicort] 160-4.5 mcg/actuation HFA aerosol inhaler 2 puff inhalation BID Qty: 10.2 2RF Periogard 0.12 % mouthwash 15 ml buccal BID Qty: 473 2RF Lastacaft 0.25 % drops See Rx Instructions .ROUTE .COMPLEX Rx Instructions: USE DIRECTED BID AT 1000,2200 Imodium A-D 2 mg tablet 2 mg PO Q6H PRN (Reason: loose stool) Qty: 30 0RF ondansetron HCl 4 mg tablet 4 mg PO Q8H PRN (Reason: nausea and vomiting) Qty: 14 0RF ciprofloxacin HCl 500 mg tablet 500 mg PO Q12H Qty: 20 0RF dicyclomine 20 mg tablet 20 mg PO QID PRN (Reason: abdominal pain) Qty: 40 0RF ondansetron 4 mg tablet,disintegrating 4 mg PO Q8H PRN (Reason: nausea and vomiting) Qty: 10 0RF Discharge Orders: Discharge ED (Routine); Ordered 08/28/23 Ordered By: Kwabena Pryor Referrals: Betzaida Santos FNP-C [Primary Care Provider] - Discharge Diet: As Directed Patient Instructions: Biliary Colic (ED), Gallstones (ED), Abdominal Pain (ED), Opioid Safety, Pain Management Activity Restrictions/Additional Instructions: You are seen in the emergency room for persistent nausea vomiting and diarrhea. This is likely driven by your gallbladder. You do have gallstones. Your white count and your liver functions are normal however. We had you see Dr. Blake while in the emergency room he recommends follow-up in the outpatient clinic next week and they will schedule for outpatient cholecystectomy. At this time did not feel emergent cholecystectomy was warranted. The remainder of your labs were unremarkable is no sign of dehydration no elevated white count. Keep your appoint with Dr. Blake next week as planned. Coding Level of Care Code ED [place] Opener for Travis Landrum
[2023-08-28] MEDS: sodium chloride 0.9% 1,000 ML 999 ML IV (16:49)
[2023-08-28 17:19] LABS: Lipase 24 U/L (13-60)
--- NOTE | 2023-08-28 18:02 | P.CONIM_ITS ---
Providers/Reason For Consult 2 Consulting Physician/Specialty*: General surgery Reason for Consult*: Evaluation for possible cholecystitis Primary Care Provider: SHANE Gomes History of Present Illness History of Present Illness Willi Meadows is a 33 year old male Who has a history of chronic diarrhea, with ER visits dating back to 2021, over the last month or so he has presented a couple of times to the ED again with complaints of diarrhea nausea and vomiting. Initially he had a CT scan of the abdomen and pelvis which showed no evidence of significant intra-abdominal pathology but the possibility of enteritis with some distention of the intestine. At the time his white count was elevated, he received a short course of antibiotics. He recently returned to the ED with similar symptoms and time workup was negative and ultrasound of the gallbladder showed no evidence of acute cholecystitis but some mild wall thickening, with a negative Mckee sign. According to the patient he was advised that with this findings his gallbladder should have been removed and since he is still having symptoms he decided to come back to the ED. As per patient report he has diarrhea with eating it usually happens for hours after he eats, no significant abdominal pain except for some sporadic pain sensation in the upper abdomen that radiates to the left and right side. No back pain. No fever no chills, no other significant symptoms. His surgical history is remarkable for history of splenectomy and left flank hernia repair Review of Systems 2 General: Reports: 10 or more systems reviewed and unremarkable except in HPI and below Medications/Allergies Home Medications Medication Instructions Recorded Confirmed Last Taken Type alcaftadine 0.25 % eye drops See Rx Instructions .Route .COMPLEX 09/01/20 06/10/22 11/17/20 History (Lastacaft) loperamide 2 mg tablet (Imodium 2 mg PO Q6H PRN loose stool #30 05/12/22 06/10/22 Unknown Rx A-D) tabs emtricitabine 200 mg-tenofovir See Rx Instructions .Route 06/10/22 06/10/22 Unknown Rx disoproxil fumarate 300 mg tablet .COMPLEX #30 tabs albuterol sulfate 90 mcg/actuation 2 puff inhalation Q6H PRN 08/13/23 08/13/23 Unknown Rx aerosol inhaler (Ventolin HFA) Shortness Of Breath #8.5 grams budesonide-formoterol HFA 160 2 puff inhalation BID #10.2 grams 08/13/23 08/13/23 Unknown Rx mcg-4.5 mcg/actuation aerosol inhaler (Symbicort) chlorhexidine gluconate 0.12 % 15 ml buccal BID #473 mL 08/13/23 08/13/23 Unknown Rx mouthwash (Periogard) cholecalciferol (vitamin D3) 1,250 50,000 unit PO .weekly #4 caps 08/13/23 08/13/23 Unknown Rx mcg (50,000 unit) capsule dicyclomine 20 mg tablet 20 mg PO QID #120 tabs 08/13/23 08/13/23 Unknown Rx fluticasone propionate 50 2 spray intranasal DAILY #16 grams 08/13/23 08/13/23 Unknown Rx mcg/actuation nasal spray,suspension montelukast 10 mg tablet See Rx Instructions .Route 08/13/23 08/13/23 Unknown Rx .COMPLEX #30 tabs quetiapine 50 mg tablet 50 mg PO DAILY #30 tabs 08/13/23 08/13/23 Unknown Rx tiotropium bromide 2.5 2 puff inhalation DAILY #4 grams 08/13/23 08/13/23 Unknown Rx mcg/actuation mist for inhalation (Spiriva Respimat) ciprofloxacin HCl 500 mg tablet 500 mg PO Q12H #20 tabs 08/14/23 Unknown Rx ondansetron HCl 4 mg tablet 4 mg PO Q8H PRN nausea and 08/14/23 Unknown Rx vomiting #14 tabs dicyclomine 20 mg tablet 20 mg PO QID PRN abdominal pain 08/24/23 Unknown Rx #40 tabs ondansetron 4 mg disintegrating 4 mg PO Q8H PRN nausea and 08/24/23 Unknown Rx tablet vomiting #10 tabs Allergies Allergy/AdvReac Type Severity Reaction Status Date / Time aripiprazole [From Abilify] Allergy Severe anaphylaxsi Verified 08/13/23 10:13 s insect venom Allergy Severe respiratory Verified 08/13/23 10:13 distress Milk Containing Products Allergy Severe diahrrea Verified 08/13/23 10:13 (Dairy) [Milk Containing Products] peanut Allergy Severe anaphylaxsis, Verified 08/13/23 10:13 hives adhesive tape Allergy Mild rash Verified 08/13/23 10:13 morphine Allergy Mild itching Verified 08/13/23 10:13 Penicillins Allergy hives Verified 08/13/23 10:13 procaine [From Novocain] Allergy brain Verified 08/13/23 10:13 becomes foggy divalproex sodium AdvReac Mild confusion Verified 08/13/23 10:13 [From Depakote] latex AdvReac Mild rash, edema Verified 08/13/23 10:13 PFSH Acute 2 PFSH: Medical History Urinary hesitancy Calculus of kidney Anxiety Frequent headaches GERD (gastroesophageal reflux disease) Idiopathic thrombocytopenic purpura (ITP) Compression fracture of L1 vertebra with routine healing Other spondylosis with radiculopathy, lumbar region Displacement of lumbar intervertebral disc 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 Asthma Attention-deficit hyperactivity disorder, predominantly inattentive type Generalized anxiety disorder Bipolar disorder, unspecified Surgical History H/O esophagogastroduodenoscopy (11/20/20) Status post colonoscopy (11/20/20) History of hernia repair Hx of tonsillectomy History of splenectomy Family History Mother Cancer Diabetes Family/Other Cancer UNCLE Denies family history of Anesthesia complication Bleeding disorder Social History Smoking and tobacco/nicotine status: never used tobacco/nicotine Second hand smoke exposure: Yes Alcohol intake: never Substance/Drug Use: never Caregiver/support person: Yes Lives independently: No Household members: family Marital status: Single Number of children: 0 service: No Current occupational status: disabled Current gender identity: Male Special law needs: No Vitals/I&O/Wt Last Vital Signs Temp 97.9 F 08/28/23 14:29 Pulse 67 08/28/23 16:28 Resp 17 08/28/23 14:29 BP 146/62 08/28/23 16:28 Pulse Ox 94 08/28/23 16:28 O2 Del Method Room Air 08/28/23 16:28 Weight last 48 hrs Weight 235 lb Physical Exam 2 Narrative: General : Patient is well developed , no acute distress, oriented x3 Head : Normal cephalic, a-traumatic. Nose : Mucous membranes are without erythema. Lungs : Equal chest rise bilaterally, no use of accessory muscles, trachea is midline. CV : Rate and rhythm are normal. Abdomen : Soft, ND, NT, no g/r/m, No right upper quadrant tenderness and no Mckee sign Extremities : No edema. Upper extremities are normal bilaterally. Back : non-tender to palpation, no CVA tenderness. Data 08/28/23 15:38 08/28/23 15:38 A&P Assessment and plan (1) Morbid obesity: (2) Nausea vomiting and diarrhea: (3) Cholelithiasis: Qualifiers: Biliary obstruction: without biliary obstruction Cholecystitis presence: without cholecystitis Cholelithiasis location: gallbladder Qualified Code(s): K80.20 - Calculus of gallbladder without cholecystitis without obstruction (4) IBS (irritable bowel syndrome): Plan This is a 33-year-old male who presents to the hospital with history of chronic diarrhea nausea and vomiting. I was consulted for evaluation for possibility of acute cholecystitis. Laboratory workup done today is negative for elevation of the white count and LFTs, abdominal examination is completely benign with no abdominal tenderness in the right upper quadrant or Mckee sign. Ultrasound of the gallbladder show evidence of some gallbladder wall thickening but no other secondary signs concerning for acute cholecystitis. Patient's symptoms at the moment are not concordant with acute cholecystitis. Will patient had a component of probable symptomatic cholelithiasis and may be chronic cholecystitis as evidence with the thickening of the gallbladder, there is no indication for emergent laparoscopic cholecystectomy at this time. I have discussed with the patient and he agrees with this assessment, he will present to my clinic this week to discuss the possibility of an elective surgery. At the moment we will also discuss other potential causes for his symptoms, he takes high risk medication for the possibility of side effects including diarrhea and nausea and has been diagnosed with IBS in the past. I will explained to the patient during our clinic visit that there is a moderate likelihood that even after gallbladder surgery some of his symptoms will remain and if he is agreeable to this we will proceed with laparoscopic cholecystectomy as an elective procedure. In the interim I have recommended the patient to stay on a low-fat diet, increase his water intake and he can have nausea and pain medication as needed. In addition I recommend short course of Augmentin as this may help treat his diarrhea. -no indication for cholecystectomy in the emergent setting -f/u in clinic to discuss elective procedure -consider short course (5-7 days) of Augmentin -Consider pain medication and nausea medication as needed Coding Level of Care Code 83180 Diagnoses Morbid obesity E66.01 Nausea vomiting and diarrhea R11.2; R19.7 Cholelithiasis K80.20 Biliary obstruction: without biliary obstruction Cholecystitis presence: without cholecystitis Cholelithiasis location: gallbladder IBS (irritable bowel syndrome) K58.9
[2023-08-28 19:02] VITALS: BP 146/62; PULSE 67; RESP 17; TEMP 36.6; O2SAT 94
== END 2023-08-28 19:03 | disposition home or self-care (01) ==
PROVIDERS: Emergency Medicine; Emergency Provider Family Medicine; PCP Nurse Practitioner Family
DX: K80.20 Calculus of gallbladder without cholecystitis without obstruction (principal); R19.7 Diarrhea, unspecified; Z77.22 Contact with and (suspected) exposure to environmental tobacco smoke (acute) (chronic)
CPT/HCPCS: 36415; 76705; 80053; 83690; 85025; 96374; 99285; J1200; J7030

== ENCOUNTER 2023-09-13 10:53 | Inpatient (IN) | payer MEDICAID, SELFPAY ==
[2023-09-13 11:46] VITALS: BP 103/60; PULSE 139; RESP 16; TEMP 38; O2SAT 92
--- NOTE | 2023-09-13 13:13 | XRR_ITS ---
PROCEDURE INFORMATION: Exam: XR Chest Exam date and time: 09/13/2023 1:43 PM Age: 33 years old Clinical indication: Cough and dyspnea; Patient HX: Fever; SOB; Weakness TECHNIQUE: Imaging protocol: Radiologic exam of the chest. Views: 1 view. COMPARISON: CR XR chest 1V portable [id number] 02/12/2021 9:25 PM FINDINGS: Lungs: Stringy infiltrate is seen in the right base. Pleural spaces: Unremarkable. No pleural effusion. No pneumothorax. Heart/Mediastinum: Unremarkable. No cardiomegaly. Bones/joints: Unremarkable. Other findings: Limited inspiration. XR/XR chest 1V portable [id number] IMPRESSION: Stringy infiltrate is seen in the right base.
--- NOTE | 2023-09-13 13:41 | ED_ITS ---
HPI - Fever 2 General: Chief Complaint: Fever Stated Complaint: sob Time Seen by Provider: 09/13/23 12:30 Source: patient Mode of arrival: ambulatory History of Present Illness: 33-year-old male presents emergency room complaining of increasing shortness of breath fever and productive cough over the last several days along with nasal drainage and sinus congestion. We had seen the patient 2 weeks ago at that time he had biliary colic we consulted surgery and they decided to defer to outpatient discharged home on oral antibiotics. Patient denies any abdominal pain or diarrhea no dysuria urgency or frequency MD elicited complaint: fever and malaise Exacerbating factors: exertion Relieving factors: nothing Associated symptoms: Reports chills, nasal congestion and nausea; Deny abdominal pain, flank pain, chest pain, confusion, cough, diarrhea, dysuria, extremity pain, headache(s), myalgias, night sweats, rash, rhinorrhea, short of breath, sinus pain, stiffness, sore throat, vomiting or weight loss Treatments prior to arrival fever: none Review of Systems 2 Const: Reports: fever(s), chills, body aches, fatigue and malaise; Denies: night sweats ENMT: Reports: nasal congestion; Denies: sinus pain Card: Denies: chest pain Resp: Reports: dyspnea, productive cough and wheezing GI: Reports: nausea; Denies: abdominal pain, vomiting or diarrhea : Denies: flank pain, dysuria, urinary frequency or urinary urgency Musc: Denies: neck pain, back pain or extremity pain Skin/Breast: Denies: rash Neuro: Denies: headache(s) or confusion PFSH ED 2 PFSH: Medical History Urinary hesitancy Calculus of kidney Anxiety Frequent headaches GERD (gastroesophageal reflux disease) Idiopathic thrombocytopenic purpura (ITP) Compression fracture of L1 vertebra with routine healing Other spondylosis with radiculopathy, lumbar region Displacement of lumbar intervertebral disc 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 Asthma Attention-deficit hyperactivity disorder, predominantly inattentive type Generalized anxiety disorder Bipolar disorder, unspecified Surgical History H/O esophagogastroduodenoscopy (11/20/20) Status post colonoscopy (11/20/20) History of hernia repair Hx of tonsillectomy History of splenectomy Family History Mother Cancer Diabetes Family/Other Cancer UNCLE Denies family history of Anesthesia complication Bleeding disorder Social History Smoking and tobacco/nicotine status: never used tobacco/nicotine Second hand smoke exposure: Yes Alcohol intake: never Substance/Drug Use: never Caregiver/support person: Yes Lives independently: No Household members: family Marital status: Single Number of children: 0 service: No Current occupational status: disabled Current gender identity: Male Special law needs: No Physical Exam 2 Const: GENERAL APPEARANCE: cooperative and comfortable O RIENTATION/CONSCIOUSNESS: Yes awake, Yes oriented to person, Yes oriented to place and Yes oriented to time HENMT: COMMON NORMALS: normocephalic, atraumatic and hearing grossly normal bilaterally HEAD & SCALP: normocephalic and atraumatic Resp: AUSCULTATION: rales on the right at the base Cardio: COMMON NORMALS: regular rhythm and No murmurs present (Cardio) R ATE: tachycardic RHYTHM: regular rhythm GI: COMMON NORMALS: Soft to palpation and No hepatosplenomegaly present A USCULTATION: Yes normoactive bowel sounds PALPATION: Yes Soft to palpation, No Tenderness to palpation present (GI), No Guarding due to palpation present (GI) and Yes No hepatosplenomegaly present Extremity: COMMON NORMALS: normal to inspection, capillary refill normal, no clubbing, cyanosis or edema, no calf tenderness and no pedal edema Neuro: SENSORIUM/ORIENTATION: Yes oriented to person, Yes oriented to place and Yes oriented to time Skin: COMMON NORMALS: no rashes or lesions noted GENERAL SKIN EXAM: no rashes or lesions noted Course 2 Vital Signs: Vital signs: Vital Signs Temperature 100.4 F H 09/13/23 11:46 Pulse Rate 139 H 09/13/23 11:46 Respiratory Rate 16 09/13/23 11:46 Blood Pressure 103/60 09/13/23 11:46 Pulse Oximetry 92 09/13/23 11:46 MDM - Fever Medical Decision Making Tachycardic with borderline O2 sat and temperature. Cultures done including sputum and blood started on ceftriaxone and Zithromax chest x-ray shows right lower lobe pneumonia. Patient is also recently had several episodes of biliary colic with radiographic evidence of mild cholecystitis but no elevation of white counts it has been deferred to the outpatient this point gallbladder ultrasound repeated today to reevaluate although his liver functions have normalized. Gallbladder wall shows increased thickening. Liver functions at this time are normal. Significant leukocytosis noted. Discussed with hospitalist orders written Medical Records I reviewed the patient's medical records. Lab Data I reviewed the patient's lab results. 09/13/23 13:46 09/13/23 13:46 Radiology Impressions Chest X-Ray 09/13/23 13:13 IMPRESSION: Stringy infiltrate is seen in the right base. Gallbladder Ultrasound 09/13/23 13:42 IMPRESSION: Cholelithiasis is again seen. Increasing thickness of the gallbladder wall currently measuring about 8 mm. Laboratory Results WBC 26.48 10^3/uL (3.29-11.43) H 09/13/23 13:46 RBC 4.76 10^6/uL (3.85-5.65) 09/13/23 13:46 Hgb 14.80 g/dL (11.27-16.99) 09/13/23 13:46 Hct 43.6 % (37-53) 09/13/23 13:46 MCV 91.6 fl (82-101) 09/13/23 13:46 MCH 31.1 pg (27-33) 09/13/23 13:46 MCHC 33.9 g/dL (30-55) 09/13/23 13:46 RDW 14.6 % (12.1-15.1) 09/13/23 13:46 Plt Count 460 10^3/cmm (157-399) H 09/13/23 13:46 MPV 10.6 fL (7.4-10.4) H 09/13/23 13:46 Neut % (Auto) 75.5 % 09/13/23 13:46 Lymph % (Auto) 13.3 % 09/13/23 13:46 [place] % (Auto) 10.0 % 09/13/23 13:46 Eos % (Auto) 0.3 % 09/13/23 13:46 Baso % (Auto) 0.6 % 09/13/23 13:46 Neut # (Auto) 19.99 10^3/uL (1.8-7.7) H 09/13/23 13:46 Lymph # (Auto) 3.5 10^3/uL (0.8-4.8) 09/13/23 13:46 [place] # (Auto) 2.7 10^3/uL (0.2-0.9) H 09/13/23 13:46 Eos # (Auto) 0.1 10^3/uL (0.0-0.8) 09/13/23 13:46 Baso # (Auto) 0.2 10^3/uL (0.0-0.1) H 09/13/23 13:46 Nucleated RBC % (auto) 0 % 09/13/23 13:46 Nucleated RBCs # 0.0 /100WBC 09/13/23 13:46 Sodium 135 mmol/L (136-145) L 09/13/23 13:46 Potassium 3.7 mmol/L (3.5-5.1) 09/13/23 13:46 Chloride 100 mmol/L (98-107) 09/13/23 13:46 Carbon Dioxide 23 mmol/L (22-29) 09/13/23 13:46 Anion Gap 15.7 (5-19) 09/13/23 13:46 BUN 8 mg/dL (6-20) 09/13/23 13:46 Creatinine 0.7 mg/dL (0.7-1.2) 09/13/23 13:46 GFR Calculation 130.7 mL/min (90-130) H 09/13/23 13:46 Glucose 99 mg/dL (65-115) 09/13/23 13:46 Calculated Osmolality 278 mOsm/kg (285-295) L 09/13/23 13:46 Lactic Acid 1.2 mmol/L (0.5-2.2) 09/13/23 13:46 Calcium 8.6 mg/dL (8.5-10.5) 09/13/23 13:46 Total Bilirubin 0.7 mg/dL (0.15-1.2) 09/13/23 13:46 AST 21 U/L (0-40) 09/13/23 13:46 ALT 21 U/L (0-41) 09/13/23 13:46 Alkaline Phosphatase 107 U/L (40-130) 09/13/23 13:46 Total Protein 7.2 g/dL (6.6-8.7) 09/13/23 13:46 Albumin 3.9 g/dL (3.5-5.2) 09/13/23 13:46 Globulin 3.3 g/dL (1.3-4.6) 09/13/23 13:46 All radiology interpretation(s) finalized by discharge Discharge Plan Discharge Patient Disposition: Admitted As Inpatient Admit Provider: Roselyn Marquez Clinical Impression: Pneumonia Condition: Stable Coding Level of Care Code ED Striper Spr[employer] for Travis Landrum
--- NOTE | 2023-09-13 13:42 | USR_ITS ---
PROCEDURE INFORMATION: Exam: US Abdomen, Limited; Right Upper Quadrant Exam date and time: 09/13/2023 2:16 PM Age: 33 years old Clinical indication: Abdominal pain; Generalized; Additional info: Ab pain TECHNIQUE: Imaging protocol: Real time ultrasound of the abdomen with image documentation. Limited exam focused on the right upper quadrant. COMPARISON: US gall bladder [id number] 08/28/2023 4:55 PM FINDINGS: Liver: Normal. No masses. Normal visualized hepatic vasculature. Gallbladder: Gallstones are again seen. There is either a single large gallstone or a grouping of gallstones in the gallbladder neck. Increased thickening of the gallbladder wall when compared to the prior examination currently 8 mm in thickness of previously 5 mm in thickness. No pericholecystic fluid.. Biliary ducts: Normal. No stones. No dilation. Pancreas: Obscured by overlying bowel.. Right kidney: Normal. No mass. No hydronephrosis. Other findings: The aorta and inferior vena cava are unremarkable as visualized. US/US gall bladder [id number] IMPRESSION: Cholelithiasis is again seen. Increasing thickness of the gallbladder wall currently measuring about 8 mm.
[2023-09-13] MEDS: sodium chloride 0.9% 1,000 ML 999 ML IV ×2 (13:43→15:48)
[2023-09-13 13:54] LABS: Basophils # 0.2 10^3/uL (0.0-0.1); Basophils % 0.6 %; Eosinophils # 0.1 10^3/uL (0.0-0.8); Eosinophils % 0.3 %; Hematocrit 43.6 % (37-53); Lymphocytes # 3.5 10^3/uL (0.8-4.8); Lymphocytes % 13.3 %; Mean Corpuscular HGB Conc 33.9 g/dL (30-55); Mean Corpuscular Hemoglobin 31.1 pg (27-33); Mean Corpuscular Volume 91.6 fl (82-101); Mean Platelet Volume 10.6 fL (7.4-10.4); Monocytes # 2.7 10^3/uL (0.2-0.9); Neutrophils # 19.99 10^3/uL (1.8-7.7); Neutrophils % 75.5 %; Nucleated Red Blood Cells % 0 %; Platelet Count 460 10^3/cmm (157-399); Red Blood Count 4.76 10^6/uL (3.85-5.65); Red Cell Distribution Width 14.6 % (12.1-15.1); White Blood Count 26.48 10^3/uL (3.29-11.43)
[2023-09-13 14:14] LABS: Alanine Aminotransferase 21 U/L (0-41); Albumin Level 3.9 g/dL (3.5-5.2); Alkaline Phosphatase 107 U/L (40-130); Anion Gap 15.7 (5-19); Aspartate Amino Transferase 21 U/L (0-40); Blood Urea Nitrogen 8 mg/dL (6-20); Calcium 8.6 mg/dL (8.5-10.5); Carbon Dioxide 23 mmol/L (22-29); Chloride 100 mmol/L (98-107); Creatinine Clr Calc Pharmacy 171.6043; Globulin 3.3 g/dL (1.3-4.6); Glomerular Filtration Rate 130.7 mL/min (90-130); Glucose 99 mg/dL (65-115); Lactic Sepsis W/Reflex 1.2 mmol/L (0.5-2.2); Osmolality Calculated 278 mOsm/kg (285-295); Potassium 3.7 mmol/L (3.5-5.1); Sodium 135 mmol/L (136-145); Total Bilirubin 0.7 mg/dL (0.15-1.2); Total Protein 7.2 g/dL (6.6-8.7)
--- NOTE | 2023-09-13 15:00 | P.HP_ITS ---
Providers/Chief Complaint 2 Primary Care Provider: SHANE Gomes Chief Complaint: sob History of Present Illness Willi Meadows is a 33 year old male with past medical history of chronic cholecystitis, anxiety, GERD, asthma presented to the hospital for increasing shortness of breath and productive cough over the last several days along with nasal discharge, sinus congestion. Respiratory viral panel positive for enterorhinovirus. WBC 26,000 chest x-ray shows right lower lobe pneumonia. Patient will be admitted at this time. Denies any other complaints. Medications/Allergies Home Medications Medication Instructions Recorded Confirmed Last Taken Type alcaftadine 0.25 % eye drops See Rx Instructions .Route .COMPLEX 09/01/20 06/10/22 11/17/20 History (Lastacaft) loperamide 2 mg tablet (Imodium 2 mg PO Q6H PRN loose stool #30 05/12/22 06/10/22 Unknown Rx A-D) tabs emtricitabine 200 mg-tenofovir See Rx Instructions .Route 06/10/22 06/10/22 Unknown Rx disoproxil fumarate 300 mg tablet .COMPLEX #30 tabs albuterol sulfate 90 mcg/actuation 2 puff inhalation Q6H PRN 08/13/23 08/13/23 Unknown Rx aerosol inhaler (Ventolin HFA) Shortness Of Breath #8.5 grams budesonide-formoterol HFA 160 2 puff inhalation BID #10.2 grams 08/13/23 08/13/23 Unknown Rx mcg-4.5 mcg/actuation aerosol inhaler (Symbicort) chlorhexidine gluconate 0.12 % 15 ml buccal BID #473 mL 08/13/23 08/13/23 Unknown Rx mouthwash (Periogard) cholecalciferol (vitamin D3) 1,250 50,000 unit PO .weekly #4 caps 08/13/23 08/13/23 Unknown Rx mcg (50,000 unit) capsule dicyclomine 20 mg tablet 20 mg PO QID #120 tabs 08/13/23 08/13/23 Unknown Rx fluticasone propionate 50 2 spray intranasal DAILY #16 grams 08/13/23 08/13/23 Unknown Rx mcg/actuation nasal spray,suspension montelukast 10 mg tablet See Rx Instructions .Route 08/13/23 08/13/23 Unknown Rx .COMPLEX #30 tabs quetiapine 50 mg tablet 50 mg PO DAILY #30 tabs 08/13/23 08/13/23 Unknown Rx tiotropium bromide 2.5 2 puff inhalation DAILY #4 grams 08/13/23 08/13/23 Unknown Rx mcg/actuation mist for inhalation (Spiriva Respimat) ciprofloxacin HCl 500 mg tablet 500 mg PO Q12H #20 tabs 08/14/23 Unknown Rx ondansetron HCl 4 mg tablet 4 mg PO Q8H PRN nausea and 08/14/23 Unknown Rx vomiting #14 tabs dicyclomine 20 mg tablet 20 mg PO QID PRN abdominal pain 08/24/23 Unknown Rx #40 tabs ondansetron 4 mg disintegrating 4 mg PO Q8H PRN nausea and 08/24/23 Unknown Rx tablet vomiting #10 tabs Allergies Allergy/AdvReac Type Severity Reaction Status Date / Time aripiprazole [From Abilify] Allergy Severe anaphylaxsi Verified 08/13/23 10:13 s insect venom Allergy Severe respiratory Verified 08/13/23 10:13 distress Milk Containing Products Allergy Severe diahrrea Verified 08/13/23 10:13 (Dairy) [Milk Containing Products] peanut Allergy Severe anaphylaxsis, Verified 08/13/23 10:13 hives adhesive tape Allergy Mild rash Verified 08/13/23 10:13 morphine Allergy Mild itching Verified 08/13/23 10:13 Penicillins Allergy hives Verified 08/13/23 10:13 procaine [From Novocain] Allergy brain Verified 08/13/23 10:13 becomes foggy divalproex sodium AdvReac Mild confusion Verified 08/13/23 10:13 [From Depakote] latex AdvReac Mild rash, edema Verified 08/13/23 10:13 PFSH Acute 2 PFSH: Medical History Urinary hesitancy Calculus of kidney Anxiety Frequent headaches GERD (gastroesophageal reflux disease) Idiopathic thrombocytopenic purpura (ITP) Compression fracture of L1 vertebra with routine healing Other spondylosis with radiculopathy, lumbar region Displacement of lumbar intervertebral disc 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 Asthma Attention-deficit hyperactivity disorder, predominantly inattentive type Generalized anxiety disorder Bipolar disorder, unspecified Surgical History H/O esophagogastroduodenoscopy (11/20/20) Status post colonoscopy (11/20/20) History of hernia repair Hx of tonsillectomy History of splenectomy Family History Mother Cancer Diabetes Family/Other Cancer UNCLE Denies family history of Anesthesia complication Bleeding disorder Social History Smoking and tobacco/nicotine status: never used tobacco/nicotine Second hand smoke exposure: Yes Alcohol intake: never Substance/Drug Use: never Caregiver/support person: Yes Lives independently: No Household members: family Marital status: Single Number of children: 0 service: No Current occupational status: disabled Current gender identity: Male Special law needs: No Vitals/I&O/Wt Last Vital Signs Temp 100.4 F H 09/13/23 11:46 Pulse 139 H 09/13/23 11:46 Resp 16 09/13/23 11:46 BP 103/60 09/13/23 11:46 Pulse Ox 92 09/13/23 11:46 Weight last 48 hrs Weight 107.955 kg Physical Exam 2 Narrative: General: Alert oriented x3, patient seen laying in bed appearing comfortable, room air. HEENT: Normocephalic, atraumatic, EOMI, Cardio: Regular rate rhythm, normal S1-S2, Respiratory: Good bilateral air entry, no wheezes no rhonchi appreciated GI: Abdomen soft, nontender, nondistended, bowel sounds + Behavior: Appropriate and cooperative Extremities: No edema Data 09/13/23 13:46 09/13/23 13:46 A&P Assessment and plan (1) Generalized anxiety disorder: (2) GERD (gastroesophageal reflux disease): Qualifiers: Esophagitis presence: without esophagitis Qualified Code(s): K21.9 - Gastro-esophageal reflux disease without esophagitis (3) Pneumonia: (4) Obstructive sleep apnea: Plan #Right lower lobe pneumonia #Chronic cholecystitis #Bipolar disorder, anxiety ? Placed on ceftriaxone azithromycin ? Patient positive for enterorhinovirus ? Tylenol for fever ? Zofran for nausea ? Continue home medications ? DuoNebs every 6 hours as needed ? Sputum culture Gram stain ? Normal saline 100 cc/h. Patient has sinus tachycardia secondary to above ? Check CBC CMP in AM. Full code DVT prophylaxis: Heparin SQ twice daily Attestations 2 Medical Necessity Statement*: Less than 2 midnight stay for management of right lower lobe pneumonia. Diagnoses Generalized anxiety disorder F41.1 Gastroesophageal reflux disease without esophagitis K21.9 Esophagitis presence: without esophagitis Pneumonia J18.9 Obstructive sleep apnea G47.33
[2023-09-13 15:30] LABS: Lactic Sepsis W/Reflex 0.9 mmol/L (0.5-2.2)
[2023-09-13 15:33] LABS: Procalcitonin 0.23 ng/mL (0-0.5)
[2023-09-13] MEDS: cefTRIAXone 1,000 MG in sodium chloride 0.9% (plus) 50 ML 100 MG IV ×2 (15:48→20:28)
[2023-09-13 16:00] LABS: Adenovirus Not Detected (NOT DETECT); Chlamydia Pneumoniae Not Detected (NOT DETECT); Coronavirus 229E,HKU1,NL63,OC4 Not Detected (NOT DETECT); Human Metapneumovirus Not Detected (NOT DETECT); Human Rhinovirus/Enterovirus Detected (NOT DETECT); Influenza A Not Detected (NOT DETECT); Influenza A H1 Not Detected (NOT DETECT); Influenza A H1-2009 Not Detected (NOT DETECT); Influenza A H3 Not Detected (NOT DETECT); Influenza B Not Detected (NOT DETECT); Mycoplasma Pneumoniae Not Detected (NOT DETECT); Parainfluenza Virus Type 1 Not Detected (NOT DETECT); Parainfluenza Virus Type 2 Not Detected (NOT DETECT); Parainfluenza Virus Type 3 Not Detected (NOT DETECT); Parainfluenza Virus Type 4 Not Detected (NOT DETECT); Respiratory Syncytial Virus A Not Detected (NOT DETECT); Respiratory Syncytial Virus B Not Detected (NOT DETECT); SARS-COV-2 Not Detected (NOT DETECT)
[2023-09-13] MEDS: azithromycin 500 MG in sodium chloride 0.9% 250 ML 250 MG IV ×2 (16:18→22:13)
[2023-09-13 17:46] VITALS: O2SAT 93
[2023-09-13 18:04] VITALS: BP 103/64; PULSE 112; RESP 17; TEMP 37.1; O2SAT 91
[2023-09-13 18:15] VITALS: BMI 40.8
[2023-09-13 19:49] VITALS: BP 139/67; PULSE 107; RESP 17; TEMP 37; O2SAT 93
[2023-09-13] MEDS: ipratropium-albuterol 3 mL Neb INHALATION (20:24)
[2023-09-13] MEDS: budesonide 0.5 mg/2 mL Neb INHALATION (20:24)
[2023-09-13 20:25] VITALS: PULSE 115; RESP 22; O2SAT 95
[2023-09-13] MEDS: pantoprazole 40 mg SDV IVP (20:27)
[2023-09-13] MEDS: heparin 5,000 unit/mL INJ 1 mL 5000 UNIT SUBCUT (20:27)
[2023-09-13] MEDS: sodium chloride 0.9% 1,000 ML 125 ML IV (20:28)
[2023-09-13 20:38] VITALS: PULSE 110
[2023-09-13] MEDS: quetiapine 25 mg Tablet 50 MG PO (23:08)
[2023-09-14] VITALS (12 sets, daily range): BP systolic 106–128; BP diastolic 54–78; PULSE 83–108; RESP 16–19; TEMP 36.4–37.3; O2SAT 91–98
[2023-09-14] MEDS: ipratropium-albuterol 3 mL Neb INHALATION ×4 (01:56→21:05)
[2023-09-14 03:34] LABS: Basophils # 0.2 10^3/uL (0.0-0.1); Basophils % 0.5 %; Eosinophils # 0.1 10^3/uL (0.0-0.8); Eosinophils % 0.2 %; Hematocrit 39.1 % (37-53); Lymphocytes # 7.5 10^3/uL (0.8-4.8); Lymphocytes % 23.9 %; Mean Corpuscular HGB Conc 33.5 g/dL (30-55); Mean Corpuscular Hemoglobin 31.4 pg (27-33); Mean Corpuscular Volume 93.8 fl (82-101); Mean Platelet Volume 11.2 fL (7.4-10.4); Monocytes # 3.3 10^3/uL (0.2-0.9); Monocytes % 10.3 %; Neutrophils # 20.22 10^3/uL (1.8-7.7); Neutrophils % 64.5 %; Nucleated Red Blood Cells % 0 %; Platelet Count 421 10^3/cmm (157-399); Red Blood Count 4.17 10^6/uL (3.85-5.65)
[2023-09-14] MEDS: sodium chloride 0.9% 1,000 ML 125 ML IV ×3 (03:41→21:10)
[2023-09-14 03:49] LABS: Alanine Aminotransferase 15 U/L (0-41); Albumin Level 3.4 g/dL (3.5-5.2); Alkaline Phosphatase 102 U/L (40-130); Anion Gap 14.2 (5-19); Aspartate Amino Transferase 15 U/L (0-40); Blood Urea Nitrogen 9 mg/dL (6-20); Carbon Dioxide 23 mmol/L (22-29); Chloride 106 mmol/L (98-107); Creatinine Clr Calc Pharmacy 152.5688; Globulin 2.8 g/dL (1.3-4.6); Glucose 77 mg/dL (65-115); Magnesium 1.8 mg/dL (1.7-2.3); Osmolality Calculated 287 mOsm/kg (285-295); Potassium 3.2 mmol/L (3.5-5.1); Sodium 140 mmol/L (136-145); Total Bilirubin 0.8 mg/dL (0.15-1.2); Total Protein 6.2 g/dL (6.6-8.7)
[2023-09-14 03:54] LABS: White Blood Count 31.41 10^3/uL (3.29-11.43)
--- NOTE | 2023-09-14 07:17 | PC.NURSE ---
Notified Dr. Lopez of patient's allergy to morphine. Dr. Lopez stated to discontinue morphine order. Notified Dr. Lopez of WBC of 31.4 at 0411, no new orders received.
[2023-09-14] MEDS: budesonide 0.5 mg/2 mL Neb INHALATION ×2 (08:12→21:05)
[2023-09-14] MEDS: heparin 5,000 unit/mL INJ 1 mL 5000 UNIT SUBCUT ×2 (08:36→20:44)
--- NOTE | 2023-09-14 08:41 | CTR_ITS ---
PROCEDURE INFORMATION: Exam: CT Chest With Contrast; Diagnostic Exam date and time: 09/14/2023 9:07 AM Age: 33 years old Clinical indication: Abdominal pain; Epigastric; Other: Worsening leukocytosis, chronic cholecystitis, pneumonia TECHNIQUE: Imaging protocol: Diagnostic computed tomography of the chest with contrast. Total images: 1725 Radiation optimization: All CT scans at this facility use at least one of these dose optimization techniques: automated exposure control; mA and/or kV adjustment per patient size (includes targeted exams where dose is matched to clinical indication); or iterative reconstruction. Contrast material: OMNI 350; Contrast volume: 100 ml; Contrast route: INTRAVENOUS (IV); COMPARISON: CR (CHEST, ) 09/13/2023 1:43 PM RADIATION DOSE METRICS: Total DLP (mGy-cm): 1325.43 FINDINGS: Lungs: Irregular areas of lung consolidation and minimal ground-glass opacity extending from the right hilar area into the upper middle and lower lobes felt to represent pneumonia and atelectasis. Pleural spaces: Unremarkable. No pneumothorax. No pleural effusion. Heart: Unremarkable. No cardiomegaly. No pericardial effusion. Lymph nodes: Unremarkable. No enlarged lymph nodes. Vasculature: Unremarkable. No aortic aneurysm. Gallbladder and bile ducts: Cholelithiasis is present without cholecystitis. No gallbladder wall thickening or pericholecystic fluid collection. Spleen: Prior splenectomy. Bones/joints: Unremarkable. No acute fracture. Soft tissues: Unremarkable. PROCEDURE INFORMATION: Exam: CT Abdomen And Pelvis With Contrast Exam date and time: 09/14/2023 9:07 AM Age: 33 years old Clinical indication: Abdominal pain; Epigastric; Other: Worsening leukocytosis, chronic cholecystitis, pneumonia TECHNIQUE: Imaging protocol: Computed tomography of the abdomen and pelvis with contrast. Radiation optimization: All CT scans at this facility use at least one of these dose optimization techniques: automated exposure control; mA and/or kV adjustment per patient size (includes targeted exams where dose is matched to clinical indication); or iterative reconstruction. Contrast material: OMNI 350; Contrast volume: 100 ml; Contrast route: INTRAVENOUS (IV); COMPARISON: CT abdomen pelvis w con* [id number] 08/14/2023 2:24 AM RADIATION DOSE METRICS: Total DLP (mGy-cm): 1325.43 FINDINGS: Liver: Normal. No mass. Gallbladder and bile ducts: Cholelithiasis is present without cholecystitis. No gallbladder wall thickening or pericholecystic fluid collection. Pancreas: Normal. No ductal dilation. Spleen: Prior splenectomy. Adrenal glands: Normal. No mass. Kidneys and ureters: Normal. No hydronephrosis. Stomach and bowel: Unremarkable. No obstruction. No mucosal thickening. Appendix: No evidence of appendicitis. Intraperitoneal space: Unremarkable. No free air. No significant fluid collection. Vasculature: Incidental venous phlebolith noted. Minimal soft plaque in proximal SMA causing less than 50% stenosis. Lymph nodes: Unremarkable. No enlarged lymph nodes. Urinary bladder: Unremarkable as visualized. Reproductive: Unremarkable as visualized. Bones/joints: Compression fracture at L1 chronic Soft tissues: Unremarkable. CT/CT chest abdpel w/*[id number] IMPRESSION: 1. Irregular areas of lung consolidation and minimal ground-glass opacity extending from the right hilar area into the upper middle and lower lobes felt to represent pneumonia and atelectasis. 2. Cholelithiasis is present without cholecystitis. No gallbladder wall thickening or pericholecystic fluid collection. IMPRESSION: Cholelithiasis is present without cholecystitis. No gallbladder wall thickening or pericholecystic fluid collection.
--- NOTE | 2023-09-14 10:42 | P.PN_ITS ---
Subjective 2 Subjective: seen today no acute events overnight wbc [id number] this am requesting to have cholecystectomy inpatient during this stay i explained to pt with wbc [id number] and active pneumonia, he is not a candidate for elective surgery Vitals/I&O/Wt Last Vital Signs Temp 97.6 F 09/14/23 07:39 Pulse 94 09/14/23 08:14 Resp 16 09/14/23 08:14 BP 108/65 09/14/23 07:39 Pulse Ox 93 09/14/23 08:14 O2 Del Method Room Air 09/14/23 08:14 09/13/23 09/14/23 09/14/23 22:59 06:59 14:59 Intake Total 2350 / 2350 1152.083 / 3502.083 Balance 2350 / 2350 1152.083 / 3502.083 Weight last 48 hrs Weight 111.13 kg Weight 111.175 kg Weight 107.955 kg Physical Exam 2 Narrative: General: Alert oriented x3, patient seen laying in bed appearing comfortable, room air. HEENT: Normocephalic, atraumatic, EOMI, Cardio: Regular rate rhythm, normal S1-S2, Respiratory: Good bilateral air entry, no wheezes no rhonchi appreciated GI: Abdomen soft, nontender, nondistended, bowel sounds + Behavior: Appropriate and cooperative Extremities: No edema Data 09/14/23 02:40 09/14/23 02:40 Micro: Microbiology 09/13/23 15:06 Blood Culture - Preliminary Blood SPECIMEN COLLECTED 09/13/23 15:01 Blood Culture - Preliminary Blood SPECIMEN COLLECTED A&P Assessment and plan (1) Generalized anxiety disorder: (2) GERD (gastroesophageal reflux disease): Qualifiers: Esophagitis presence: without esophagitis Qualified Code(s): K21.9 - Gastro-esophageal reflux disease without esophagitis (3) Pneumonia: (4) Obstructive sleep apnea: Plan #Right lower lobe pneumonia #Chronic cholecystitis #Bipolar disorder, anxiety ? Placed on ceftriaxone azithromycin ? Patient positive for enterorhinovirus ? Tylenol for fever ? Zofran for nausea ? Continue home medications ? DuoNebs every 6 hours as needed ? Sputum culture Gram stain ? Normal saline 100 cc/h. ? Check CBC CMP in AM. - Check ct c/a/p Full code DVT prophylaxis: Heparin SQ twice daily Attestations 2 Medical Necessity Statement*: Less than 2 midnight stay for management of right lower lobe pneumonia. Diagnoses Generalized anxiety disorder F41.1 Gastroesophageal reflux disease without esophagitis K21.9 Esophagitis presence: without esophagitis Pneumonia J18.9 Obstructive sleep apnea G47.33
[2023-09-14] MEDS: cefTRIAXone 1,000 MG in sodium chloride 0.9% (plus) 100 ML 200 MG IV (20:40)
[2023-09-14] MEDS: pantoprazole 40 mg SDV IVP (20:40)
[2023-09-14] MEDS: quetiapine 25 mg Tablet 50 MG PO (20:44)
[2023-09-14] MEDS: azithromycin 500 MG in sodium chloride 0.9% 250 ML 250 MG IV (22:54)
[2023-09-15] VITALS (7 sets, daily range): BP systolic 90–118; BP diastolic 58–78; PULSE 79–104; RESP 15–17; TEMP 36.7–36.9; O2SAT 93–95
[2023-09-15] MEDS: sodium chloride 0.9% 1,000 ML 125 ML IV (05:44)
[2023-09-15 06:39] LABS: Basophils # 0.1 10^3/uL (0.0-0.1); Basophils % 0.5 %; Eosinophils # 0.5 10^3/uL (0.0-0.8); Eosinophils % 2.9 %; Hematocrit 37.7 % (37-53); Lymphocytes # 4.3 10^3/uL (0.8-4.8); Mean Corpuscular Hemoglobin 31.6 pg (27-33); Mean Corpuscular Volume 93.1 fl (82-101); Mean Platelet Volume 10.9 fL (7.4-10.4); Monocytes # 1.6 10^3/uL (0.2-0.9); Monocytes % 9.8 %; Neutrophils # 10.03 10^3/uL (1.8-7.7); Neutrophils % 60.5 %; Nucleated Red Blood Cells % 0 %; Platelet Count 411 10^3/cmm (157-399); Red Blood Count 4.05 10^6/uL (3.85-5.65); Red Cell Distribution Width 14.9 % (12.1-15.1); White Blood Count 16.58 10^3/uL (3.29-11.43)
[2023-09-15 06:56] LABS: Anion Gap 12.7 (5-19); Blood Urea Nitrogen 6 mg/dL (6-20); Calcium 8.1 mg/dL (8.5-10.5); Carbon Dioxide 23 mmol/L (22-29); Chloride 111 mmol/L (98-107); Creatinine Clr Calc Pharmacy 175.2977; Glomerular Filtration Rate 130.7 mL/min (90-130); Glucose 89 mg/dL (65-115); Magnesium 1.9 mg/dL (1.7-2.3); Osmolality Calculated 293 mOsm/kg (285-295); Potassium 3.7 mmol/L (3.5-5.1); Sodium 143 mmol/L (136-145)
[2023-09-15] MEDS: emtricitabine/tenofovir 200 mg-300 mg TABLET 1 TAB PO (08:12)
[2023-09-15] MEDS: heparin 5,000 unit/mL INJ 1 mL 5000 UNIT SUBCUT (08:12)
[2023-09-15] MEDS: budesonide 0.5 mg/2 mL Neb INHALATION (08:26)
[2023-09-15] MEDS: ipratropium-albuterol 3 mL Neb INHALATION (08:26)
--- NOTE | 2023-09-15 09:17 | PC.CHAP ---
Pastoral Care Encounter/Spiritual Assessment Type of Contact [] Declined housing court judge visit [] Patient/Family/Request visit [] Outpatient visit [] Follow-up visit [] Physician referral [] Code/Alert [x] Routine visit [] Staff referral [] Actively dying [] Patient sleeping [] Family support [] [] Out of room [] Palliative care [] [] Receiving care in room [] Pre-surgical visit [] Trauma [] Long length of stay [] ICU visit [] Other: Relational/Emotional Strength [] Patient feels connected with others/family/visitors/staff [] Distress [] Loneliness/isolation [] Abandonment Spirituality of Patient [] Person of Yelena [] Attends Judaism of their Yelena [] Believes in Prayer [] Reads Bible or Adventism materials [] There are Spiritual issues to be addressed Promotions Executive Interventions [x] Prayer [] Active listening [] Non-anxious presence [] Spiritual/emotional support [] Crisis/trauma care [] Spiritual counseling [] Bereavement support [] Provided bereavement packet [] Provided Bible/devotional materials [] Provided toy/stuffed animal, coloring book to patient or family member [] Provided Communion [] Anointing/[place] [] Salvation [] Completed spiritual assessment [] Other: Impact on Illness or Injury [] Angry [] Fearful [] Anxious [] Often cries [] Exhaustion [] Unable to work [] Unable to attend confucianist [] Unable to walk/stand [] Unable to read [] Unable to drive [] Unable to eat/drink [] Unable to sleep [] Unable to be with family [] Patient intubated [] Other: Summary precaution Time spent with patient
--- NOTE | 2023-09-15 13:22 | P.DS_ITS ---
Discharge Providers Date of Admission: 09/14/23 15:00 Date of Discharge: September 15, 2023 Attending Provider at Admission: Roselyn Marquez MD Attending Provider at Discharge: Stefan Echavarria MD Primary Care Provider: SHANE Gomes Diagnoses at Discharge Discharge Diagnosis (1) Generalized anxiety disorder: Status: Acute (2) GERD (gastroesophageal reflux disease): Status: Chronic Qualifiers: Esophagitis presence: without esophagitis Qualified Code(s): K21.9 - Gastro-esophageal reflux disease without esophagitis (3) Pneumonia: Status: Acute (4) Obstructive sleep apnea: Status: Acute Reason for Visit Reason for Visit: sob Brief History: History as per HPI: Willi Meadows is a 33 year old male with past medical history of chronic cholecystitis, anxiety, GERD, asthma presented to the hospital for increasing shortness of breath and productive cough over the last several days along with nasal discharge, sinus congestion. Respiratory viral panel positive for enterorhinovirus. WBC 26,000 chest x-ray shows right lower lobe pneumonia. Patient will be admitted at this time. Denies any other complaints. Hospital Course Hospital Course Patient was admitted to the hospital further evaluation and management of asthma exacerbation in setting of rhinovirus infection and concerns for bacterial pneumonia. He was started on broad-spectrum antibiotics along with inhalation therapy. Patient responded well to the treatment with improvement in leukocytosis and has remained on room air both at rest and ambulation. He has been discharged in hemodynamically stable condition on oral cefdinir and Levaquin for next 5 days along with 5 days of oral prednisone. Physical Exam Narrative: General: Alert oriented x3, patient seen laying in bed appearing comfortable, room air. HEENT: Normocephalic, atraumatic, EOMI, Cardio: Regular rate rhythm, normal S1-S2, Respiratory: Good bilateral air entry, no wheezes no rhonchi appreciated GI: Abdomen soft, nontender, nondistended, bowel sounds + Behavior: Appropriate and cooperative Extremities: No edema Discharge Data Studies Completed and Pending Completed Studies During Hospitalization Category Date Time Status CT chest abdomen pelvis [CT chest abdpel w/*[id number] Cat Scan 09/14/23 08:41 Completed ] Stat XR chest 1V portable [id number] Stat Exams 09/13/23 13:13 Completed US gall bladder [id number] Stat Ultrasound 09/13/23 13:42 Completed Pending at discharge Category Date Time Status Blood Culture Stat Lab 09/13/23 15:06 Results HIV 1&2 Antigen & Antibody Routine Lab 09/15/23 13:02 Ordered Sputum Culture and Gram Stain Stat Lab 09/13/23 14:20 Uncollected Radiology Impressions Chest X-Ray 09/13/23 13:13 IMPRESSION: Stringy infiltrate is seen in the right base. Gallbladder Ultrasound 09/13/23 13:42 IMPRESSION: Cholelithiasis is again seen. Increasing thickness of the gallbladder wall currently measuring about 8 mm. Chest/Abdomen/Pelvis CT 09/14/23 08:41 IMPRESSION: 1. Irregular areas of lung consolidation and minimal ground-glass opacity extending from the right hilar area into the upper middle and lower lobes felt to represent pneumonia and atelectasis. 2. Cholelithiasis is present without cholecystitis. No gallbladder wall thickening or pericholecystic fluid collection. IMPRESSION: Cholelithiasis is present without cholecystitis. No gallbladder wall thickening or pericholecystic fluid collection. Laboratory Results WBC 16.58 10^3/uL (3.29-11.43) H 09/15/23 06:20 RBC 4.05 10^6/uL (3.85-5.65) 09/15/23 06:20 Hgb 12.80 g/dL (11.27-16.99) 09/15/23 06:20 Hct 37.7 % (37-53) 09/15/23 06:20 MCV 93.1 fl (82-101) 09/15/23 06:20 MCH 31.6 pg (27-33) 09/15/23 06:20 MCHC 34.0 g/dL (30-55) 09/15/23 06:20 RDW 14.9 % (12.1-15.1) 09/15/23 06:20 Plt Count 411 10^3/cmm (157-399) H 09/15/23 06:20 MPV 10.9 fL (7.4-10.4) H 09/15/23 06:20 Neut % (Auto) 60.5 % 09/15/23 06:20 Lymph % (Auto) 26.0 % 09/15/23 06:20 [place] % (Auto) 9.8 % 09/15/23 06:20 Eos % (Auto) 2.9 % 09/15/23 06:20 Baso % (Auto) 0.5 % 09/15/23 06:20 Neut # (Auto) 10.03 10^3/uL (1.8-7.7) H 09/15/23 06:20 Lymph # (Auto) 4.3 10^3/uL (0.8-4.8) 09/15/23 06:20 [place] # (Auto) 1.6 10^3/uL (0.2-0.9) H 09/15/23 06:20 Eos # (Auto) 0.5 10^3/uL (0.0-0.8) 09/15/23 06:20 Baso # (Auto) 0.1 10^3/uL (0.0-0.1) 09/15/23 06:20 Nucleated RBC % (auto) 0 % 09/15/23 06:20 Nucleated RBCs # 0.0 /100WBC 09/15/23 06:20 Sodium 143 mmol/L (136-145) 09/15/23 06:20 Potassium 3.7 mmol/L (3.5-5.1) 09/15/23 06:20 Chloride 111 mmol/L (98-107) H 09/15/23 06:20 Carbon Dioxide 23 mmol/L (22-29) 09/15/23 06:20 Anion Gap 12.7 (5-19) 09/15/23 06:20 BUN 6 mg/dL (6-20) 09/15/23 06:20 Creatinine 0.7 mg/dL (0.7-1.2) 09/15/23 06:20 GFR Calculation 130.7 mL/min (90-130) H 09/15/23 06:20 Glucose 89 mg/dL (65-115) 09/15/23 06:20 Calculated Osmolality 293 mOsm/kg (285-295) 09/15/23 06:20 Lactic Acid 0.9 mmol/L (0.5-2.2) 09/13/23 15:01 Calcium 8.1 mg/dL (8.5-10.5) L 09/15/23 06:20 Magnesium 1.9 mg/dL (1.7-2.3) 09/15/23 06:20 Total Bilirubin 0.8 mg/dL (0.15-1.2) 09/14/23 02:40 AST 15 U/L (0-40) 09/14/23 02:40 ALT 15 U/L (0-41) 09/14/23 02:40 Alkaline Phosphatase 102 U/L (40-130) 09/14/23 02:40 Total Protein 6.2 g/dL (6.6-8.7) L 09/14/23 02:40 Albumin 3.4 g/dL (3.5-5.2) L 09/14/23 02:40 Globulin 2.8 g/dL (1.3-4.6) 09/14/23 02:40 Procalcitonin 0.23 ng/mL (0-0.5) 09/13/23 13:46 Adenovirus (PCR) Not detected (NOT DETECT) 09/13/23 14:07 C. pneumoniae DNA (PCR) Not detected (NOT DETECT) 09/13/23 14:07 Coronavirus 229E (PCR) Not detected (NOT DETECT) 09/13/23 14:07 Human Metapneumovir PCR Not detected (NOT DETECT) 09/13/23 14:07 Influenza A (H1) PCR Not detected (NOT DETECT) 09/13/23 14:07 Influ A (H1/09) PCR Not detected (NOT DETECT) 09/13/23 14:07 Influenza A (H3) PCR Not detected (NOT DETECT) 09/13/23 14:07 Influenza Type A (PCR) Not detected (NOT DETECT) 09/13/23 14:07 Influenza Type B (PCR) Not detected (NOT DETECT) 09/13/23 14:07 M. pneumoniae (PCR) Not detected (NOT DETECT) 09/13/23 14:07 Parainfluenza 1 (PCR) Not detected (NOT DETECT) 09/13/23 14:07 Parainfluenza 2 (PCR) Not detected (NOT DETECT) 09/13/23 14:07 Parainfluenza 3 (PCR) Not detected (NOT DETECT) 09/13/23 14:07 Parainfluenza 4 (PCR) Not detected (NOT DETECT) 09/13/23 14:07 RSV Type A (PCR) Not detected (NOT DETECT) 09/13/23 14:07 RSV Type B (PCR) Not detected (NOT DETECT) 09/13/23 14:07 Entero/Rhino (PCR) Detected (NOT DETECT) A 09/13/23 14:07 SARS-CoV-2 (PCR) Not detected (NOT DETECT) 09/13/23 14:07 Vitals Last Vital Signs Temp 98.1 F 09/15/23 11:23 Pulse 92 09/15/23 11:23 Resp 17 09/15/23 11:23 BP 115/74 09/15/23 11:23 Pulse Ox 94 09/15/23 11:23 O2 Del Method Room Air 09/15/23 11:23 Discharge Plan Discharge Patient Disposition: Home Condition: Stable Prescriptions: New ipratropium-albuterol 0.5 mg-3 mg(2.5 mg base)/3 mL Solution For Nebulization 3 ml inhalation Q6H Qty: 180 0RF budesonide 0.5 mg/2 mL Suspension For Nebulization 0.5 mg inhalation BID.RESPIRATORY Qty: 60 0RF levofloxacin 750 mg tablet 750 mg PO Q24H 5 Days Qty: 5 0RF prednisone 20 mg tablet 20 mg PO BID 5 Days Qty: 10 0RF cyanocobalamin (vitamin B-12) 5,000 mcg capsule 5,000 mcg PO DAILY Qty: 30 0RF cefdinir 300 mg capsule 300 mg PO BID 5 Days Qty: 10 0RF Continued emtricitabine-tenofovir (TDF) 200-300 mg tablet See Rx Instructions .ROUTE .COMPLEX Qty: 30 2RF Dose Instruction: TAKE ONE TABLET BY MOUTH EVERY DAY Rx Instructions: TAKE ONE TABLET BY MOUTH EVERY DAY cholecalciferol (vitamin D3) 1,250 mcg (50,000 unit) capsule 50,000 unit PO .weekly Qty: 4 2RF dicyclomine 20 mg tablet 20 mg PO QID Qty: 120 2RF Rx Instructions: Take 1 tablet by mouth four times daily. quetiapine 50 mg tablet 50 mg PO DAILY Qty: 30 2RF Rx Instructions: Take one tablet by mouth every day at bedtime. fluticasone propionate 50 mcg/actuation spray,suspension 2 spray INTRANASAL DAILY Qty: 16 2RF Spiriva Respimat 2.5 mcg/actuation mist 2 puff inhalation DAILY Qty: 4 2RF albuterol sulfate [Ventolin HFA] 90 mcg/actuation HFA aerosol inhaler 2 puff INHALATION Q6H PRN (Reason: Shortness Of Breath) Qty: 8.5 2RF budesonide-formoterol [Symbicort] 160-4.5 mcg/actuation HFA aerosol inhaler 2 puff inhalation BID Qty: 10.2 2RF Periogard 0.12 % mouthwash 15 ml buccal BID Qty: 473 2RF loperamide [Imodium A-D] 2 mg tablet 2 mg PO Q6H PRN (Reason: loose stool) Qty: 30 0RF dicyclomine 20 mg tablet 20 mg PO QID PRN (Reason: abdominal pain) Qty: 40 0RF ondansetron 4 mg tablet,disintegrating 4 mg PO Q8H PRN (Reason: nausea and vomiting) Qty: 10 0RF Discontinued ondansetron HCl 4 mg tablet 4 mg PO Q8H PRN (Reason: nausea and vomiting) Qty: 14 0RF Discharge Orders: Discharge Order (Routine); Ordered 09/15/23 Ordered By: Stefan Echavarria Other Ambulatory Orders: DME: Nebulizer with Neb Kit (Order) Location: None Selected Ordered By: Stefan Echavarria Referrals: Betzaida Santos FNP-C [Primary Care Provider] - 09/22/23 9:00 am Discharge Diet: Regular and Cardiac Discharge Activity: Resume usual activity and Increase activity as tolerated Patient Instructions: Ipratropium (By breathing), Prednisone (By mouth), Levofl oxacin (By mouth) (Levaquin, Levaquin Leva-josué), Budesonide (By breathing), Cefdinir (By mouth), Vitamin B-12 (By mouth), Community Acquired Pneumonia (DC), Opioid Safety Activity Restrictions/Additional Instructions: Cefdinir and Levaquin is the antibiotic which you need to take for next 5 days. Cefdinir be twice daily Levaquin only once daily. Also take prednisone which is a steroid 40 mg for next 5 days. Take DuoNebs nebulization 4 times a day along with Pulmicort twice a day. While on nebulization try to avoid using inhaler though you can use albuterol inhaler as needed. Discharge Attestations Time Spent in Discharge Care*: greater than 30 min Specific Discharge Activities: educating patient, discussing with pcp/other providers, discussing with special education case manager/social workers/dc planners, documenting/other paperwork and evaluating patient/reviewing data Status at Discharge: Cognitive status at discharge: cognitively intact , Behavioral status at discharge: cooperative , Functional status at discharge: independent ambulation , Overall status at discharge: patient is back to baseline Quality Metrics Clinical Quality Measures [ No reported AMI, CVA or VTE this stay] Coding Level of Care Code 22181 Total time (in minutes) for Discharge: 60 Diagnoses Generalized anxiety disorder F41.1 Gastroesophageal reflux disease without esophagitis K21.9 Esophagitis presence: without esophagitis Pneumonia J18.9 Obstructive sleep apnea G47.33
--- NOTE | 2023-09-15 13:59 | PC.SOCIAL ---
Nebulizer order Pt has d/c orders in to go home. Pt has an order for a nebulizer. He was okay with using [facility]. A choice letter filled out & placed in chart. Faxed neb order to [facility]. Cyber access done & was denied. It said: Authorization was denied for this procedure and patient for the following reason(s): Nebulizer purchased within the last 60 months. CM called [facility], spoke to Claribel there. She said pt had got a nebulizer & kit on Jan 19 2021. She said he can private pay for one, the cost is $60. Hair Sample Matcher called & notified Mónica, pt care nurse of this. She said she will let pt know.
--- NOTE | 2023-09-15 14:00 | PC.NURSE ---
Patient updated at this time that medicaid will not pay for another nebulizer as h has received one in the last 5 years. In January of 2021. Patient states that he has no idea where it is. Patient offered the information that he would be able to purchase one from [facility] for 60 dollars. Patient verbalized understanding.
--- NOTE | 2023-09-15 14:24 | PC.NURSE ---
Patient is A&OX4 on room air. Patient discharged at this time Patient verbalized understanding of discharge instructions including medications and follow up appointments. Patient ambulated from his room pushing his mother. No obvious signs of distress noted.
[2023-09-15 15:27] LABS: HIV 1 & 2 Antibody Non-Reactive (Non-Reactiv); HIV 1 & 2 Antigen Non-Reactive (Non-Reactiv)
== END 2023-09-15 14:20 | disposition home or self-care (01) | DRG 194 ==
LOC: ER 14:33 → ICU 15:26 → MEDSURG 09-14 05:25
PROVIDERS: Admitting Provider Internal Medicine; Emergency Provider Family Medicine; PCP Nurse Practitioner Family; Visit Provider Student in an Organized Health Care Education/Training Program
DX: J15.9 Unspecified bacterial pneumonia (principal); J45.901 Unspecified asthma with (acute) exacerbation; B97.10 Unspecified enterovirus as the cause of diseases classified elsewhere; B97.89 Other viral agents as the cause of diseases classified elsewhere; K81.1 Chronic cholecystitis; G47.33 Obstructive sleep apnea (adult) (pediatric); F31.9 Bipolar disorder, unspecified; F90.0 Attention-deficit hyperactivity disorder, predominantly inattentive type; K21.9 Gastro-esophageal reflux disease without esophagitis; F41.1 Generalized anxiety disorder
CPT/HCPCS: 36415; 71045; 71260; 74177; 76705; 80048; 80053; 83605; 83735; 84145; 85025; 87040; 87486; 87581; 87633; 87806; 94640; 94664; 96365; 96367; 96372; 99285; C9113; G0378; J0456; J0696; J1644; J7030; J7050; J7626; Q9967

== ENCOUNTER 2023-09-20 01:49 | Inpatient (IN) | payer MEDICAID, SELFPAY ==
[2023-09-20 01:50] VITALS: BP 137/92; PULSE 81; RESP 16; TEMP 36.7; O2SAT 97
--- NOTE | 2023-09-20 02:34 | PC.NURSE ---
Patient was dressed out all of belongings and placed in green paper scrubs. All belongings were put in a labeled bag and placed in filing cabinet by psych rooms. Patient remains in cleared psych room with PSA present.
[2023-09-20 02:42] LABS: Add Urine Microscopic? NO; Charge for UA Resulting for Rev
[2023-09-20 02:44] LABS: Basophils # 0.1 10^3/uL (0.0-0.1); Basophils % 0.5 %; Eosinophils # 0.3 10^3/uL (0.0-0.8); Eosinophils % 2.6 %; Hematocrit 42.2 % (37-53); Lymphocytes # 4.7 10^3/uL (0.8-4.8); Lymphocytes % 41.9 %; Mean Corpuscular HGB Conc 34.6 g/dL (30-55); Mean Corpuscular Hemoglobin 31.4 pg (27-33); Mean Corpuscular Volume 90.8 fl (82-101); Mean Platelet Volume 10.4 fL (7.4-10.4); Monocytes % 9.3 %; Neutrophils # 5.01 10^3/uL (1.8-7.7); Neutrophils % 45.2 %; Nucleated Red Blood Cells % 0 %; Platelet Count 603 10^3/cmm (157-399); Red Blood Count 4.65 10^6/uL (3.85-5.65); Red Cell Distribution Width 14.6 % (12.1-15.1); White Blood Count 11.09 10^3/uL (3.29-11.43)
[2023-09-20 02:48] LABS: Bilirubin Urine Neg (Negative); Blood Urine Neg (Negative); Glucose Urine UA Norm (Normal); Ketones Urine Negative (Negative); Leukocyte Esterase Urine Negative (Negative); Nitrate Urine Negative (Negative); Protein Urine Neg (Negative); Urine Appearance Clear (CLEAR); Urine Color Dark Yellow (Yellow); Urobilinogen Urine Neg (Negative); pH Urine 5 (5-7)
[2023-09-20 02:54] LABS: Amphetamines Screen Urine Negative (Negative); Barbiturates Screen Urine Negative (Negative); Benzodiazepines Screen Urine Negative (Negative); Cocaine Screen Urine Negative (Negative); Opiate Screen Urine Negative (Negative); PCP Screen Urine Negative (Negative); THC Screen Urine Negative (Negative)
[2023-09-20 03:04] LABS: Alanine Aminotransferase 23 U/L (0-41); Albumin Level 4.1 g/dL (3.5-5.2); Alkaline Phosphatase 92 U/L (40-130); Anion Gap 13.5 (5-19); Aspartate Amino Transferase 20 U/L (0-40); Blood Urea Nitrogen 10 mg/dL (6-20); Carbon Dioxide 25 mmol/L (22-29); Chloride 106 mmol/L (98-107); Globulin 3.5 g/dL (1.3-4.6); Glomerular Filtration Rate 156.1 mL/min (90-130); Glucose 93 mg/dL (65-115); Osmolality Calculated 291 mOsm/kg (285-295); Potassium 3.5 mmol/L (3.5-5.1); Sodium 141 mmol/L (136-145); Total Bilirubin 0.3 mg/dL (0.15-1.2); Total Protein 7.6 g/dL (6.6-8.7)
[2023-09-20 03:05] LABS: Acetaminophen < 5.0 ug/mL (10-30); Alcohol Level < 10 mg/dL (0-10); Salicylate < 0.3 mg/dL (3-10)
--- NOTE | 2023-09-20 03:07 | ED.C_ITS ---
HPI - Psych 2 General: Chief Complaint: Psychiatric Symptoms Stated Complaint: wants MHE Time Seen by Provider: 09/20/23 02:00 History of Present Illness: 33-year-old male says he is at his wits end. He has been seeking help for his mental illness, but has not been able to see a psychiatrist in quite some time. He says that he has Seroquel and Lamictal, filled by a physician in [place]. These medications have not been controlling his symptoms well. He is running dangerously low on these medications he says, and his primary care provider who is a nurse practitioner is not comfortable refilling them. He endorses daily thoughts of suicide, but these thoughts have been escalating in frequency and intensity of the past couple of days to the point that he is worried something may happen. He is wanting to be evaluated in the inpatient setting. Review of Systems 2 Const: Denies: fever(s), chills or body aches Eyes: Denies: change in vision Card: Denies: chest pain or palpitations Resp: Denies: dyspnea, productive cough, non-productive cough or wheezing GI: Denies: abdominal pain, nausea, vomiting, diarrhea or hematochezia Skin/Breast: Denies: rash Neuro: Denies: headache(s), weakness in extremities, dizziness or confusion PFSH ED 2 PFSH: Medical History (Updated 09/20/23 @ 03:12 by Jared Espinosa DO) Broken tooth At risk for HIV due to homosexual contact Screening for STD (sexually transmitted disease) Peanut allergy Hyperlipidemia Mild cognitive impairment with memory loss Chronic migraine without aura, intractable, with status migrainosus Morbid obesity Vitamin D deficiency, unspecified Urinary hesitancy Calculus of kidney Anxiety Frequent headaches GERD (gastroesophageal reflux disease) Idiopathic thrombocytopenic purpura (ITP) Compression fracture of L1 vertebra with routine healing Other spondylosis with radiculopathy, lumbar region Displacement of lumbar intervertebral disc 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 Asthma Attention-deficit hyperactivity disorder, predominantly inattentive type Generalized anxiety disorder Bipolar disorder, unspecified Surgical History H/O esophagogastroduodenoscopy (11/20/20) Status post colonoscopy (11/20/20) History of hernia repair Hx of tonsillectomy History of splenectomy Family History Mother Cancer Diabetes Family/Other Cancer UNCLE Denies family history of Anesthesia complication Bleeding disorder Social History Smoking and tobacco/nicotine status: never used tobacco/nicotine Second hand smoke exposure: Yes Alcohol intake: never Substance/Drug Use: never Caregiver/support person: Yes Lives independently: No Household members: family Marital status: Single Number of children: 0 service: No Current occupational status: disabled Current gender identity: Male Special law needs: No Physical Exam 2 Const: GENERAL APPEARANCE: cooperative and anxious; not ill appearing and not frail appearing HENMT: COMMON NORMALS: normocephalic, atraumatic and Normal external nose present HEAD & SCALP: normocephalic and atraumatic FACE & SINUS: normal facial exam and face symmetric NOSE: Normal external nose present Eye: COMMON NORMALS: Equal, round and reactive pupils present and EOMs intact bilaterally PUPIL: Yes Equal, round and reactive pupils present Neck/C-Spine: GENERAL: Yes trachea midline Chest: CHEST: Yes Symmetrical chest wall rise Resp: COMMON NORMALS: normal respiratory effort, No retractions, No use of accessory muscles and clear to auscultation bilaterally AUSCULTATION: clear to auscultation bilaterally Cardio: COMMON NORMALS: regular rate and regular rhythm RATE: regular rate RHYTHM: regular rhythm GI: COMMON NORMALS: Normal to inspection, nondistended, normoactive bowel sounds present Extremity: COMMON NORMALS: no pedal edema Neuro: TYLER COMA SCALE: document GCS findings Tyler coma scale eye opening: Spontaneous Tyler coma scale verbal response: Orientated Tyler coma scale motor response: Obey commands [place] coma scale total score: 15 S ENSORY EXAM: Yes extremities (intact) Psych: COMMON NORMALS: speech normal SPEECH: Yes normal speech Skin: COMMON NORMALS: no rashes or lesions noted GENERAL SKIN EXAM: no rashes or lesions noted Course 2 Vital Signs: Vital signs: Vital Signs Temperature 97.8 F 09/20/23 20:04 Pulse Rate 85 09/20/23 20:04 Respiratory Rate 18 09/20/23 20:04 Blood Pressure 114/76 09/20/23 20:04 Pulse Oximetry 94 09/20/23 20:04 Oxygen Delivery Me thod Room Air 09/20/23 10:27 MDM - Psych Medical Decision Making This patient has attempted compliance with his prescribed therapy. He has escalating suicidal ideations over the past few days despite compliance. Medically, he is quite stable. No substance abuse. He is not had to be an inpatient in quite some time he describes. He does not currently have any psychiatrist to follow-up with as an outpatient. He presents significant risk of self-harm given his escalating thoughts. He will be admitted to psychiatry. Lab Data 09/20/23 02:28 09/20/23 02:28 Laboratory Results WBC 11.09 10^3/uL (3.29-11.43) 09/20/23 02:28 RBC 4.65 10^6/uL (3.85-5.65) 09/20/23 02:28 Hgb 14.60 g/dL (11.27-16.99) 09/20/23 02:28 Hct 42.2 % (37-53) 09/20/23 02:28 MCV 90.8 fl (82-101) 09/20/23 02:28 MCH 31.4 pg (27-33) 09/20/23 02:28 MCHC 34.6 g/dL (30-55) 09/20/23 02:28 RDW 14.6 % (12.1-15.1) 09/20/23 02:28 Plt Count 603 10^3/cmm (157-399) H 09/20/23 02:28 MPV 10.4 fL (7.4-10.4) 09/20/23 02:28 Neut % (Auto) 45.2 % 09/20/23 02:28 Lymph % (Auto) 41.9 % 09/20/23 02:28 [place] % (Auto) 9.3 % 09/20/23 02:28 Eos % (Auto) 2.6 % 09/20/23 02:28 Baso % (Auto) 0.5 % 09/20/23 02:28 Neut # (Auto) 5.01 10^3/uL (1.8-7.7) 09/20/23 02:28 Lymph # (Auto) 4.7 10^3/uL (0.8-4.8) 09/20/23 02:28 [place] # (Auto) 1.0 10^3/uL (0.2-0.9) H 09/20/23 02:28 Eos # (Auto) 0.3 10^3/uL (0.0-0.8) 09/20/23 02:28 Baso # (Auto) 0.1 10^3/uL (0.0-0.1) 09/20/23 02:28 Nucleated RBC % (auto) 0 % 09/20/23 02:28 Nucleated RBCs # 0.0 /100WBC 09/20/23 02:28 Sodium 141 mmol/L (136-145) 09/20/23 02:28 Potassium 3.5 mmol/L (3.5-5.1) 09/20/23 02:28 Chloride 106 mmol/L (98-107) 09/20/23 02:28 Carbon Dioxide 25 mmol/L (22-29) 09/20/23 02:28 Anion Gap 13.5 (5-19) 09/20/23 02:28 BUN 10 mg/dL (6-20) 09/20/23 02:28 Creatinine 0.6 mg/dL (0.7-1.2) L 09/20/23 02:28 GFR Calculation 156.1 mL/min (90-130) H 09/20/23 02:28 Glucose 93 mg/dL (65-115) 09/20/23 02:28 Calculated Osmolality 291 mOsm/kg (285-295) 09/20/23 02:28 Calcium 9.0 mg/dL (8.5-10.5) 09/20/23 02:28 Total Bilirubin 0.3 mg/dL (0.15-1.2) 09/20/23 02:28 AST 20 U/L (0-40) 09/20/23 02:28 ALT 23 U/L (0-41) 09/20/23 02:28 Alkaline Phosphatase 92 U/L (40-130) 09/20/23 02:28 Total Protein 7.6 g/dL (6.6-8.7) 09/20/23 02:28 Albumin 4.1 g/dL (3.5-5.2) 09/20/23 02:28 Globulin 3.5 g/dL (1.3-4.6) 09/20/23 02:28 Urine Color Dark yellow (Yellow) 09/20/23 02:28 Urine Appearance Clear (CLEAR) 09/20/23 02:28 Urine pH 5 (5-7) 09/20/23 02:28 Ur Specific [place] 1.020 (1.005-1.030) 09/20/23 02:28 Urine Protein Neg (Negative) 09/20/23 02:28 Urine Glucose (UA) Norm (Normal) 09/20/23 02:28 Urine Ketones Negative (Negative) 09/20/23 02:28 Urine Blood Neg (Negative) 09/20/23 02:28 Urine Nitrate Negative (Negative) 09/20/23 02:28 Urine Bilirubin Neg (Negative) 09/20/23 02:28 Urine Urobilinogen Neg mg/dL (Negative) 09/20/23 02:28 Ur Leukocyte Esterase Negative (Negative) 09/20/23 02:28 Salicylates < 0.3 mg/dL (3-10) L 09/20/23 02:28 Urine Opiates Screen Negative ng/mL (Negative) 09/20/23 02:28 Acetaminophen < 5.0 ug/mL (10-30) L 09/20/23 02:28 Ur Barbiturates Screen Negative ng/mL (Negative) 09/20/23 02:28 Ur Phencyclidine Scrn Negative ng/mL (Negative) 09/20/23 02:28 Ur Amphetamines Screen Negative ng/mL (Negative) 09/20/23 02:28 U Benzodiazepines Scrn Negative ng/mL (Negative) 09/20/23 02:28 Urine Cocaine Screen Negative ng/mL (Negative) 09/20/23 02:28 U Marijuana (THC) Screen Negative ng/mL (Negative) 09/20/23 02:28 Ethyl Alcohol < 10 mg/dL (0-10) 09/20/23 02:28 No radiology studies performed this visit Discharge Plan Discharge Patient Disposition: Admitted As Inpatient Admit Provider: Ab Nathan Clinical Impression: Bipolar disorder, unspecified, Suicidal ideation Condition: Stable Coding Level of Care Code ED Principal Architect for Travis Landrum
[2023-09-20 09:02] VITALS: BP 124/84; PULSE 77; RESP 16; TEMP 36.8; O2SAT 96
[2023-09-20 09:47] VITALS: RESP 15
--- NOTE | 2023-09-20 11:28 | PC.ADMIT ---
[phone] Admission Note: The patient,Willi Meadows,33 y/o, was given written information regarding hospital policies, unit procedures and contact persons. Patient's smoking status: never smoked. Vital Signs - 8 hr 09/20/23 09:02 09/20/23 09:47 09/20/23 10:27 Temperature 98.3 F Pulse Rate 77 Respiratory Rate 16 15 Blood Pressure 124/84 Pulse Oximetry 96 Oxygen Delivery Method Room Air Room Air ADMITTED FROM ER VIA WHEELCHAIR, VOLUNTARY. PT ARRIVES TO NPU AT 0941. STATES HE IS HERE FOR SUICIDAL THOUGHTS AND NO MEDICATIONS. PT STATES HIS PROVIDER IN [place] WILL NO LONGER PRESCRIBE HIS MEDICATIONS FOR HIS PSYCHIATRIC NEEDS. PT ENDORSES SUICIDAL THOUGHTS WITH NO PLAN AT THIS TIME. DENIES HI AND AVH. DENIES PAIN. SKIN ASSESSMENT COMPLETED AND REVEALS BRUISING TO ABDOMEN AND A DRIED SCAB TO LEFT TOP OF FOOT. PT STATES HE IS HOMELESS AND LIVES IN THE [facility] LOT WITH HIS MOTHER. PT STATES HE HAS PLACED HIS NAME ON EVERY LIST FOR HOUSING AVAILABLE BUT NO ONE WILL RENT TO MY FAMILY. PT WAS GIVEN A SANDWHICH AND ORIENTATED TO UNIT. PT DENIES ANY SUBSTANCE ABUSE HISTROY. STATES HE HAS A PSYCHIATRIC HISTORY OF BIPOLAR, DEPRESSION AND ANXIETY. PT DOES TAKE PSYCHIATRIC MEDICATIONS. ALL QUESTIONS ANSWERED AND SUPPORT VOICED.. RATES ANXIETY 7/10 AND DEPRESSION 10/10. DECLINES ANTI-ANXIETY MEDICATIONS ON ADMISSION.
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
[2023-09-20 14:00] VITALS: BP 116/75; PULSE 71; RESP 20; TEMP 36.7; O2SAT 96
[2023-09-20 20:04] VITALS: BP 114/76; PULSE 85; RESP 18; TEMP 36.6; O2SAT 94
[2023-09-20] MEDS: quetiapine 100 mg Tablet PO (20:51)
[2023-09-20] MEDS: escitalopram 10 mg Tablet PO (20:52)
[2023-09-21 06:00] VITALS: BP 118/73; PULSE 90; RESP 16; O2SAT 96
--- NOTE | 2023-09-21 09:00 | PC.NURSE ---
Patient denies avh this morning. When asked if he was experiencing any suicidal thoughts he replied, that's always there, hon. Until the medication gets in my system and then it'll get better. He denies hi, but did pause for some time before answering.
[2023-09-21] MEDS: escitalopram 10 mg Tablet PO (09:38)
--- NOTE | 2023-09-21 12:40 | P.NPUPN_ITS ---
Subjective NPU 2 Subjective: Patient presented today reporting that he is doing okay. He denies any specific difficulties over the last 24 hours. He reports ongoing challenges with his depression and denied any side effects to the restarting of the medications. He continues to have challenges in relation to his circumstances. We discussed the social work team being back tomorrow and able to begin looking at what resources would be beneficial. Mental Status Exam 2 MSE Comments: This is an obese versus morbidly obese white male in hospital scrubs on with limited grooming and limited eye contact. No abnormal movements except for psychomotor retardation. Cooperative with exam in mild distress. Speech was decreased rate and normal volume. Mood described as depressed, affect congruent and subdued. Thought process organized. Thought content: Patient endorsed suicidal but denied homicidal ideation, there were no delusions reported or noted, and he denied auditory or visual hallucinations. Patient reports feeling depressed and has daily thoughts of suicide. No thoughts of violence or aggression towards others. No signs of paranoia or hallucinations. Attention and concentration were mostly intact and memory appeared somewhat reliable but none were formally tested. He is alert and oriented x 3. Insight and judgment are limited, impulse control is limited versus impaired. Vitals/I&O/Wt Last Vital Signs Temp 97.8 F 09/20/23 20:04 Pulse 90 09/21/23 06:00 Resp 16 09/21/23 06:00 BP 118/73 09/21/23 06:00 Pulse Ox 96 09/21/23 06:00 O2 Del Method Room Air 09/21/23 06:00 Weight last 48 hrs Weight 109.996 kg Weight 107.955 kg Data NPU 09/20/23 02:28 09/20/23 02:28 A&P Assessment and plan (1) Bipolar disorder, unspecified: (2) Generalized anxiety disorder: (3) Attention-deficit hyperactivity disorder, predominantly inattentive type: (4) Anxiety: (5) Suicidal ideation: (6) Idiopathic thrombocytopenic purpura (ITP): (7) Hyperglycemia: (8) Vitamin B12 deficiency: Plan Patient is a 33-year-old white male admitted with long history of mental health and limited addiction issues with significant outpatient services through [facility] with past inpatient services but never at this hospital last inpatient reportedly 9 years ago who presents reporting he is struggling with severe depression, suicidal thoughts, and significant life stressors including homelessness and financial instability. 1. Restarted Seroquel at 100 mg p.o. nightly and start Lexapro 10 mg p.o. daily. 2. Encourage individual, group and milieu therapy. 3. Continue q-15 minute checks for safety.? 4.? Encourage sober living treatment at the highest level of care to which the patient is willing to commit. 5. Work with social work team to identify any community supports given his significant psychosocial challenges. Involuntary Hold Information 2 96 Hour Hold: 96 Hour Involuntary Admission: No Attestations NPU 2 Medical Necessity Statement*: Inpatient hospitalization is medically necessary and the clinically appropriate intervention at this time. We will monitor medications and make changes as indicated. Likely length of stay 3-5 days. Coding Level of Care Code Acute Code for [facility] Fwd Diagnoses Bipolar disorder, unspecified F31.9 Generalized anxiety disorder F41.1 Attention-deficit hyperactivity disorder, predominantly inattentive type F90.0 Anxiety F41.9 Suicidal ideation R45.851 Idiopathic thrombocytopenic purpura (ITP) D69.3 Hyperglycemia R73.9 Vitamin B12 deficiency E53.8
[2023-09-21 14:00] VITALS: BP 113/72; PULSE 70; RESP 20; TEMP 36.7; O2SAT 95
[2023-09-21 20:05] VITALS: BP 118/72; PULSE 92; RESP 18; TEMP 36.9; O2SAT 96
[2023-09-21] MEDS: quetiapine 100 mg Tablet PO (20:50)
[2023-09-22 06:00] VITALS: BP 118/77; PULSE 68; RESP 16; O2SAT 95
[2023-09-22] MEDS: escitalopram 10 mg Tablet PO (09:05)
[2023-09-22 14:00] VITALS: BP 123/67; PULSE 76; RESP 16; TEMP 36.5; O2SAT 95
[2023-09-22] MEDS: acetaminophen 325 mg Tablet 650 MG PO (15:13)
--- NOTE | 2023-09-22 18:08 | PC.NURSE ---
STAFF PERFORMED RANDOM ROOM CHECK. NO OUTSIDE CONTRABAND WAS FOUND IN PT ROOM OR AREA. PT WAS COOPERATIVE WITH ROOM SEARCH.
[2023-09-22] MEDS: quetiapine 100 mg Tablet PO (20:38)
--- NOTE | 2023-09-22 21:30 | W.PM.NPUPNS ---
Subjective NPU Subjective: Patient presented today reporting that he was feeling a little better, less depressed and more optimistic. He reports he did have an opportunity to talk to the social work team and that they are working together for options given his significant psychosocial stressors. He reports that he has slept better and he denied any side effects to the medication. Mental Status Exam MSE Comments: This is an obese versus morbidly obese white male in hospital scrubs on with limited grooming and limited eye contact. No abnormal movements except for psychomotor retardation. Cooperative with exam in mild distress. Speech was decreased rate and normal volume. Mood described as better, affect congruent and less subdued. Thought process organized. Thought content: Patient endorsed suicidal but denied homicidal ideation, there were no delusions reported or noted, and he denied auditory or visual hallucinations. Patient reports feeling depressed and has daily thoughts of suicide. No thoughts of violence or aggression towards others. No signs of paranoia or hallucinations. Attention and concentration were mostly intact and memory appeared somewhat reliable but none were formally tested. He is alert and oriented x 3. Insight and judgment are limited, impulse control is limited versus impaired. Vitals/I&O/Wt Last Vital Signs Temp 97.7 F 09/22/23 14:00 Pulse 76 09/22/23 14:00 Resp 16 09/22/23 14:00 BP 123/67 09/22/23 14:00 Pulse Ox 95 09/22/23 14:00 O2 Del Method Room Air 09/22/23 06:00 Weight last 48 hrs Weight 109.996 kg Data NPU 09/20/23 02:28 09/20/23 02:28 A&P Assessment and plan (1) Bipolar disorder, unspecified: (2) Generalized anxiety disorder: (3) Attention-deficit hyperactivity disorder, predominantly inattentive type: (4) Anxiety: (5) Suicidal ideation: (6) Idiopathic thrombocytopenic purpura (ITP): (7) Hyperglycemia: (8) Vitamin B12 deficiency: Plan Patient is a 33-year-old white male admitted with long history of mental health and limited addiction issues with significant outpatient services through [facility] with past inpatient services but never at this hospital last inpatient reportedly 9 years ago who presents reporting he is struggling with severe depression, suicidal thoughts, and significant life stressors including homelessness and financial instability. 1. Restarted Seroquel at 100 mg p.o. nightly and start Lexapro 10 mg p.o. daily. 2. Encourage individual, group and milieu therapy. 3. Continue q-15 minute checks for safety.? 4.? Encourage sober living treatment at the highest level of care to which the patient is willing to commit. 5. Work with social work team to identify any community supports given his significant psychosocial challenges. Involuntary Hold Information 96 Hour Hold: 96 Hour Involuntary Admission: No Attestations NPU Medical Necessity Statement*: Inpatient hospitalization is medically necessary and the clinically appropriate intervention at this time. We will monitor medications and make changes as indicated. Likely length of stay 2-4 days. Coding Level of Care Code Acute Code for g Fwd Diagnoses Bipolar disorder, unspecified F31.9 Generalized anxiety disorder F41.1 Attention-deficit hyperactivity disorder, predominantly inattentive type F90.0 Anxiety F41.9 Suicidal ideation R45.851 Idiopathic thrombocytopenic purpura (ITP) D69.3 Hyperglycemia R73.9 Vitamin B12 deficiency E53.8
[2023-09-22 22:00] VITALS: BP 132/77; PULSE 107; RESP 18; TEMP 36.3; O2SAT 93
[2023-09-23 06:00] VITALS: BP 109/72; PULSE 84; RESP 17; TEMP 36.5; O2SAT 96
[2023-09-23] MEDS: escitalopram 10 mg Tablet PO (08:20)
[2023-09-23 14:00] VITALS: BP 129/83; PULSE 77; RESP 17; TEMP 36.2; O2SAT 95
--- NOTE | 2023-09-23 18:47 | P.NPUPN_ITS ---
Subjective NPU 2 Subjective: Patient presented today reporting that he feels like he is doing better. He reports the medications are working and he feels that he is in the social work team have come up with a reasonable plan for where they go from here. He reports that he is working on long-term plans and short-term plans. He denies any side effects of the medications. Mental Status Exam 2 MSE Comments: This is an obese versus morbidly obese white male in hospital scrubs on with limited grooming and limited eye contact. No abnormal movements except for psychomotor retardation. Cooperative with exam in mild distress. Speech was decreased rate and normal volume. Mood described as better, affect congruent and less subdued. Thought process organized. Thought content: Patient endorsed suicidal but denied homicidal ideation, there were no delusions reported or noted, and he denied auditory or visual hallucinations. Patient reports feeling depressed and has daily thoughts of suicide. No thoughts of violence or aggression towards others. No signs of paranoia or hallucinations. Attention and concentration were mostly intact and memory appeared somewhat reliable but none were formally tested. He is alert and oriented x 3. Insight and judgment are limited, impulse control is limited versus impaired. Vitals/I&O/Wt Last Vital Signs Temp 97.3 F L 09/23/23 20:03 Pulse 102 H 09/23/23 20:03 Resp 17 09/23/23 20:03 BP 133/65 09/23/23 20:03 Pulse Ox 97 09/23/23 20:03 O2 Del Method Room Air 09/23/23 20:03 Data NPU 09/20/23 02:28 09/20/23 02:28 A&P Assessment and plan (1) Bipolar disorder, unspecified: (2) Generalized anxiety disorder: (3) Attention-deficit hyperactivity disorder, predominantly inattentive type: (4) Anxiety: (5) Suicidal ideation: (6) Idiopathic thrombocytopenic purpura (ITP): (7) Hyperglycemia: (8) Vitamin B12 deficiency: Plan Patient is a 33-year-old white male admitted with long history of mental health and limited addiction issues with significant outpatient services through [facility] with past inpatient services but never at this hospital last inpatient reportedly 9 years ago who presents reporting he is struggling with severe depression, suicidal thoughts, and significant life stressors including homelessness and financial instability. 1. Restarted Seroquel at 100 mg p.o. nightly and started Lexapro 10 mg p.o. daily. 2. Encourage individual, group and milieu therapy. 3. Continue q-15 minute checks for safety.? 4.? Encourage sober living treatment at the highest level of care to which the patient is willing to commit. 5. Tentative plan for discharge in the morning Involuntary Hold Information 2 96 Hour Hold: 96 Hour Involuntary Admission: No Attestations NPU 2 Medical Necessity Statement*: Inpatient hospitalization is medically necessary and the clinically appropriate intervention at this time. We will monitor medications and make changes as indicated. Likely length of stay 1-3 days. Coding Level of Care Code Acute Code for Chg Fwd Diagnoses Bipolar disorder, unspecified F31.9 Generalized anxiety disorder F41.1 Attention-deficit hyperactivity disorder, predominantly inattentive type F90.0 Anxiety F41.9 Suicidal ideation R45.851 Idiopathic thrombocytopenic purpura (ITP) D69.3 Hyperglycemia R73.9 Vitamin B12 deficiency E53.8
[2023-09-23 20:03] VITALS: BP 133/65; PULSE 102; RESP 17; TEMP 36.3; O2SAT 97
[2023-09-23] MEDS: quetiapine 100 mg Tablet PO (20:31)
[2023-09-24 06:00] VITALS: BP 104/62; PULSE 74; RESP 16; O2SAT 96
[2023-09-24] MEDS: escitalopram 10 mg Tablet PO (08:21)
--- NOTE | 2023-09-24 08:21 | PC.NURSE ---
RESTING IN BED,AROUSES TO VOICE. DENIES PAIN. DENIES SI/HI AND AVH AT THIS TIME. RATES ANXIETY AND DEPRESSION /. PT ANTICIPATES DISCHARGE TODAY. STATES GOAL FOR THE DAY IS TO HAVE A SMOOTH TRANSITION WHEN I DISCHARGE. ALL QUESTIONS ANSWERED AND SUPPORT WAS VOICED.
--- NOTE | 2023-09-24 08:26 | P.NPUDS_ITS ---
Diagnoses at Discharge Discharge Diagnosis (1) Bipolar disorder, unspecified: Status: Acute (2) Generalized anxiety disorder: Status: Acute (3) Attention-deficit hyperactivity disorder, predominantly inattentive type: Status: Acute (4) Anxiety: Status: Chronic (5) Suicidal ideation: Status: Acute (6) Idiopathic thrombocytopenic purpura (ITP): Status: Acute (7) Hyperglycemia: Status: Acute (8) Vitamin B12 deficiency: Status: Acute Reason for Visit Reason for Visit: wants [facility] Involuntary Hold Information 96 Hour Hold: 96 Hour Involuntary Admission: No Mental Status Exam MSE Comments: This is an obese versus morbidly obese white male in hospital scrubs on with limited grooming and limited eye contact. No abnormal movements except for psychomotor retardation. Cooperative with exam in mild distress. Speech was decreased rate and normal volume. Mood described as better, affect congruent and less subdued. Thought process organized. Thought content: Patient endorsed suicidal but denied homicidal ideation, there were no delusions reported or noted, and he denied auditory or visual hallucinations. Patient reports feeling depressed and has daily thoughts of suicide. No thoughts of violence or aggression towards others. No signs of paranoia or hallucinations. Attention and concentration were mostly intact and memory appeared somewhat reliable but none were formally tested. He is alert and oriented x 3. Insight and judgment are limited, impulse control is limited versus impaired. Discharge Data Studies Completed and Pending: Laboratory Results WBC 11.09 10^3/uL (3. 29-11.43) 09/20/23 02:28 RBC 4.65 10^6/uL (3.8 5-5.65) 09/20/23 02:28 Hgb 14.60 g/dL (11.27 -16.99) 09/20/23 02:28 Hct 42.2 % (37-53) 09/20/23 02:28 MCV 90.8 fl (82-101) 09/20/23 02:28 MCH 31.4 pg (27-33) 09/20/23 02:28 MCHC 34.6 g/dL (30-55) 09/20/23 02:28 RDW 14.6 % (12.1-15.1 ) 09/20/23 02:28 Plt Count 603 10^3/cmm (157 -399) H 09/20/23 02:28 MPV 10.4 fL (7.4-10.4 ) 09/20/23 02: Neut % (Auto) 45.2 % 09/20/23 02: Lymph % (Auto) 41.9 % 09/20/23 02:28 [place] % (Auto) 9.3 % 09/20/23 02:28 Eos % (Auto) 2.6 % 09/20/23 02:28 Baso % (Auto) 0.5 % 09/20/23 02:28 Neut # (Auto) 5.01 10^3/uL (1.8 -7.7) 09/20/23 02:28 Lymph # (Auto) 4.7 10^3/uL (0.8- 4.8) 09/20/23 02: [place] # (Auto) 1.0 10^3/uL (0.2- 0.9) H 09/20/23 02:28 Eos # (Auto) 0.3 10^3/uL (0.0- 0.8) 09/20/23 02: Baso # (Auto) 0.1 10^3/uL (0.0- 0.1) 09/20/23 02:28 Nucleated RBC % (a uto) 0 % 09/20/23 02: Nucleated RBCs # 0.0 /100WBC 09/20/23 02:28 Sodium 141 mmol/L (136-1 45) 09/20/23 02:28 Potassium 3.5 mmol/L (3.5-5 .1) 09/20/23 02:28 Chloride 106 mmol/L (98-10 7) 09/20/23 02:28 Carbon Dioxide 25 mmol/L (22-29) 09/20/23 02:28 Anion Gap 13.5 (5-19) 09/20/23 02:28 BUN 10 mg/dL (6-20) 09/20/23 02:28 Creatinine 0.6 mg/dL (0.7-1. 2) L 09/20/23 02:28 GFR Calculation 156.1 mL/min (90- 130) H 09/20/23 02:28 Glucose 93 mg/dL (65-115) 09/20/23 02:28 Calculated Osmolal ity 291 mOsm/kg (285- 295) 09/20/23 02:28 Calcium 9.0 mg/dL (8.5-10 .5) 09/20/23 02:28 Total Bilirubin 0.3 mg/dL (0.15-1 .2) 09/20/23 02:28 AST 20 U/L (0-40) 09/20/23 02:28 ALT 23 U/L (0-41) 09/20/23 02:28 Alkaline Phosphata se 92 U/L (40-130) 09/20/23 02:28 Total Protein 7.6 g/dL (6.6-8.7 ) 09/20/23 02:28 Albumin 4.1 g/dL (3.5-5.2 ) 09/20/23 02:28 Globulin 3.5 g/dL (1.3-4.6 ) 09/20/23 02:28 Urine Color Dark yellow (Yel low) 09/20/23 02:28 Urine Appearance Clear (CLEAR) 09/20/23 02:28 Urine pH 5 (5-7) 09/20/23 02:28 Ur Specific Gravit y 1.020 (1.005-1.0 30) 09/20/23 02:28 Urine Protein Neg (Negative) 09/20/23 02:28 Urine Glucose (UA) Norm (Normal) 09/20/23 02:28 Urine Ketones Negative (Negati ve) 09/20/23 02:28 Urine Blood Neg (Negative) 09/20/23 02:28 Urine Nitrate Negative (Negati ve) 09/20/23 02:28 Urine Bilirubin Neg (Negative) 09/20/23 02:28 Urine Urobilinogen Neg mg/dL (Negati ve) 09/20/23 02:28 Ur Leukocyte Anjelica ase Negative (Negati ve) 09/20/23 02:28 Salicylates < 0.3 mg/dL (3-10 ) L 09/20/23 02:28 Urine Opiates Scre en Negative ng/mL (N egative) 09/20/23 02:28 Acetaminophen < 5.0 ug/mL (10-3 0) L 09/20/23 02:28 Ur Barbiturates Sc reen Negative ng/mL (N egative) 09/20/23 02:28 Ur Phencyclidine S crn Negative ng/mL (N egative) 09/20/23 02:28 Ur Amphetamines Sc reen Negative ng/mL (N egative) 09/20/23 02:28 U Benzodiazepines Scrn Negative ng/mL (N egative) 09/20/23 02:28 Urine Cocaine Scre en Negative ng/mL (N egative) 09/20/23 02:28 U Marijuana (THC) Screen Negative ng/mL (N egative) 09/20/23 02:28 Ethyl Alcohol < 10 mg/dL (0-10) 09/20/23 02:28 Vitals: Last Vital Signs Temp 97.3 F L 09/23/23 20:03 Pulse 74 09/24/23 06:00 Resp 16 09/24/23 06:00 BP 104/62 09/24/23 06:00 Pulse Ox 96 09/24/23 06:00 O2 Del Method Room Air 09/24/23 06:00 Discharge Plan Discharge Patient Disposition: Home Condition: Stable Prescriptions: New quetiapine 100 mg Tablet 100 mg PO BEDTIME 30 Days Qty: 30 1RF escitalopram oxalate 10 mg Tablet 10 mg PO DAILY 30 Days Qty: 30 1RF Continued emtricitabine-tenofovir (TDF) 200-300 mg tablet See Rx Instructions .ROUTE .COMPLEX Qty: 30 2RF Dose Instruction: TAKE ONE TABLET BY MOUTH EVERY DAY Rx Instructions: TAKE ONE TABLET BY MOUTH EVERY DAY cholecalciferol (vitamin D3) 1,250 mcg (50,000 unit) capsule 50,000 unit PO .weekly Qty: 4 2RF cyanocobalamin (vitamin B-12) 5,000 mcg capsule 5,000 mcg PO DAILY Qty: 30 0RF ondansetron 4 mg tablet,disintegrating 4 mg PO Q8H PRN (Reason: nausea and vomiting) Qty: 10 0RF Discontinued quetiapine 50 mg tablet 50 mg PO DAILY Qty: 30 2RF Rx Instructions: Take one tablet by mouth every day at bedtime. Discharge Orders: Discharge Order (Routine); Ordered 09/24/23 Ordered By: Ab Nathan Referrals: Betzaida Santos FNP-C [Primary Care Provider] - Discharge Diet: Regular Discharge Activity: Resume usual activity Patient Instructions: Opioid Safety Discharge Attestations NPU Time Spent in Discharge Care*: less than 30 min Specific Discharge Activities: Specific discharge activities: educating patient, discussing with block and case maker/social workers/dc planners, documenting/other paperwork and evaluating patient/reviewing data Status at Discharge: Cognitive status at discharge: cognitively intact , Behavioral status at discharge: cooperative , Coding Level of Care Code Acute Code for Chg Fwd Diagnoses Bipolar disorder, unspecified F31.9 Generalized anxiety disorder F41.1 Attention-deficit hyperactivity disorder, predominantly inattentive type F90.0 Anxiety F41.9 Suicidal ideation R45.851 Idiopathic thrombocytopenic purpura (ITP) D69.3 Hyperglycemia R73.9 Vitamin B12 deficiency E53.8
[2023-09-24 08:51] VITALS: BP 104/62; PULSE 74; RESP 16; TEMP 37; O2SAT 96
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
== END 2023-09-24 13:13 | disposition home or self-care (01) | DRG 885 ==
LOC: ER 03:29 → NP 07:58
PROVIDERS: Admitting Provider Psychiatry & Neurology Psychiatry; Emergency Provider Emergency Medicine; PCP Nurse Practitioner Family; Visit Provider Psychiatry & Neurology Psychiatry
DX: F31.9 Bipolar disorder, unspecified (principal); R45.851 Suicidal ideations; Z68.41 Body mass index [BMI] 40.0-44.9, adult; D69.3 Immune thrombocytopenic purpura; Z59.00 Homelessness unspecified; E78.5 Hyperlipidemia, unspecified; E66.01 Morbid (severe) obesity due to excess calories; F41.1 Generalized anxiety disorder; K21.9 Gastro-esophageal reflux disease without esophagitis; J45.909 Unspecified asthma, uncomplicated; F90.0 Attention-deficit hyperactivity disorder, predominantly inattentive type; R73.9 Hyperglycemia, unspecified; E53.8 Deficiency of other specified B group vitamins; Z59.86 Financial insecurity
CPT/HCPCS: 80053; 80306; 80307; 81003; 85025; 97150; 97165; 99285

== ENCOUNTER 2023-09-26 22:52 | Emergency (ER) | payer MEDICAID, SELFPAY ==
[2023-09-26 22:55] VITALS: BP 124/78; PULSE 75; RESP 16; TEMP 36.6; O2SAT 97
[2023-09-27] VITALS (11 sets, daily range): BP systolic 101–132; BP diastolic 50–76; PULSE 53–89; RESP 16–20; O2SAT 92–99
[2023-09-27] MEDS: ondansetron 2 mg/ML SDV 2 mL 4 MG IVP ×2 (02:19→05:46)
[2023-09-27] MEDS: sodium chloride 0.9% 1,000 ML 999 ML IV (02:19)
[2023-09-27 03:05] LABS: Add Urine Microscopic? YES; Bacteria Urine 2+ /hpf; Bilirubin Urine 1+ (Negative); Blood Urine Neg (Negative); Glucose Urine UA Norm (Normal); Hyaline Casts Urine 0-4 /lpf; Ketones Urine 2+ (Negative); Leukocyte Esterase Urine Negative (Negative); Mucus Urine 1+ /hpf; Nitrate Urine Negative (Negative); Protein Urine Trace (Negative); RBC Urine 0-4 /hpf (0-2); Specific Gravity, Urine 1.025 (1.005-1.030); Squamous Epithelial Cell Urine 0-4 /hpf (0-5); Urine Appearance Clear (CLEAR); Urine Color Dark Yellow (Yellow); Urobilinogen Urine 1 mg/dL (Negative); WBC Urine 0-4 /hpf (0-5); pH Urine 5 (5-7)
--- NOTE | 2023-09-27 05:55 | CTR_ITS ---
PROCEDURE INFORMATION: Exam: CT Abdomen And Pelvis With Contrast Exam date and time: 09/27/2023 6:20 AM Age: 33 years old Clinical indication: Abdominal pain; Epigastric; Additional info: Diffuse abdominal pain with nausea and vomiting TECHNIQUE: Imaging protocol: Computed tomography of the abdomen and pelvis with contrast. Radiation optimization: All CT scans at this facility use at least one of these dose optimization techniques: automated exposure control; mA and/or kV adjustment per patient size (includes targeted exams where dose is matched to clinical indication); or iterative reconstruction. Contrast material: OMNI 350; Contrast volume: 100 ml; Contrast route: INTRAVENOUS (IV); COMPARISON: 1. CT chest abdpel w/*[id number] 09/14/2023 9:[address] abdomen pelvis w con* [id number] 02/12/2021 10:20 PM RADIATION DOSE METRICS: Total DLP (mGy-cm): 931.33 FINDINGS: Liver: Normal. No mass. Gallbladder and biliary ducts: Cholelithiasis without CT findings of cholecystitis. No biliary ductal dilatation. Pancreas: Normal. No ductal dilation. Spleen: Prior splenectomy. Adrenal glands: Normal. No mass. Kidneys and ureters: Normal. No hydronephrosis. Stomach and bowel: Unremarkable. No obstruction. No mucosal thickening. Appendix: No evidence of appendicitis. Intraperitoneal space: Unremarkable. No free air. No significant fluid collection. Vasculature: Unremarkable. No abdominal aortic aneurysm. Lymph nodes: Partially visualized prominent left inguinal lymph node measuring 1.3 cm in the short axis. Urinary bladder: Unremarkable as visualized. Reproductive: Unremarkable as visualized. Bones/joints: No acute fracture. Stable anterior wedge morphology of the L1 vertebral body. Soft tissues: Unremarkable. CT/CT abdomen pelvis w con* [id number] IMPRESSION: 1. Cholelithiasis without CT findings of cholecystitis. 2. Partially visualized prominent left inguinal lymph node is nonspecific, possibly reactive.
--- NOTE | 2023-09-27 05:58 | ED_ITS ---
Documented by User: Matthew Alonso DO 09/27/23 06:06 HPI - Abdominal Pain 2 General: Chief Complaint: Abdominal Pain Stated Complaint: N, SOB, Weakness Time Seen by Provider: 09/27/23 01:44 History of Present Illness: The patient presents to the ER with a chief complaint of vomiting twice, which they believe may be related to heat exposure. They report feeling unwell and currently experiencing a sensation of being cold. The vomitus appeared normal without any blood or other abnormalities. The patient also complains of painful urination, which they noticed earlier in the day. They deny any blood in the urine, constipation, or diarrhea, and describe their bowel movements as normal for them. Additionally, the patient reports muscle pain and achiness in the epigastric region. They describe the pain as being worse upon the release of pressure during the physical examination. The patient mentions a history of gallbladder issues but does not provide further details. Review of Systems 2 General: Reports: 10 or more systems reviewed and unremarkable except in HPI and below PFSH ED 2 PFSH: Medical History At risk for HIV due to homosexual contact Broken tooth Peanut allergy Hyperlipidemia Mild cognitive impairment with memory loss Chronic migraine without aura, intractable, with status migrainosus Morbid obesity Vitamin D deficiency, unspecified Urinary hesitancy Calculus of kidney GERD (gastroesophageal reflux disease) Idiopathic thrombocytopenic purpura (ITP) Compression fracture of L1 vertebra with routine healing Other spondylosis with radiculopathy, lumbar region Displacement of lumbar intervertebral disc 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 Asthma Attention-deficit hyperactivity disorder, predominantly inattentive type Generalized anxiety disorder Bipolar disorder, unspecified Surgical History H/O esophagogastroduodenoscopy (11/20/20) Status post colonoscopy (11/20/20) History of hernia repair Hx of tonsillectomy History of splenectomy Family History Mother Cancer Diabetes Family/Other Cancer UNCLE Denies family history of Anesthesia complication Bleeding disorder Social History Smoking and tobacco/nicotine status: never used tobacco/nicotine Second hand smoke exposure: Yes Alcohol intake: never Substance/Drug Use: never Caregiver/support person: Yes Lives independently: No Household members: family Marital status: Single Number of children: 0 service: No Current occupational status: disabled Current gender identity: Male Special law needs: No Physical Exam 2 Const: COMMON NORMALS: no acute distress, patient oriented x3, healthy appearing, alert and well nourished HENMT: COMMON NORMALS: normocephalic HEAD & SCALP: normocephalic Eye: COMMON NORMALS: EOMs intact bilaterally Neck/C-Spine: COMMON NORMALS: full ROM and supple Resp: COMMON NORMALS: normal respiratory effort, No retractions and clear to auscultation bilaterally AUSCULTATION: clear to auscultation bilaterally Cardio: COMMON NORMALS: regular rate, regular rhythm, No gallops present (Cardio) and No murmurs present (Cardio) RATE: regular rate RHYTHM: r egular rhythm GI: COMMON NORMALS: Soft to palpation INSPECTION: Yes normal to inspection AUSCULTATION: Yes normoactive bowel sounds PALPATION: Yes Soft to palpation, Yes Tenderness to palpation present (GI), No Guarding due to palpation present (GI) and No Rebound tenderness present Extremity: GENERAL: Yes normal exam except as noted Neuro: COMMON NORMALS: patient oriented x3 SENSORIUM/ORIENTATION: Yes alert Skin: COMMON NORMALS: no rashes or lesions noted GENERAL SKIN EXAM: no rashes or lesions noted Course 2 Vital Signs: Vital signs: Vital Signs Temperature 97.8 F 09/26/23 22:55 Pulse Rate 53 L 09/27/23 07:46 Respiratory Rate 16 09/27/23 06:30 Blood Pressure 115/76 09/27/23 07:46 Pulse Oximetry 99 09/27/23 07:46 Oxygen Delivery Me thod Room Air 09/27/23 02:25 MDM - Abdominal Pain Medical Decision Making 33-year-old male presents to the emergency department for evaluation of nausea, vomiting, and abdominal pain that started just prior to arrival. He denies fever or dysuria. Patient's exam is not globally impressive. Suspect gastritis versus dehydration. Attempted to provide the patient with hydration and antinausea medicine. He is now endorsing severe abdominal pain. Patient turned over to Dr. Andrew Lab Data 09/27/23 02:11 09/27/23 02:11 Labs/Radiology: Radiology Impressions Abdomen/Pelvis CT 09/27/23 05:55 IMPRESSION: 1. Cholelithiasis without CT findings of cholecystitis. 2. Partially visualized prominent left inguinal lymph node is nonspecific, possibly reactive. Laboratory Results WBC 13.44 10^3/uL (3.29-11.43) H 09/27/23 02:11 RBC 4.82 10^6/uL (3.85-5.65) 09/27/23 02:11 Hgb 15.00 g/dL (11.27-16.99) 09/27/23 02:11 Hct 44.1 % (37-53) 09/27/23 02:11 MCV 91.5 fl (82-101) 09/27/23 02:11 MCH 31.1 pg (27-33) 09/27/23 02:11 MCHC 34.0 g/dL (30-55) 09/27/23 02:11 RDW 13.9 % (12.1-15.1) 09/27/23 02:11 Plt Count 583 10^3/cmm (157-399) H 09/27/23 02:11 MPV 11.5 fL (7.4-10.4) H 09/27/23 02:11 Neut % (Auto) 47.9 % 09/27/23 02:11 Lymph % (Auto) 39.7 % 09/27/23 02:11 [place] % (Auto) 9.7 % 09/27/23 02:11 Eos % (Auto) 1.6 % 09/27/23 02:11 Baso % (Auto) 0.8 % 09/27/23 02:11 Neut # (Auto) 6.43 10^3/uL (1.8-7.7) 09/27/23 02:11 Lymph # (Auto) 5.3 10^3/uL (0.8-4.8) H 09/27/23 02:11 [place] # (Auto) 1.3 10^3/uL (0.2-0.9) H 09/27/23 02:11 Eos # (Auto) 0.2 10^3/uL (0.0-0.8) 09/27/23 02:11 Baso # (Auto) 0.1 10^3/uL (0.0-0.1) 09/27/23 02:11 Nucleated RBC % (auto) 0 % 09/27/23 02:11 Nucleated RBCs # 0.0 /100WBC 09/27/23 02:11 Sodium 137 mmol/L (136-145) 09/27/23 02:11 Potassium 3.8 mmol/L (3.5-5.1) 09/27/23 02:11 Chloride 100 mmol/L (98-107) 09/27/23 02:11 Carbon Dioxide 24 mmol/L (22-29) 09/27/23 02:11 Anion Gap 16.8 (5-19) 09/27/23 02:11 BUN 17 mg/dL (6-20) 09/27/23 02:11 Creatinine 0.6 mg/dL (0.7-1.2) L 09/27/23 02:11 GFR Calculation 156.1 mL/min (90-130) H 09/27/23 02:11 Glucose 84 mg/dL (65-115) 09/27/23 02:11 Calculated Osmolality 285 mOsm/kg (285-295) 09/27/23 02:11 Calcium 9.5 mg/dL (8.5-10.5) 09/27/23 02:11 Total Bilirubin 1.1 mg/dL (0.15-1.2) 09/27/23 02:11 AST 30 U/L (0-40) 09/27/23 02:11 ALT 24 U/L (0-41) 09/27/23 02:11 Alkaline Phosphatase 100 U/L (40-130) 09/27/23 02:11 Total Protein 7.5 g/dL (6.6-8.7) 09/27/23 02:11 Albumin 4.4 g/dL (3.5-5.2) 09/27/23 02:11 Globulin 3.1 g/dL (1.3-4.6) 09/27/23 02:11 Lipase 22 U/L (13-60) 09/27/23 02:11 Urine Color Dark yellow (Yellow) 09/27/23 02:41 Urine Appearance Clear (CLEAR) 09/27/23 02:41 Urine pH 5 (5-7) 09/27/23 02:41 Ur Specific [place] 1.025 (1.005-1.030) 09/27/23 02:41 Urine Protein Trace (Negative) 09/27/23 02:41 Urine Glucose (UA) Norm (Normal) 09/27/23 02:41 Urine Ketones 2+ (Negative) H 09/27/23 02:41 Urine Blood Neg (Negative) 09/27/23 02:41 Urine Nitrate Negative (Negative) 09/27/23 02:41 Urine Bilirubin 1+ (Negative) H 09/27/23 02:41 Urine Urobilinogen 1 mg/dL (Negative) H 09/27/23 02:41 Ur Leukocyte Esterase Negative (Negative) 09/27/23 02:41 Urine RBC 0-4 /hpf (0-2) H 09/27/23 02:41 Urine WBC 0-4 /hpf (0-5) H 09/27/23 02:41 Ur Squamous Epith Cells 0-4 /hpf (0-5) H 09/27/23 02:41 Amorphous Sediment Not Reportable 09/27/23 02:41 Urine Bacteria 2+ /hpf (NONE) H 09/27/23 02:41 Hyaline Casts 0-4 /lpf H 09/27/23 02:41 Urine Mucus 1+ /hpf 09/27/23 02:41 Urine Opiates Screen Negative ng/mL (Negative) 09/27/23 02:41 Ur Barbiturates Screen Negative ng/mL (Negative) 09/27/23 02:41 Ur Phencyclidine Scrn Negative ng/mL (Negative) 09/27/23 02:41 Ur Amphetamines Screen Negative ng/mL (Negative) 09/27/23 02:41 U Benzodiazepines Scrn Negative ng/mL (Negative) 09/27/23 02:41 Urine Cocaine Screen Negative ng/mL (Negative) 09/27/23 02:41 U Marijuana (THC) Screen Negative ng/mL (Negative) 09/27/23 02:41 All radiology interpretation(s) finalized by discharge Discharge Plan Discharge Patient Disposition: Home Clinical Impression: Cholelithiasis, Nausea & vomiting Condition: Stable Prescriptions: New ondansetron 4 mg tablet,disintegrating 4 mg PO Q8H PRN (Reason: nausea and vomiting) Qty: 20 0RF Levsin/SL 0.125 mg tablet, sublingual 0.125 mg sublingual BID PRN (Reason: dyspepsia) Qty: 10 0RF No Action emtricitabine-tenofovir (TDF) 200-300 mg tablet See Rx Instructions .ROUTE .COMPLEX Qty: 30 2RF Dose Instruction: TAKE ONE TABLET BY MOUTH EVERY DAY Rx Instructions: TAKE ONE TABLET BY MOUTH EVERY DAY cholecalciferol (vitamin D3) 1,250 mcg (50,000 unit) capsule 50,000 unit PO .weekly Qty: 4 2RF cyanocobalamin (vitamin B-12) 5,000 mcg capsule 5,000 mcg PO DAILY Qty: 30 0RF quetiapine 100 mg Tablet 100 mg PO BEDTIME 30 Days Qty: 30 1RF escitalopram oxalate 10 mg Tablet 10 mg PO DAILY 30 Days Qty: 30 1RF ondansetron 4 mg tablet,disintegrating 4 mg PO Q8H PRN (Reason: nausea and vomiting) Qty: 10 0RF Discharge Orders: Discharge ED (Routine); Ordered 09/27/23 Ordered By: Marlon Andrew Referrals: Betzaida Santos FNP-C [Primary Care Provider] - Discharge Diet: Advance as tolerated and Clear Liquid Discharge Activity: Increase activity as tolerated Patient Instructions: Biliary Colic (ED), Gallstones (ED), Acute Nausea and Vomiting (ED), Opioid Safety, Pain Management Activity Restrictions/Additional Instructions: Please follow-up with a GI specialist or general surgery for further evaluation of your gallstones. Sign Out Sign Out Data: Patient Sign Out occurred on 09/27/23 at 06:26. Patient's care was discussed, and care was transferred from Matthew Alonso DO to Marlon Andrew DO. 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 [employer] Documented by User: Marlon Andrew DO 09/27/23 08:09 HPI - Abdominal Pain 2 General: Chief Complaint: Abdominal Pain Stated Complaint: N, SOB, Weakness Time Seen by Provider: 09/27/23 01:44 PFS ED 2 PFSH: Medical History At risk for HIV due to homosexual contact Broken tooth Peanut allergy Hyperlipidemia Mild cognitive impairment with memory loss Chronic migraine without aura, intractable, with status migrainosus Morbid obesity Vitamin D deficiency, unspecified Urinary hesitancy Calculus of kidney GERD (gastroesophageal reflux disease) Idiopathic thrombocytopenic purpura (ITP) Compression fracture of L1 vertebra with routine healing Other spondylosis with radiculopathy, lumbar region Displacement of lumbar intervertebral disc 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 Asthma Attention-deficit hyperactivity disorder, predominantly inattentive type Generalized anxiety disorder Bipolar disorder, unspecified Surgical History H/O esophagogastroduodenoscopy (11/20/20) Status post colonoscopy (11/20/20) History of hernia repair Hx of tonsillectomy History of splenectomy Family History Mother Cancer Diabetes Family/Other Cancer UNCLE Denies family history of Anesthesia complication Bleeding disorder Social History Smoking and tobacco/nicotine status: never used tobacco/nicotine Second hand smoke exposure: Yes Alcohol intake: never Substance/Drug Use: never Caregiver/support person: Yes Lives independently: No Household members: family Marital status: Single Number of children: 0 service: No Current occupational status: disabled Current gender identity: Male Special law needs: No Course 2 Vital Signs: Vital signs: Vital Signs Temperature 97.8 F 09/26/23 22:55 Pulse Rate 53 L 09/27/23 07:46 Respiratory Rate 16 09/27/23 06:30 Blood Pressure 115/76 09/27/23 07:46 Pulse Oximetry 99 09/27/23 07:46 Oxygen Delivery Me thod Room Air 09/27/23 02:25 MDM - Abdominal Pain Medical Decision Making 33-year-old male presents to the emergency department for evaluation of nausea, vomiting, and abdominal pain that started just prior to arrival. He denies fever or dysuria. Patient's exam is not globally impressive. Suspect gastritis versus dehydration. Attempted to provide the patient with hydration and antinausea medicine. He is now endorsing severe abdominal pain. Patient turned over to Dr. Andrew Patient's care was assumed at shift change with labs and CT pending. Patient labs showed no significant acute findings or changes from his previous ones. Patient CT shows cholecystitis however patient has had numerous CTs and gallbladder ultrasound recently. At this time he will need to follow-up with a primary care provider and GI specialist/general surgeon regarding his chronic recent abdominal pain and recent visits. Patient to be discharged with Zofran and Levsin for the discomfort. He is stable and discharged home. Lab Data 09/27/23 02:11 09/27/23 02:11 Labs/Radiology: Radiology Impressions Abdomen/Pelvis CT 09/27/23 05:55 IMPRESSION: 1. Cholelithiasis without CT findings of cholecystitis. 2. Partially visualized prominent left inguinal lymph node is nonspecific, possibly reactive. Laboratory Results WBC 13.44 10^3/uL (3.29-11.43) H 09/27/23 02:11 RBC 4.82 10^6/uL (3.85-5.65) 09/27/23 02:11 Hgb 15.00 g/dL (11.27-16.99) 09/27/23 02:11 Hct 44.1 % (37-53) 09/27/23 02:11 MCV 91.5 fl (82-101) 09/27/23 02:11 MCH 31.1 pg (27-33) 09/27/23 02:11 MCHC 34.0 g/dL (30-55) 09/27/23 02:11 RDW 13.9 % (12.1-15.1) 09/27/23 02:11 Plt Count 583 10^3/cmm (157-399) H 09/27/23 02:11 MPV 11.5 fL (7.4-10.4) H 09/27/23 02:11 Neut % (Auto) 47.9 % 09/27/23 02:11 Lymph % (Auto) 39.7 % 09/27/23 02:11 [place] % (Auto) 9.7 % 09/27/23 02:11 Eos % (Auto) 1.6 % 09/27/23 02:11 Baso % (Auto) 0.8 % 09/27/23 02:11 Neut # (Auto) 6.43 10^3/uL (1.8-7.7) 09/27/23 02:11 Lymph # (Auto) 5.3 10^3/uL (0.8-4.8) H 09/27/23 02:11 [place] # (Auto) 1.3 10^3/uL (0.2-0.9) H 09/27/23 02:11 Eos # (Auto) 0.2 10^3/uL (0.0-0.8) 09/27/23 02:11 Baso # (Auto) 0.1 10^3/uL (0.0-0.1) 09/27/23 02:11 Nucleated RBC % (auto) 0 % 09/27/23 02:11 Nucleated RBCs # 0.0 /100WBC 09/27/23 02:11 Sodium 137 mmol/L (136-145) 09/27/23 02:11 Potassium 3.8 mmol/L (3.5-5.1) 09/27/23 02:11 Chloride 100 mmol/L (98-107) 09/27/23 02:11 Carbon Dioxide 24 mmol/L (22-29) 09/27/23 02:11 Anion Gap 16.8 (5-19) 09/27/23 02:11 BUN 17 mg/dL (6-20) 09/27/23 02:11 Creatinine 0.6 mg/dL (0.7-1.2) L 09/27/23 02:11 GFR Calculation 156.1 mL/min (90-130) H 09/27/23 02:11 Glucose 84 mg/dL (65-115) 09/27/23 02:11 Calculated Osmolality 285 mOsm/kg (285-295) 09/27/23 02:11 Calcium 9.5 mg/dL (8.5-10.5) 09/27/23 02:11 Total Bilirubin 1.1 mg/dL (0.15-1.2) 09/27/23 02:11 AST 30 U/L (0-40) 09/27/23 02:11 ALT 24 U/L (0-41) 09/27/23 02:11 Alkaline Phosphatase 100 U/L (40-130) 09/27/23 02:11 Total Protein 7.5 g/dL (6.6-8.7) 09/27/23 02:11 Albumin 4.4 g/dL (3.5-5.2) 09/27/23 02:11 Globulin 3.1 g/dL (1.3-4.6) 09/27/23 02:11 Lipase 22 U/L (13-60) 09/27/23 02:11 Urine Color Dark yellow (Yellow) 09/27/23 02:41 Urine Appearance Clear (CLEAR) 09/27/23 02:41 Urine pH 5 (5-7) 09/27/23 02:41 Ur Specific [place] 1.025 (1.005-1.030) 09/27/23 02:41 Urine Protein Trace (Negative) 09/27/23 02:41 Urine Glucose (UA) Norm (Normal) 09/27/23 02:41 Urine Ketones 2+ (Negative) H 09/27/23 02:41 Urine Blood Neg (Negative) 09/27/23 02:41 Urine Nitrate Negative (Negative) 09/27/23 02:41 Urine Bilirubin 1+ (Negative) H 09/27/23 02:41 Urine Urobilinogen 1 mg/dL (Negative) H 09/27/23 02:41 Ur Leukocyte Esterase Negative (Negative) 09/27/23 02:41 Urine RBC 0-4 /hpf (0-2) H 09/27/23 02:41 Urine WBC 0-4 /hpf (0-5) H 09/27/23 02:41 Ur Squamous Epith Cells 0-4 /hpf (0-5) H 09/27/23 02:41 Amorphous Sediment Not Reportable 09/27/23 02:41 Urine Bacteria 2+ /hpf (NONE) H 09/27/23 02:41 Hyaline Casts 0-4 /lpf H 09/27/23 02:41 Urine Mucus 1+ /hpf 09/27/23 02:41 Urine Opiates Screen Negative ng/mL (Negative) 09/27/23 02:41 Ur Barbiturates Screen Negative ng/mL (Negative) 09/27/23 02:41 Ur Phencyclidine Scrn Negative ng/mL (Negative) 09/27/23 02:41 Ur Amphetamines Screen Negative ng/mL (Negative) 09/27/23 02:41 U Benzodiazepines Scrn Negative ng/mL (Negative) 09/27/23 02:41 Urine Cocaine Screen Negative ng/mL (Negative) 09/27/23 02:41 U Marijuana (THC) Screen Negative ng/mL (Negative) 09/27/23 02:41 Discharge Plan Discharge Patient Disposition: Home Clinical Impression: Cholelithiasis, Nausea & vomiting Condition: Stable Prescriptions: New ondansetron 4 mg tablet,disintegrating 4 mg PO Q8H PRN (Reason: nausea and vomiting) Qty: 20 0RF Levsin/SL 0.125 mg tablet, sublingual 0.125 mg sublingual BID PRN (Reason: dyspepsia) Qty: 10 0RF No Action emtricitabine-tenofovir (TDF) 200-300 mg tablet See Rx Instructions .ROUTE .COMPLEX Qty: 30 2RF Dose Instruction: TAKE ONE TABLET BY MOUTH EVERY DAY Rx Instructions: TAKE ONE TABLET BY MOUTH EVERY DAY cholecalciferol (vitamin D3) 1,250 mcg (50,000 unit) capsule 50,000 unit PO .weekly Qty: 4 2RF cyanocobalamin (vitamin B-12) 5,000 mcg capsule 5,000 mcg PO DAILY Qty: 30 0RF quetiapine 100 mg Tablet 100 mg PO BEDTIME 30 Days Qty: 30 1RF escitalopram oxalate 10 mg Tablet 10 mg PO DAILY 30 Days Qty: 30 1RF ondansetron 4 mg tablet,disintegrating 4 mg PO Q8H PRN (Reason: nausea and vomiting) Qty: 10 0RF Discharge Orders: Discharge ED (Routine); Ordered 09/27/23 Ordered By: Marlon Andrew Referrals: Betzaida Santos FNP-C [Primary Care Provider] - Discharge Diet: Advance as tolerated and Clear Liquid Discharge Activity: Increase activity as tolerated Patient Instructions: Biliary Colic (ED), Gallstones (ED), Acute Nausea and Vomiting (ED), Opioid Safety, Pain Management Activity Restrictions/Additional Instructions: Please follow-up with a GI specialist or general surgery for further evaluation of your gallstones. Sign Out Sign Out Data: Patient Sign Out occurred on 09/27/23 at 06:26. Patient's care was discussed, and care was transferred from Matthew Alonso DO to Marlon Andrew DO. 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
[2023-09-27 06:03] LABS: Basophils # 0.1 10^3/uL (0.0-0.1); Basophils % 0.8 %; Eosinophils # 0.2 10^3/uL (0.0-0.8); Eosinophils % 1.6 %; Hematocrit 44.1 % (37-53); Lymphocytes # 5.3 10^3/uL (0.8-4.8); Lymphocytes % 39.7 %; Mean Corpuscular Hemoglobin 31.1 pg (27-33); Mean Corpuscular Volume 91.5 fl (82-101); Mean Platelet Volume 11.5 fL (7.4-10.4); Monocytes # 1.3 10^3/uL (0.2-0.9); Monocytes % 9.7 %; Neutrophils # 6.43 10^3/uL (1.8-7.7); Neutrophils % 47.9 %; Nucleated Red Blood Cells % 0 %; Platelet Count 583 10^3/cmm (157-399); Red Blood Count 4.82 10^6/uL (3.85-5.65); Red Cell Distribution Width 13.9 % (12.1-15.1); White Blood Count 13.44 10^3/uL (3.29-11.43)
[2023-09-27 06:12] LABS: Alanine Aminotransferase 24 U/L (0-41); Albumin Level 4.4 g/dL (3.5-5.2); Alkaline Phosphatase 100 U/L (40-130); Blood Urea Nitrogen 17 mg/dL (6-20); Calcium 9.5 mg/dL (8.5-10.5); Carbon Dioxide 24 mmol/L (22-29); Chloride 100 mmol/L (98-107); Globulin 3.1 g/dL (1.3-4.6); Glomerular Filtration Rate 156.1 mL/min (90-130); Glucose 84 mg/dL (65-115); Lipase 22 U/L (13-60); Osmolality Calculated 285 mOsm/kg (285-295); Sodium 137 mmol/L (136-145); Total Bilirubin 1.1 mg/dL (0.15-1.2); Total Protein 7.5 g/dL (6.6-8.7)
[2023-09-27 06:13] LABS: Anion Gap 16.8 (5-19); Aspartate Amino Transferase 30 U/L (0-40); Potassium 3.8 mmol/L (3.5-5.1)
[2023-09-27 06:21] LABS: Amphetamines Screen Urine Negative (Negative); Barbiturates Screen Urine Negative (Negative); Benzodiazepines Screen Urine Negative (Negative); Cocaine Screen Urine Negative (Negative); Opiate Screen Urine Negative (Negative); PCP Screen Urine Negative (Negative); THC Screen Urine Negative (Negative)
[2023-09-27] MEDS: iohexol 350 mg/mL 500 mL Btl (per mL) IV (06:22)
--- NOTE | 2023-09-27 08:40 | PC.NURSE ---
PRESCRIPTIONS CALLED INTO [facility] DUE TO PRESCRIBING PROVIDER UNABLE TO E-SCRIBE MEDICATIONS AND AN ERROR WITH THE PRESCRIPTIONS NOT BEING PRINTED ON THE CORRECT PAPER.
== END 2023-09-27 08:46 | disposition home or self-care (01) ==
PROVIDERS: General Practice; Emergency Provider Student in an Organized Health Care Education/Training Program; PCP Nurse Practitioner Family
DX: K80.20 Calculus of gallbladder without cholecystitis without obstruction (principal); R11.2 Nausea with vomiting, unspecified; Z77.22 Contact with and (suspected) exposure to environmental tobacco smoke (acute) (chronic); E78.5 Hyperlipidemia, unspecified
CPT/HCPCS: 74177; 80053; 80306; 81001; 83690; 85025; 96361; 96374; 96376; 99285; J2405; J7030; Q9967

== ENCOUNTER 2023-09-29 09:02 | Emergency (ER) | payer MEDICAID, SELFPAY ==
[2023-09-29 09:07] VITALS: BP 117/71; PULSE 92; RESP 16; TEMP 36.8; O2SAT 96; BMI 36.2
--- NOTE | 2023-09-29 09:09 | ED_ITS ---
HPI - Abdominal Pain General: Stated Complaint: abd pain Time Seen by Provider: 09/29/23 09:04 [facility] PFSH: Medical History At risk for HIV due to homosexual contact Broken tooth Peanut allergy Hyperlipidemia Mild cognitive impairment with memory loss Chronic migraine without aura, intractable, with status migrainosus Morbid obesity Vitamin D deficiency, unspecified Urinary hesitancy Calculus of kidney GERD (gastroesophageal reflux disease) Idiopathic thrombocytopenic purpura (ITP) Compression fracture of L1 vertebra with routine healing Other spondylosis with radiculopathy, lumbar region Displacement of lumbar intervertebral disc 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 Asthma Attention-deficit hyperactivity disorder, predominantly inattentive type Generalized anxiety disorder Bipolar disorder, unspecified Surgical History H/O esophagogastroduodenoscopy (11/20/20) Status post colonoscopy (11/20/20) History of hernia repair Hx of tonsillectomy History of splenectomy Family History Mother Cancer Diabetes Family/Other Cancer UNCLE Denies family history of Anesthesia complication Bleeding disorder Social History Smoking and tobacco/nicotine status: never used tobacco/nicotine Second hand smoke exposure: Yes Alcohol intake: never Substance/Drug Use: never Caregiver/support person: Yes Lives independently: No Household members: family Marital status: Single Number of children: 0 service: No Current occupational status: disabled Current gender identity: Male Special law needs: No Discharge Plan Discharge Condition: Stable Prescriptions: No Action emtricitabine-tenofovir (TDF) 200-300 mg tablet See Rx Instructions .ROUTE .COMPLEX Qty: 30 2RF Dose Instruction: TAKE ONE TABLET BY MOUTH EVERY DAY Rx Instructions: TAKE ONE TABLET BY MOUTH EVERY DAY cholecalciferol (vitamin D3) 1,250 mcg (50,000 unit) capsule 50,000 unit PO .weekly Qty: 4 2RF albuterol sulfate 90 mcg/actuation HFA aerosol inhaler 2 puff inhalation Q6H PRN cyanocobalamin (vitamin B-12) 5,000 mcg capsule 5,000 mcg PO DAILY Qty: 30 0RF quetiapine 100 mg Tablet 100 mg PO BEDTIME 30 Days Qty: 30 1RF escitalopram oxalate 10 mg Tablet 10 mg PO DAILY 30 Days Qty: 30 1RF ondansetron 4 mg tablet,disintegrating 4 mg PO Q8H PRN (Reason: nausea and vomiting) Qty: 20 0RF ondansetron 4 mg tablet,disintegrating 4 mg PO Q8H PRN (Reason: nausea and vomiting) Qty: 10 0RF Coding Level of Care Code ED [employer] for [employer]
--- NOTE | 2023-09-29 09:43 | W.ED.ABDPA2 ---
HPI - Abdominal Pain General: Chief Complaint: Abdominal Pain Stated Complaint: abd pain Time Seen by Provider: 09/29/23 09:04 Source: patient Mode of arrival: ambulatory Limitations: no limitations History of Present Illness: Patient is a 33-year-old male who presents to ED today for complaint of right upper quadrant abdominal pain. I received a call from Dr. Sanches who had just seen patient in his office prior to patient's arrival in the ED. Surgeon had requested blood work, IV antibiotics, and admission to the hospital for cholecystectomy. Patient was recently seen here in our facility and diagnosed with cholelithiasis. MD elicited complaint: abdominal pain Onset (ago): day(s) Pain Consistency: constant Location: RUQ Associated Symptoms: Reports nausea and vomiting; Denies diarrhea and fever(s) Review of Systems Const: Denies: fever(s) Card: Denies: chest pain Resp: Denies: dyspnea GI: Reports: abdominal pain, nausea and vomiting; Denies: diarrhea PFSH ED PFSH: Medical History At risk for HIV due to homosexual contact Broken tooth Peanut allergy Hyperlipidemia Mild cognitive impairment with memory loss Chronic migraine without aura, intractable, with status migrainosus Morbid obesity Vitamin D deficiency, unspecified Urinary hesitancy Calculus of kidney GERD (gastroesophageal reflux disease) Idiopathic thrombocytopenic purpura (ITP) Compression fracture of L1 vertebra with routine healing Other spondylosis with radiculopathy, lumbar region Displacement of lumbar intervertebral disc 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 Asthma Attention-deficit hyperactivity disorder, predominantly inattentive type Generalized anxiety disorder Bipolar disorder, unspecified Surgical History H/O esophagogastroduodenoscopy (11/20/20) Status post colonoscopy (11/20/20) History of hernia repair Hx of tonsillectomy History of splenectomy Family History Mother Cancer Diabetes Family/Other Cancer UNCLE Denies family history of Anesthesia complication Bleeding disorder Social History Smoking and tobacco/nicotine status: never used tobacco/nicotine Second hand smoke exposure: Yes Alcohol intake: never Substance/Drug Use: never Caregiver/support person: Yes Lives independently: No Household members: family Marital status: Single Number of children: 0 service: No Current occupational status: disabled Current gender identity: Male Special law needs: No Physical Exam Const: COMMON NORMALS: no acute distress, patient oriented x3, no limitations, alert and well nourished GENERAL APPEARANCE: cooperative NUTRITIONAL APPEARANCE: overweight Eye: COMMON NORMALS: no scleral icterus Resp: COMMON NORMALS: normal respiratory effort Cardio: COMMON NORMALS: regular rate and regular rhythm RATE: regular rate RHYTHM: regular rhythm GI: COMMON NORMALS: Normal to inspection, nondistended, normoactive bowel sounds present and Soft to palpation INSPECTION: Yes normal to inspection PALPATION: Yes Soft to palpation and Yes Tenderness to palpation present (GI) Details: RUQ Neuro: COMMON NORMALS: patient oriented x3 SENSORIUM/ORIENTATION: Yes alert Course Vital Signs: Vital signs: Vital Signs Temperature 98.3 F 09/29/23 09:07 Pulse Rate 92 09/29/23 09:07 Respiratory Rate 16 09/29/23 09:07 Blood Pressure 117/71 09/29/23 09:07 Pulse Oximetry 96 09/29/23 09:07 Oxygen Delivery Me thod Room Air 09/29/23 09:07 MDM - Abdominal Pain Medical Decision Making As soon as patient arrived in the emergency department Dr. Sanches called back and stated there were no beds in the hospital at this time so he is requesting patient be discharged back to his office. He will call him in PO antibiotics, pain meds, nausea meds and he will schedule him for a cholecystectomy outpatient tomorrow. Elva, ED RN proof machine operator supervisor requested I still do a screening examination on patient since he did present to the ED. They will reportedly remove the ED charge associated with this. Differential Diagnosis Likely abdominal pain No radiology studies performed this visit Discharge Plan Discharge Patient Disposition: Home Clinical Impression: Abdominal pain, RUQ Condition: Stable Prescriptions: No Action emtricitabine-tenofovir (TDF) 200-300 mg tablet See Rx Instructions .ROUTE .COMPLEX Qty: 30 2RF Dose Instruction: TAKE ONE TABLET BY MOUTH EVERY DAY Rx Instructions: TAKE ONE TABLET BY MOUTH EVERY DAY cholecalciferol (vitamin D3) 1,250 mcg (50,000 unit) capsule 50,000 unit PO .weekly Qty: 4 2RF albuterol sulfate 90 mcg/actuation HFA aerosol inhaler 2 puff inhalation Q6H PRN clindamycin HCl 150 mg capsule 150 mg PO QID 10 Days Qty: 40 0RF cyanocobalamin (vitamin B-12) 5,000 mcg capsule 5,000 mcg PO DAILY Qty: 30 0RF quetiapine 100 mg Tablet 100 mg PO BEDTIME 30 Days Qty: 30 1RF escitalopram oxalate 10 mg Tablet 10 mg PO DAILY 30 Days Qty: 30 1RF ondansetron 4 mg tablet,disintegrating 4 mg PO Q8H PRN (Reason: nausea and vomiting) Qty: 20 0RF ondansetron 4 mg tablet,disintegrating 4 mg PO Q8H PRN (Reason: nausea and vomiting) Qty: 10 0RF Discharge Orders: Discharge ED (Routine); Ordered 09/29/23 Ordered By: Alessandra Serrato Patient Instructions: Abdominal Pain (ED) Coding Level of Care Code ED Computer Operator for Travis Landrum
== END 2023-09-29 09:59 | disposition home or self-care (01) ==
PROVIDERS: Emergency Provider Physician Assistant
DX: R10.11 Right upper quadrant pain (principal); E78.5 Hyperlipidemia, unspecified; Z77.22 Contact with and (suspected) exposure to environmental tobacco smoke (acute) (chronic); Z87.442 Personal history of urinary calculi; K80.10 Calculus of gallbladder with chronic cholecystitis without obstruction
CPT/HCPCS: 99204; 99214; 99281

== ENCOUNTER 2023-09-30 05:38 | Day surgery (SDC) | payer MEDICAID, SELFPAY ==
[2023-09-30] VITALS (12 sets, daily range): BP systolic 105–156; BP diastolic 57–90; PULSE 48–117; RESP 15–30; TEMP 36.2–36.4; O2SAT 90–98; BMI 36.1
--- NOTE | 2023-09-30 06:51 | ECG_ITS ---
[facility] Test Date: 2023-09-30 Pat Name: Willi Meadows Department: Room: Gender: Male Key Sander: : 1990 Requested By: Mayelin Chan Order Number: [id number] Page MD: Sofya Xiao M.D. Measurements Intervals [place] Rate: 53 P: 12 NH: 167 QRS: 34 QRSD: 101 T: 16 QT: 441 QTc: 417 Interpretive Statements SINUS BRADYCARDIA WITH SINUS ARRHYTHMIA INTERPRETATION BASED ON A DEFAULT AGE OF 40 YEARS No previous ECG available for comparison Electronically Signed On 09-30-2023 23:56:30 CDT by Sofya Xiao M.D. [id number] f
--- NOTE | 2023-09-30 06:56 | W.PM.OPSUD ---
Surgery/Procedure H&P Update DATE OF PROCEDURE: September 30, 2023 DATE H&P PERFORMED: 09/29/23 H&P UPDATE INFORMATION: I have reviewed H&P completed within last 30 days, I have examined patient prior to procedure and No changes to prior documentation PLANNED PROCEDURE: Operation Date: 09/30/23 07:00 Proposed Procedures p Laparoscopic Cholecystectomy 92255, K80.20(Not Applicable) - Will Sanches,
--- NOTE | 2023-09-30 06:58 | P.ANESASSM_ITS ---
Pre-Anesthetic Assessment Height/Weight: Height 1.7 m Weight 104.78 kg Temp Pulse Resp BP Pulse Ox O2 Del Method 97.5 F L 117 H 18 114/72 97 Room Air 09/30/23 06:52 09/30/23 06:52 09/30/23 06:52 09/30/23 06:52 09/30/23 06:52 09/30/23 06:52 Operation Date: 09/30/23 07:00 Proposed Procedures p Laparoscopic Cholecystectomy 28050, K80.20(Not Applicable) - Will Sanches DO Familial anesthetic complications: morphine caused heart to stop resulting in CPR - further questioning reveals patient was hooked up to IVPCA and his mother was pushing the button for him every 15 minutes after a large hernia surgery. 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 Hx ITP GI Gastroesophageal Reflux Disease Anesthetic Plan ASA status: 4 Anesthesia: General Risk of > 500 ml blood loss (7ml/kg in children): No Medications/Allergies Home Medications Medication Instructions Recorded Confirmed Last Taken Type cholecalciferol (vitamin D3) 1,250 50,000 unit PO .weekly #4 caps 08/13/23 09/29/23 09/29/23 Rx mcg (50,000 unit) capsule cyanocobalamin (vitamin B-12) 5,000 mcg PO DAILY #30 caps 09/15/23 09/29/23 09/29/23 Rx 5,000 mcg capsule escitalopram oxalate 10 mg tablet 10 mg PO DAILY 30 days #30 tabs 09/24/23 09/29/23 09/29/23 Rx quetiapine 100 mg tablet 100 mg PO BEDTIME 30 days #30 tabs 09/24/23 09/29/23 09/28/23 Rx albuterol sulfate 90 mcg/actuation 2 puff inhalation Q6H PRN 09/29/23 09/29/23 Unknown History aerosol inhaler Shortness Of Breath budesonide 0.5 mg/2 mL suspension 0.5 mg inhalation BID 09/29/23 09/30/23 Unknown History for nebulization clindamycin HCl 150 mg capsule 150 mg PO QID 10 days #40 caps 09/29/23 09/29/23 09/29/23 Rx emtricitabine 200 mg-tenofovir 1 tab PO DAILY 09/29/23 09/29/23 09/29/23 History disoproxil fumarate 300 mg tablet hydrocodone 7.5 mg-acetaminophen 1 tab PO Q6H PRN pain 7 days #28 09/29/23 09/29/23 Unknown Rx 325 mg tablet tabs ondansetron 4 mg disintegrating 4 mg PO Q8H PRN nausea and 09/29/23 09/29/23 Unknown Rx tablet vomiting #20 tabs Allergies Allergy/AdvReac Type Severity Reaction Status Date / Time aripiprazole [From Abilify] Allergy Severe anaphylaxsi Verified 09/29/23 15:25 s insect venom Allergy Severe respiratory Verified 09/29/23 15:25 distress Milk Containing Products Allergy Severe diahrrea Verified 09/29/23 15:25 (Dairy) [Milk Containing Products] morphine Allergy Severe stops heart Verified 09/29/23 15:25 peanut Allergy Severe anaphylaxsis, Verified 09/29/23 15:25 hives Penicillins Allergy Severe ALGY-Anaphy Verified 09/29/23 15:25 laxis adhesive tape Allergy Mild rash and Verified 09/29/23 15:25 swelling procaine [From Novocain] Allergy brain Verified 09/29/23 15:25 becomes foggy latex AdvReac Severe rash, edema Verified 09/29/23 15:25 divalproex sodium AdvReac Mild ADR-Photose Verified 09/29/23 15:25 [From Depakote] ns[facility] Medical History (Updated 09/29/23 @ 16:12 by Millie Valerio) Psychiatric care At risk for HIV due to homosexual contact Broken tooth Peanut allergy Hyperlipidemia Mild cognitive impairment with memory loss Chronic migraine without aura, intractable, with status migrainosus Morbid obesity Vitamin D deficiency, unspecified Urinary hesitancy Calculus of kidney GERD (gastroesophageal reflux disease) Idiopathic thrombocytopenic purpura (ITP) Compression fracture of L1 vertebra with routine healing Other spondylosis with radiculopathy, lumbar region Displacement of lumbar intervertebral disc 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 Asthma Attention-deficit hyperactivity disorder, predominantly inattentive type Generalized anxiety disorder Bipolar disorder, unspecified Surgical History H/O esophagogastroduodenoscopy (11/20/20) Status post colonoscopy (11/20/20) History of hernia repair Hx of tonsillectomy History of splenectomy Family History Mother Cancer Diabetes Family/Other Cancer UNCLE Denies family history of Anesthesia complication Bleeding disorder Social History Smoking and tobacco/nicotine status: never used tobacco/nicotine Second hand smoke exposure: Yes Alcohol intake: never Substance/Drug Use: never Caregiver/support person: Yes Lives independently: No Household members: family Marital status: Single Number of children: 0 service: No Current occupational status: disabled Current gender identity: Male Special law needs: No Data Anesthesia Cardiac Studies: No Data to Display
[2023-09-30] MEDS: levofloxacin-dextrose 5 % 500 MG/100 ML PREMIX 100 MG IV (07:00)
[2023-09-30] MEDS: lidocaine-epi 1% 20 mL INJ INJECTION (07:27)
--- NOTE | 2023-09-30 07:38 | P.OP_ITS ---
Operative Report Date of procedure: September 30, 2023 Surgeon: Will Sanches DO Procedure: Preoperative diagnosis: Acute cholecystitis with cholelithiasis Postoperative diagnosis: Symptomatic cholelithiasis Procedure performed: Laparoscopic cholecystectomy Surgeon: Dr. Will Sanches DO Estimated blood loss: 5 mL Specimens: Gallbladder to pathology Complications: None apparent Description of procedure: Patient was wheeled into the operative room and placed on the OR table in a supine position. Abdomen was inspected prepped and draped in usual sterile fashion. Time-out was performed and all present were in agreement. A 15 blade scalp was used to make a stab incision in the left upper quadrant and intra- abdominal insufflation was achieved using a Veress needle. After localizing the tissue incisions were made and a 5 millimeter trocar was placed into the umbilicus as well as 2 in the right upper quadrant. A 12 millimeter trocar was placed in the epigastrium. Gallbladder was grasped and elevated. The triangle of Calot was carefully dissected using blunt dissection and electrocautery until the triangle of Calot clearly identified. The cystic duct was clipped proximally and double clipped distally. The duct was then ligated proximally. The cystic artery was doubly clipped and ligated. The gallbladder was then removed from the liver bed using electrocautery. The gallbladder was removed from the abdomen using an Endo-Catch bag through the epigastric incision. The liver bed was inspected and no bleeding was seen. The abdomen was irrigated and suctioned. All ports removed. Skin was washed and dried. Incisions were closed with 4-0 Monocryl in a subcuticular interrupted fashion. Skin glue was applied. Patient tolerated the procedure well.
[2023-09-30] MEDS: HYDROcodone-acetaminophen 7.5-325 mg Tablet 1 TAB PO (08:46)
[2023-09-30] MEDS: sodium chloride 0.9% 1,000 ML 30 ML IV (08:48)
--- NOTE | 2023-09-30 09:35 | ANE.PACU2 ---
Inpatient post-anesthesia follow up: Airway intact: Yes Vital signs: Temperature 97.1 F Pulse Rate 49 Respiratory Rate 18 Blood Pressure 110/80 Pulse Oximetry 93 Oxygen Delivery Me thod Room Air Oxygen Flow Rate 6 Fraction of Inspir ed Oxygen Hydration adequate: Yes Nausea and vomiting: No Pain level: 1 Mental status: Baseline
== END 2023-09-30 09:35 | disposition home or self-care (01) ==
PROVIDERS: PCP Family Medicine; Visit Provider Surgery
PROC: 0FT44ZZ Resection of Gallbladder, Percutaneous Endoscopic Approach (ICD-10-PCS; CPT 47562; principal; 2023-09-30 07:00)
DX: K80.10 Calculus of gallbladder with chronic cholecystitis without obstruction (principal); G47.30 Sleep apnea, unspecified; K21.9 Gastro-esophageal reflux disease without esophagitis; E78.5 Hyperlipidemia, unspecified; E66.01 Morbid (severe) obesity due to excess calories; Z68.36 Body mass index [BMI] 36.0-36.9, adult
CPT/HCPCS: 47562; 88304; 93005; J0131; J1100; J1956; J2250; J2405; J2704; J3010; J3490; J7030

== ENCOUNTER → 2024-01-05 14:16 | Outpatient (BNVA) | payer MEDICAID, SELFPAY | PROVIDERS: PCP Nurse Practitioner Family; Visit Provider Surgery | DX: K92.1 Melena (principal); K52.9 Noninfective gastroenteritis and colitis, unspecified; R10.13 Epigastric pain | CPT/HCPCS: 99214 ==

== ENCOUNTER 2024-01-28 06:28 | Day surgery (SDC) | payer MEDICAID, SELFPAY ==
[2024-01-28 06:32] VITALS: BMI 40.7
[2024-01-28 06:45] VITALS: BP 116/78; PULSE 75; RESP 18; TEMP 36.9; O2SAT 96
[2024-01-28] MEDS: sodium chloride 0.9% 1,000 ML 30 ML IV (06:49)
--- NOTE | 2024-01-28 06:52 | ANES.PREANE2 ---
Pre-Anesthetic Assessment Height/Weight: Height 1.65 m Weight 111.13 kg Temp Pulse Resp BP Pulse Ox O2 Del Method 98.5 F 75 18 116/78 96 Room Air 01/28/24 06:45 01/28/24 06:45 01/28/24 06:45 01/28/24 06:45 01/28/24 06:45 01/28/24 06:45 Preop Diagnosis: Melena Chronic Diarrhea Operation Date: 01/28/24 07:15 Proposed Procedures p EGD 23128, 78200, G0105, K92.1, K52.9, R10.13(Not Applicable) - Will Sanches DO s Colonoscopy(Not Applicable) - Will Sanches DO Familial anesthetic complications: none Was Beta Ashanti taken within 24 hours: N/A Was Clonidine taken within 24 hours: N/A Last intake: Intake Last Liquid Date 01/27/24 Last Liquid Time 20:00 Last Solid Date 01/29/24 Last Solid Time 18:00 Social No alcohol and No tobacco Exam alert, oriented x 3, clear to auscultation bilaterally and regular rate & rhythm Airway Submandibular: within normal limits Cervical ROM: within normal limits Mallampati: Class II Dentition: chipped Comments: Comments: multiple chipped teeth including front teeth. Pulmonary Asthma and Sleep Apnea (diagnosed non-compliant with cpap) pathak parkinson's white no medications noted. Hepatic None reported GI Gastroesophageal Reflux Disease Melena, Chronic Diarrhea, Epigastric Pain. Metabolic Morbid Ob[place] [facility] [place] None reported Neuropsych Anxiety, Bipolar and Depression Anesthetic Plan ASA status: 3 Anesthesia: MAC Medications/Allergies Home Medications Medication Instructions Recorded Confirmed Last Taken Type cholecalciferol (vitamin D3) 1,250 50,000 unit PO .weekly #4 caps 08/13/23 01/26/24 01/20/24 Rx mcg (50,000 unit) capsule cyanocobalamin (vitamin B-12) 5,000 mcg PO DAILY #30 caps 09/15/23 01/26/24 01/26/24 Rx 5,000 mcg capsule escitalopram oxalate 10 mg tablet 10 mg PO DAILY 30 days #30 tabs 09/24/23 01/26/24 01/26/24 Rx quetiapine 100 mg tablet 100 mg PO BEDTIME 30 days #30 tabs 09/24/23 01/26/24 01/26/24 Rx albuterol sulfate 90 mcg/actuation 2 puff inhalation Q6H PRN 09/29/23 01/26/24 01/25/24 History aerosol inhaler Shortness Of Breath budesonide 0.5 mg/2 mL suspension 0.5 mg inhalation BID PRN 09/29/23 01/26/24 Unknown History for nebulization Shortness Of Breath emtricitabine 200 mg-tenofovir 1 tab PO DAILY 09/29/23 01/26/24 01/26/24 History disoproxil fumarate 300 mg tablet pantoprazole 40 mg tablet,delayed 40 mg PO BID 6 weeks #84 tabs 01/05/24 01/26/24 01/26/24 Rx release (Protonix) fluticasone propionate 50 2 spray intranasal DAILY PRN 01/26/24 01/26/24 01/26/24 History mcg/actuation nasal Allergy Symptoms spray,suspension montelukast 10 mg tablet 10 mg PO DAILY PRN Allergy Symptoms 01/26/24 01/26/24 01/26/24 History tiotropium bromide 2.5 2 puff inhalation DAILY 01/26/24 01/26/24 01/26/24 History mcg/actuation mist for inhalation (Spiriva Respimat) Allergies Allergy/AdvReac Type Severity Reaction Status Date / Time aripiprazole [From Abilify] Allergy Severe anaphylaxsi Verified 01/05/24 14:55 s insect venom Allergy Severe respiratory Verified 01/05/24 14:55 distress Milk Containing Products Allergy Severe diahrrea Verified 01/05/24 14:55 (Dairy) [Milk Containing Products] morphine Allergy Severe stops heart Verified 01/05/24 14:55 peanut Allergy Severe anaphylaxsis, Verified 01/05/24 14:55 hives Penicillins Allergy Severe ALGY-Anaphy Verified 01/05/24 14:55 laxis adhesive tape Allergy Mild rash and Verified 01/05/24 14:55 swelling procaine [From Novocain] Allergy brain Verified 01/05/24 14:55 becomes foggy latex AdvReac Severe rash, edema Verified 01/05/24 14:55 divalproex sodium AdvReac Mild ADR-Photose Verified 01/05/24 14:55 [From Depakote] nsitivity Current Medications Generic Name Dose Route Start Last Admin Trade Name Freq PRN Reason Stop Dose Admin Sodium Chloride 1,000 mls @ 30 mls/hr 01/28/24 06:30 01/28/24 06:49 Sodium Chloride 0.9% IV 01/29/24 06:29 30 mls/hr .Q24H YADIRA Administration PFSH Anesthesia Medical History Psychiatric care At risk for HIV due to homosexual contact Broken tooth Peanut allergy Hyperlipidemia Mild cognitive impairment with memory loss Chronic migraine without aura, intractable, with status migrainosus Morbid obesity Vitamin D deficiency, unspecified Urinary hesitancy Calculus of kidney GERD (gastroesophageal reflux disease) Idiopathic thrombocytopenic purpura (ITP) Compression fracture of L1 vertebra with routine healing Other spondylosis with radiculopathy, lumbar region Displacement of lumbar intervertebral disc 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 Asthma Attention-deficit hyperactivity disorder, predominantly inattentive type Generalized anxiety disorder Bipolar disorder, unspecified Surgical History H/O esophagogastroduodenoscopy (11/20/20) Status post colonoscopy (11/20/20) History of hernia repair Hx of tonsillectomy History of splenectomy Family History Mother Cancer Diabetes Family/Other Cancer UNCLE Denies family history of Anesthesia complication Bleeding disorder Social History Smoking and tobacco/nicotine status: never used tobacco/nicotine Second hand smoke exposure: Yes Alcohol intake: never Substance/Drug Use: never Caregiver/support person: Yes Lives independently: No Household members: family Marital status: Single Number of children: 0 service: No Current occupational status: disabled Current gender identity: Male Special law needs: No Data Anesthesia Cardiac Studies: No Data to Display
--- NOTE | 2024-01-28 07:16 | W.PM.OPSUD ---
Surgery/Procedure H&P Update DATE OF PROCEDURE: January 28, 2024 DATE H&P PERFORMED: 01/05/24 H&P UPDATE INFORMATION: I have reviewed H&P completed within last 30 days, I have examined patient prior to procedure and No changes to prior documentation PREOP DIAGNOSIS: Melena Chronic Diarrhea PLANNED PROCEDURE: Operation Date: 01/28/24 07:15 Proposed Procedures p EGD 20347, 67432, G0105, K92.1, K52.9, R10.13(Not Applicable) - DO macey Garcia Colonoscopy(Not Applicable) - Will Sanches DO
[2024-01-28 07:38] VITALS: BP 124/79; PULSE 100; RESP 14; TEMP 36.4; O2SAT 95
[2024-01-28 07:51] VITALS: BP 125/76; PULSE 88; RESP 18; O2SAT 95
[2024-01-28 08:00] VITALS: BP 123/80; PULSE 79; RESP 18; O2SAT 96
--- NOTE | 2024-01-28 08:15 | ANE.PACU2 ---
Inpatient post-anesthesia follow up: Airway intact: Yes Vital signs: Temperature 97.6 F Pulse Rate 79 Respiratory Rate 18 Blood Pressure 123/80 Pulse Oximetry 96 Oxygen Delivery Me thod Room Air Oxygen Flow Rate Fraction of Inspir ed Oxygen Hydration adequate: Yes Nausea and vomiting: No Pain level: 1 Mental status: Baseline
[2024-01-28 10:29] LABS: C.Diff PCR (Lab) NEGATIVE (Negative)
== END 2024-01-28 08:17 | disposition home or self-care (01) ==
PROVIDERS: PCP Family Medicine; Visit Provider Surgery
PROC: 0DJ08ZZ Inspection of Upper Intestinal Tract, Via Natural or Artificial Opening Endoscopic (ICD-10-PCS; CPT 43235; principal; 2024-01-28 07:15)
PROC: 0DJD8ZZ Inspection of Lower Intestinal Tract, Via Natural or Artificial Opening Endoscopic (ICD-10-PCS; CPT 45378; 2024-01-28 07:15)
DX: K92.1 Melena (principal); K52.9 Noninfective gastroenteritis and colitis, unspecified; R10.13 Epigastric pain; K57.30 Diverticulosis of large intestine without perforation or abscess without bleeding; G47.30 Sleep apnea, unspecified; G20.A1 Parkinson's disease without dyskinesia, without mention of fluctuations; K21.9 Gastro-esophageal reflux disease without esophagitis; E66.01 Morbid (severe) obesity due to excess calories; Z68.41 Body mass index [BMI] 40.0-44.9, adult; E78.5 Hyperlipidemia, unspecified
CPT/HCPCS: 43239; 45380; 82274; 83630; 87045; 87177; 87209; 87427; 87449; 87493; 88305; 88342; J2250; J2704; J7030

== ENCOUNTER → 2024-02-20 12:24 | Outpatient (BNVA) | payer MEDICAID, SELFPAY | PROVIDERS: PCP Family Medicine; Visit Provider Surgery | DX: R10.13 Epigastric pain (principal); Z83.79 Family history of other diseases of the digestive system; K52.9 Noninfective gastroenteritis and colitis, unspecified | CPT/HCPCS: 99212 ==

== ENCOUNTER → 2024-03-12 12:18 | Outpatient (BNVA) | payer MEDICAID, SELFPAY | PROVIDERS: PCP Family Medicine; Visit Provider Surgery | DX: Z91.014 Allergy to mammalian meats (principal) | CPT/HCPCS: 99212 ==

== ENCOUNTER → 2024-05-06 11:26 | Outpatient (BNVA) | payer OTHER, SELFPAY | PROVIDERS: PCP Family Medicine; Visit Provider Psychiatry & Neurology Psychiatry | DX: F31.9 Bipolar disorder, unspecified (principal); Z79.899 Other long term (current) drug therapy | CPT/HCPCS: 80061; 83036 ==

== ENCOUNTER → 2024-05-18 15:12 | Outpatient (BNVA) | payer MEDICARE, MEDICAID, SELFPAY ==
[2024-05-10 10:50] VITALS: BP 126/79; BMI 40.4
== END ==
PROVIDERS: PCP Family Medicine; Visit Provider Podiatrist Foot & Ankle Surgery
DX: M21.41 Flat foot [pes planus] (acquired), right foot (principal); M21.42 Flat foot [pes planus] (acquired), left foot; M72.2 Plantar fascial fibromatosis; M79.671 Pain in right foot; M79.672 Pain in left foot
CPT/HCPCS: 73630; 99203

== ENCOUNTER → 2024-06-28 10:57 | Outpatient (BNVA) | payer MEDICARE, SELFPAY ==
[2024-05-10 10:50] VITALS: BP 126/79; BMI 40.4
== END ==
PROVIDERS: PCP Family Medicine; Visit Provider Podiatrist Foot & Ankle Surgery
DX: M21.41 Flat foot [pes planus] (acquired), right foot (principal); M21.42 Flat foot [pes planus] (acquired), left foot; M72.2 Plantar fascial fibromatosis
CPT/HCPCS: 99213

== ENCOUNTER → 2024-08-25 08:29 | Outpatient (BNVA) | payer MEDICARE, SELFPAY ==
[2024-05-10 10:50] VITALS: BP 126/79; BMI 40.4
== END ==
PROVIDERS: PCP Family Medicine; Visit Provider Surgery
DX: K52.9 Noninfective gastroenteritis and colitis, unspecified (principal)
CPT/HCPCS: 99213

== ENCOUNTER → 2024-09-02 08:10 | Outpatient (BNVA) | payer MEDICARE, SELFPAY ==
[2024-05-10 10:50] VITALS: BP 126/79; BMI 40.4
== END ==
PROVIDERS: PCP Family Medicine; Visit Provider Podiatrist Foot & Ankle Surgery
DX: M72.2 Plantar fascial fibromatosis (principal); M21.41 Flat foot [pes planus] (acquired), right foot; M21.42 Flat foot [pes planus] (acquired), left foot; M79.671 Pain in right foot; M79.672 Pain in left foot
CPT/HCPCS: 99213